=== PATIENT | female | born 1935 | race Caucasian/White ===

== ENCOUNTER 2020-03-28 08:21 | Outpatient (REF) | payer MEDICARE, OTHER, SELFPAY ==
[2020-03-28 10:18] LABS: MANUAL DIFF FLAG NO
[2020-03-28 10:35] LABS: Basophils Percent Auto 0.8 % (0-2); Eosinophils Absolute Auto 0.2 X10*3/uL (0.0-0.4); Eosinophils Percent Auto 4.2 % (0-4); Hematocrit 36.7 % (37-47); Hemoglobin 11.4 g/dl (12.0-16.0); Imm Gran Abs Auto 0.01 X10*3/uL (0.00-0.03); Imm Gran Pct Auto 0.3 % (0.0-0.4); Lymphocytes Percent Auto 27.1 % (20-40); Mean Corpuscular HGB Conc 31.1 g/dl (31.0-35.0); Mean Corpuscular Hemoglobin 30.7 pg (27.0-33.0); Mean Corpuscular Volume 98.9 fL (80-98); Mean Platelet Volume 11.8 fL (9.4-12.3); Monocytes Absolute Auto 0.5 X10*3/uL (0.1-1.2); Monocytes Percent Auto 12.1 % (2-11); Neutrophils Absolute Auto 2.1 X10*3/uL (2.0-8.3); Neutrophils Percent Auto 55.5 % (45-73); Platelet Count 229 X10*3/uL (160-400); Red Blood Count 3.71 X10*6/uL (4.20-5.50); Red Cell Distribution Width 12.2 % (11.0-16.0); White Blood Count 3.8 X10*3/uL (4.8-10.8)
[2020-03-28 11:04] LABS: Alanine Aminotransferase 18 U/L (0-31); Albumin Level 4.1 g/dL (3.5-5.0); Alkaline Phosphatase 33 U/L (39-117); Anion Gap 15 (12-20); Aspartate Amino Transferase 24 U/L (5-31); Bilirubin Total 0.5 mg/dL (0.0-1.0); Blood Urea Nitrogen 27 mg/dL (9-16); Calcium 9.1 mg/dL (8.4-10.2); Carbon Dioxide 20 mmol/L (22-29); Chloride 111 mmol/L (96-108); Cholesterol 170 mg/dL; Estimated Glomerular Filt Rate 44; Glucose Fasting 94 mg/dL (60-99); HDL Cholesterol 53 mg/dL; LDL Cholesterol Calculated 80 mg/dl; Potassium 4.8 mmol/l (3.3-5.1); Sodium 141 mmol/L (135-145); Total Protein 6.9 g/dL (6.5-8.0); Triglycerides 189 mg/dL
[2020-03-28 13:16] LABS: Renal w Reflex Lab Use Only Order verified
== END 2020-03-28 08:22 | disposition home or self-care (01) ==
LOC: HO.10HDL 08:21
PROVIDERS: Absent Provider Internal Medicine Nephrology; Visit Provider Internal Medicine
DX: I12.9 Hypertensive chronic kidney disease with stage 1 through stage 4 chronic kidney disease, or unspecified chronic kidney disease (principal); N18.30 Chronic kidney disease, stage 3 unspecified; D64.9 Anemia, unspecified; E78.5 Hyperlipidemia, unspecified
CPT/HCPCS: 36415; 80053; 80061; 85025

== ENCOUNTER 2020-09-06 08:17 | Outpatient (REF) | payer MEDICARE, OTHER, SELFPAY ==
[2020-09-06 10:03] LABS: MANUAL DIFF FLAG NO
[2020-09-06 10:07] LABS: Basophils Percent Auto 0.6 % (0-2); Eosinophils Absolute Auto 0.2 X10*3/uL (0.0-0.4); Eosinophils Percent Auto 3.7 % (0-4); Hematocrit 38.4 % (37-47); Imm Gran Abs Auto 0.02 X10*3/uL (0.00-0.03); Imm Gran Pct Auto 0.4 % (0.0-0.4); Lymphocytes Absolute Auto 1.2 X10*3/uL (1.2-4.9); Lymphocytes Percent Auto 24.7 % (20-40); Mean Corpuscular HGB Conc 31.3 g/dl (31.0-35.0); Mean Corpuscular Hemoglobin 30.7 pg (27.0-33.0); Mean Corpuscular Volume 98.2 fL (80-98); Mean Platelet Volume 11.6 fL (9.4-12.3); Monocytes Absolute Auto 0.6 X10*3/uL (0.1-1.2); Monocytes Percent Auto 11.4 % (2-11); NRBC Pct Auto 0.6 /100WBC (0.0-0.2); Neutrophils Absolute Auto 2.9 X10*3/uL (2.0-8.3); Neutrophils Percent Auto 59.2 % (45-73); Platelet Count 237 X10*3/uL (160-400); Red Blood Count 3.91 X10*6/uL (4.20-5.50); White Blood Count 4.9 X10*3/uL (4.8-10.8)
[2020-09-06 10:39] LABS: Alanine Aminotransferase 17 U/L (0-31); Albumin Level 4.4 g/dL (3.5-5.0); Alkaline Phosphatase 37 U/L (39-117); Anion Gap 14 (12-20); Aspartate Amino Transferase 22 U/L (5-31); Bilirubin Total 0.4 mg/dL (0.0-1.0); Blood Urea Nitrogen 30 mg/dL (9-16); Calcium 10.1 mg/dL (8.4-10.2); Carbon Dioxide 23 mmol/L (22-29); Chloride 109 mmol/L (96-108); Estimated Glomerular Filt Rate 46; Glucose Fasting 103 mg/dL (60-99); Phosphorus 3.4 mg/dL (2.7-4.5); Potassium 4.9 mmol/L (3.3-5.1); Sodium 141 mmol/L (135-145); Total Protein 7.4 g/dL (6.5-8.0)
[2020-09-07 13:06] LABS: Calcium (PTHI) 10.2 mg/dL (8.6-10.4); PTHI 9 pg/mL (14-64)
== END 2020-09-06 08:18 | disposition home or self-care (01) ==
LOC: HO.10HDL 08:17
PROVIDERS: Absent Provider Internal Medicine Nephrology; Visit Provider Internal Medicine
DX: I12.9 Hypertensive chronic kidney disease with stage 1 through stage 4 chronic kidney disease, or unspecified chronic kidney disease (principal); N18.31 Chronic kidney disease, stage 3a
CPT/HCPCS: 36415; 80053; 83970; 84100; 85025

== ENCOUNTER 2020-09-11 11:36 | Outpatient (REF) | payer MEDICARE, OTHER, SELFPAY ==
[2020-09-11 15:07] LABS: Creatinine Urine 74.12 mg/dL; Microalbum/Creatinine Ratio Ur 9.4 ug/mg cr; Total Protein Urine Random < 7 mg/dL (<12)
== END 2020-09-11 11:37 | disposition home or self-care (01) ==
LOC: HO.10HDLNP 11:36
PROVIDERS: Visit Provider Internal Medicine Nephrology
DX: I12.9 Hypertensive chronic kidney disease with stage 1 through stage 4 chronic kidney disease, or unspecified chronic kidney disease (principal); N18.31 Chronic kidney disease, stage 3a
CPT/HCPCS: 82043; 84156

== ENCOUNTER 2020-12-25 12:48 | Outpatient (REF) | payer MEDICARE, OTHER, SELFPAY ==
--- NOTE | ~2020-12-25 | US_ITS ---
EXAMINATION: US EXTRACRANIAL CAROTID DUPLEX, BILATERAL CLINICAL INFORMATION: This is an 85-year-old female with right carotid bruit. Carotid artery disease. History of carotid artery stenosis. COMPARISON: Comparison is made to a previous study dated 12/06/2019 which demonstrated 50-79% right internal carotid artery stenosis and 0-49% left internal carotid artery stenosis. TECHNIQUE: Real-time ultrasound and Doppler techniques (integrating B-mode 2-D vascular images, Doppler spectral analysis and color-flow Doppler imaging) were utilized to interrogate the extracranial carotid arteries, the vertebral arteries and proximal subclavian arteries bilaterally. The degree of stenosis is determined by criteria similar to NASCET. FINDINGS: Right Side: 1. There is moderate atherosclerotic plaque seen in the bifurcation/proximal ICA region. 2. The common carotid artery PSV proximally is 69 cm/s and distally 72 cm/s. 3. The proximal internal carotid artery velocities are 168 cm/s systolic and 33 cm/s diastolic. 4. The proximal external carotid artery PSV is 87 cm/s. 5. The vertebral artery shows antegrade flow. 6. The subclavian artery waveforms are normal. Left Side: 1. There is moderate atherosclerotic plaque seen in the bifurcation/proximal ICA region. 2. The common carotid artery PSV proximally is 79 cm/s and distally 101 cm/s. 3. The proximal internal carotid artery velocities are 81 cm/s systolic and 25 cm/s diastolic. 4. The proximal external carotid artery PSV is 86 cm/s. 5. The vertebral artery shows antegrade flow. 6. The subclavian artery waveforms are normal. US/US carotid duplex BI IMPRESSION: 1. RIGHT: Moderate, hemodynamically significant stenosis of the proximal right internal carotid artery corresponding to a 50-79% stenosis by velocity criteria. 2. LEFT: Minimal, non-hemodynamically significant stenosis of the proximal left internal carotid artery corresponding to a 0-49% stenosis by velocity criteria. 3. There is no change in the category severity of disease when compared to the previous study dated 12/06/2019.
== END 2020-12-25 12:49 | disposition home or self-care (01) ==
LOC: HO.US 12:48
PROVIDERS: PCP Internal Medicine; Visit Provider Surgery Vascular Surgery
DX: I65.21 Occlusion and stenosis of right carotid artery (principal)
CPT/HCPCS: 93880

== ENCOUNTER → 2021-01-02 09:16 | Outpatient (BNVA) | payer MEDICARE, OTHER, SELFPAY | PROVIDERS: PCP Internal Medicine; Visit Provider Surgery Vascular Surgery | DX: I65.23 Occlusion and stenosis of bilateral carotid arteries (principal) | CPT/HCPCS: 99212 ==

== ENCOUNTER 2021-01-10 08:58 | Outpatient (REF) | payer MEDICARE, OTHER, SELFPAY ==
[2021-01-10 11:19] LABS: Anion Gap 14 (12-20); Blood Urea Nitrogen 28 mg/dL (9-16); Carbon Dioxide 21 mmol/L (22-29); Chloride 110 mmol/L (96-108); Estimated Glomerular Filt Rate 45; Potassium 4.8 mmol/L (3.3-5.1); Sodium 140 mmol/L (135-145)
== END 2021-01-10 08:59 | disposition home or self-care (01) ==
LOC: HO.10HDL 08:58
PROVIDERS: Visit Provider Internal Medicine Nephrology
DX: I12.9 Hypertensive chronic kidney disease with stage 1 through stage 4 chronic kidney disease, or unspecified chronic kidney disease (principal); N18.31 Chronic kidney disease, stage 3a
CPT/HCPCS: 36415; 80051; 82310; 82565; 84520

== ENCOUNTER 2021-03-28 08:09 | Outpatient (REF) | payer MEDICARE, OTHER, SELFPAY ==
--- NOTE | ~2021-03-28 | MM_ITS ---
EXAMINATION: MM SCREENING DIGITAL BREAST TOMOSYNTHESIS, BILATERAL CLINICAL INFORMATION: Screening. Asymptomatic. The lifetime risk of breast cancer based on the Tyrer-Cuzick Model is 1%. COMPARISON: Mammography: 03/11/2019, 12/23/2017, 11/14/2016 TECHNIQUE: Digital breast tomosynthesis is performed in both the craniocaudal and mediolateral oblique views along with computer-aided detection (CAD). Synthesized 2D images are generated from the tomosynthesis. Additional exaggerated left CC view is provided. FINDINGS: There are scattered areas of fibroglandular density (ACR BI-RADS breast composition Category b). There are no significant masses, abnormal calcifications, or other abnormalities. Fine fibronodular parenchymal pattern is similar to prior studies. There are scattered isolated and grouped round and coarse and some vascular calcifications. The axilla and skin contours are unremarkable. No significant changes. MM/MM tomosynthesis screening BI IMPRESSION: No mammographic evidence of malignancy. ASSESSMENT: BI-RADS 2: Benign RECOMMENDATION: Routine annual mammography screening. This patient's information was entered into a reminder system with a target due date for their next mammogram.
--- NOTE | ~2021-03-28 | MM_ITS ---
EXAMINATION: BONE DENSITOMETRY CLINICAL INDICATION: Screening. COMPARISON: Previous BD dated 03/11/2019 and baseline BD dated 10/24/2009. TECHNIQUE: Using a [employer] DXA System (software version: 13.1) manufactured by [employer], dual-energy x-ray absorptiometry was performed of the lumbar spine and left hip. The images are of good technical quality. Summary results are attached. FINDINGS: AP SPINE L1-L4: Current: BMD 1.350 g/cm2, Z-score 2.8, T-score 1.4, normal, 0.8% increase from previous, 6.6% increase from baseline (<5% change is not significant). Prior: BMD 1.339 g/cm2. Baseline: BMD 1.267 g/cm2. LEFT FEMUR, NECK: Current: BMD 0.799 g/cm2, Z-score 0.3, T-score -1.7, osteopenia. Prior: BMD 0.778 g/cm2. Baseline: BMD 0.876 g/cm2. LEFT FEMUR, TOTAL: Current: BMD 0.788 g/cm2, Z-score 0.1, T-score -1.7, osteopenia, 2.6% increase from previous, 7.5% decrease from baseline (<5% change is not significant). Prior: BMD 0.768 g/cm2. Baseline: BMD 0.852 g/cm2. IDENTIFIED RISK FACTORS: Early menopause, height loss, secondary osteoporosis. HISTORY OF FRACTURE: None listed. MEDICATIONS: Calcium, vitamin D. MM/XR DEXA axial skeleton IMPRESSION: 1. DIAGNOSIS: Osteopenia based on the lowest T-score value of -1.7 in the femur neck and total femur applying World Health Organization criteria. 2. 10-YEAR FRACTURE RISK PREDICTION, FRAX: Major osteoporotic fracture (clinical spine, forearm, hip or shoulder) 14.0%. Hip fracture 3.9%. 3. Treatment Recommendations: NOF guidelines recommend consideration for treatment in postmenopausal women and men age 50 and older presenting with the following: -A hip or vertebral (clinical or morphometric) fracture. -T-score less than or equal to -2.5 at the femoral neck or spine after appropriate evaluation to exclude secondary causes. -Low bone mass at the hip or spine and a 10-year fracture probability by FRAX of greater than or equal to 3% for hip fracture or greater than or equal to 20% for major osteoporotic fracture based on the [place] adapted WHO algorithm. 4. Other Recommendations: All treatment decisions require clinical judgment and consideration of individual patient factors, including patient preferences, comorbidities, previous drug use, risk factors not captured in the FRAX model (e.g. frailty, falls, vitamin D deficiency, increased bone turnover, interval significant decline in bone density) and possible under or overestimation of fracture risk by FRAX. Additional medical evaluation for secondary cause of low bone mineral density may be appropriate. FUTURE SCAN RECOMMENDATION: People with diagnosed cases of osteoporosis or at high risk for fracture should have regular bone mineral density tests. For patients eligible for Medicare, routine testing is allowed once every 2 years. The testing frequency can be increased to one year for patients who have rapidly progressing disease, those who are receiving or discontinuing medical therapy to restore bone mass, or have additional risk factors.
== END 2021-03-28 08:10 | disposition home or self-care (01) ==
LOC: HO.MAMMO 08:09
PROVIDERS: Visit Provider Internal Medicine
DX: Z12.31 Encounter for screening mammogram for malignant neoplasm of breast (principal); Z13.820 Encounter for screening for osteoporosis; M85.80 Other specified disorders of bone density and structure, unspecified site; Z78.0 Asymptomatic menopausal state; Z79.899 Other long term (current) drug therapy
CPT/HCPCS: 77063; 77067; 77080

== ENCOUNTER 2021-04-27 08:43 | Outpatient (REF) | payer MEDICARE, OTHER, SELFPAY ==
[2021-04-27 10:38] LABS: MANUAL DIFF FLAG NO
[2021-04-27 10:41] LABS: Appearance Urine HAZY; Color Urine YELLOW; Glucose Urine UA NEG (NEG); Leukocyte Esterase Urine 3+ (NEG); Nitrite Urine NEG (NEG); Urine Blood NEG (NEG); Urine Ketones NEG (NEG); Urine Protein NEG (NEG-TRACE)
[2021-04-27 10:42] LABS: Basophils Percent Auto 0.6 % (0-2); Eosinophils Absolute Auto 0.2 X10*3/uL (0.0-0.4); Eosinophils Percent Auto 4.3 % (0-4); Hematocrit 37.3 % (37.0-47.0); Hemoglobin 11.9 g/dl (12.0-16.0); Imm Gran Abs Auto 0.01 X10*3/uL (0.00-0.03); Imm Gran Pct Auto 0.2 % (0.0-0.4); Lymphocytes Absolute Auto 1.2 X10*3/uL (1.2-4.9); Lymphocytes Percent Auto 26.4 % (20-40); Mean Corpuscular HGB Conc 31.9 g/dl (31.0-35.0); Mean Corpuscular Hemoglobin 30.7 pg (27.0-33.0); Mean Corpuscular Volume 96.4 fL (80.0-98.0); Mean Platelet Volume 11.6 fL (9.4-12.3); Monocytes Absolute Auto 0.6 X10*3/uL (0.1-1.2); Monocytes Percent Auto 12.4 % (2-11); Neutrophils Absolute Auto 2.6 x10*3/uL (2.0-8.3); Neutrophils Percent Auto 56.1 % (45-73); Platelet Count 251 X10*3/uL (160-400); Red Blood Count 3.87 X10*6/uL (4.20-5.50); Red Cell Distribution Width 12.1 % (11.0-16.0); White Blood Count 4.7 X10*3/uL (4.8-10.8)
[2021-04-27 10:49] LABS: Bacteria Urine TRACE /LPF; RBC Urine 0-2 /HPF (0)
[2021-04-27 10:50] LABS: Mucus Urine 1+ /LPF; Renal Epithelial Cells Urine 1+ /LPF; Squamous Epithelial Cell Urine 2+ /LPF
[2021-04-27 10:58] LABS: Alanine Aminotransferase 19 U/L (0-31); Albumin Level 4.3 g/dL (3.5-5.0); Alkaline Phosphatase 39 U/L (39-117); Anion Gap 14 (12-20); Aspartate Amino Transferase 26 U/L (5-31); Bilirubin Total 0.6 mg/dL (0.0-1.0); Blood Urea Nitrogen 27 mg/dL (9-16); Carbon Dioxide 22 mmol/L (22-29); Chloride 109 mmol/L (96-108); Cholesterol 181 mg/dL; Estimated Glomerular Filt Rate 42; Glucose Fasting 104 mg/dL (60-99); HDL Cholesterol 61 mg/dL; LDL Cholesterol Calculated 93 mg/dl; Potassium 4.5 mmol/L (3.3-5.1); Sodium 140 mmol/L (135-145); Total Protein 7.2 g/dL (6.5-8.0); Triglycerides 138 mg/dL
[2021-04-27 11:11] LABS: Creatinine Urine 67.27 mg/dL; Total Protein Urine Random < 7 mg/dL (<12)
== END 2021-04-27 08:44 | disposition home or self-care (01) ==
LOC: HO.10HDL 08:43
PROVIDERS: Absent Provider Internal Medicine Nephrology; Visit Provider Internal Medicine
DX: I12.9 Hypertensive chronic kidney disease with stage 1 through stage 4 chronic kidney disease, or unspecified chronic kidney disease (principal); N18.9 Chronic kidney disease, unspecified; E78.00 Pure hypercholesterolemia, unspecified; M19.90 Unspecified osteoarthritis, unspecified site; K57.90 Diverticulosis of intestine, part unspecified, without perforation or abscess without bleeding
CPT/HCPCS: 36415; 80053; 80061; 81001; 84156; 85025

== ENCOUNTER 2021-12-20 09:05 | Outpatient (REF) | payer MEDICARE, OTHER, SELFPAY ==
[2021-12-20 10:54] LABS: MANUAL DIFF FLAG NO
[2021-12-20 11:13] LABS: Basophils Percent Auto 0.6 % (0-2); Eosinophils Absolute Auto 0.2 X10*3/uL (0.0-0.4); Eosinophils Percent Auto 3.2 % (0-4); Hematocrit 37.1 % (37.0-47.0); Hemoglobin 11.8 g/dl (12.0-16.0); Imm Gran Abs Auto 0.02 X10*3/uL (0.00-0.03); Imm Gran Pct Auto 0.4 % (0.0-0.4); Lymphocytes Absolute Auto 1.5 X10*3/uL (1.2-4.9); Lymphocytes Percent Auto 30.9 % (20-40); Mean Corpuscular HGB Conc 31.8 g/dl (31.0-35.0); Mean Corpuscular Hemoglobin 30.3 pg (27.0-33.0); Mean Corpuscular Volume 95.1 fL (80.0-98.0); Mean Platelet Volume 11.6 fL (9.4-12.3); Monocytes Absolute Auto 0.7 X10*3/uL (0.1-1.2); Neutrophils Absolute Auto 2.4 x10*3/uL (2.0-8.3); Neutrophils Percent Auto 49.9 % (45-73); Platelet Count 249 X10*3/uL (160-400); Red Cell Distribution Width 12.7 % (11.0-16.0); White Blood Count 4.7 X10*3/uL (4.8-10.8)
[2021-12-20 12:10] LABS: Alanine Aminotransferase 14 U/L (0-31); Albumin Level 4.2 g/dL (3.5-5.0); Alkaline Phosphatase 40 U/L (39-117); Anion Gap 18 (12-20); Aspartate Amino Transferase 22 U/L (5-31); Bilirubin Total 0.4 mg/dL (0.0-1.0); Blood Urea Nitrogen 31 mg/dL (9-16); C Reactive Protein 0.12 mg/dL (< or = 0.50); Calcium 9.5 mg/dL (8.4-10.2); Carbon Dioxide 17 mmol/L (22-29); Chloride 111 mmol/L (96-108); Estimated Glomerular Filt Rate 40; Glucose Random 120 mg/dL (60-115); Lipase 71 U/L (8-78); Potassium 5.5 mmol/L (3.3-5.1); Sodium 140 mmol/L (135-145); Total Protein 7.2 g/dL (6.5-8.0)
== END 2021-12-20 09:06 | disposition home or self-care (01) ==
LOC: HO.10HDL 09:05
PROVIDERS: Absent Provider Internal Medicine Nephrology; Visit Provider Internal Medicine
DX: I12.9 Hypertensive chronic kidney disease with stage 1 through stage 4 chronic kidney disease, or unspecified chronic kidney disease (principal); N18.31 Chronic kidney disease, stage 3a; R10.9 Unspecified abdominal pain; K21.9 Gastro-esophageal reflux disease without esophagitis
CPT/HCPCS: 36415; 80053; 83690; 85025; 86140

== ENCOUNTER 2022-02-28 09:44 | Outpatient (REF) | payer MEDICARE, OTHER, SELFPAY ==
--- NOTE | ~2022-02-28 | US_ITS ---
EXAMINATION: US EXTRACRANIAL CAROTID DUPLEX, BILATERAL CLINICAL INFORMATION: Occlusion and stenosis bilateral carotids COMPARISON: 12/25/2020 TECHNIQUE: Real-time ultrasound and Doppler techniques (integrating B-mode 2-D vascular images, Doppler spectral analysis and color-flow Doppler imaging) were utilized to interrogate the extracranial carotid arteries, the vertebral arteries and proximal subclavian arteries bilaterally. The degree of stenosis is determined by criteria similar to NASCET. FINDINGS: Right Side: 1. There is moderate heterogeneously calcified atherosclerotic plaque seen in the bifurcation/proximal ICA region. 2. The common carotid artery PSV proximally is 70.8 cm/s and distally 57.8 cm/s. 3. The proximal internal carotid artery velocities are 105 cm/s systolic and 22.4 cm/s diastolic. 4. The proximal external carotid artery PSV is 70.9 cm/s. 5. The vertebral artery shows antegrade flow. 6. The subclavian artery waveforms are normal. Left Side: 1. There is moderate heterogeneously calcified atherosclerotic plaque seen in the bifurcation/proximal ICA region. 2. The common carotid artery PSV proximally is 82 cm/s and distally 84.5 cm/s. 3. The proximal internal carotid artery velocities are 83.9 cm/s systolic and 16.8 cm/s diastolic. 4. The proximal external carotid artery PSV is 62.7 cm/s. 5. The vertebral artery shows antegrade flow. 6. The subclavian artery waveforms are normal. US/US carotid duplex BI IMPRESSION: 1. RIGHT: Minimal, non-hemodynamically significant stenosis of the proximal right internal carotid artery corresponding to a 0-49% stenosis by velocity criteria. 2. LEFT: Minimal, non-hemodynamically significant stenosis of the proximal left internal carotid artery corresponding to a 0-49% stenosis by velocity criteria.
== END 2022-02-28 09:45 | disposition home or self-care (01) ==
LOC: HO.US 09:44
PROVIDERS: PCP Internal Medicine; Visit Provider Internal Medicine
DX: I65.23 Occlusion and stenosis of bilateral carotid arteries (principal)
CPT/HCPCS: 93880

== ENCOUNTER 2022-04-03 08:00 | Outpatient (REF) | payer MEDICARE, OTHER, SELFPAY ==
--- NOTE | ~2022-04-03 | MM_ITS ---
EXAMINATION: MM SCREENING DIGITAL BREAST TOMOSYNTHESIS, BILATERAL CLINICAL INFORMATION: Screening. Asymptomatic. Family history breast cancer, sister. COMPARISON: Mammography: 03/28/2021, 03/11/2019, 12/23/2017 TECHNIQUE: Digital breast tomosynthesis is performed in both the craniocaudal and mediolateral oblique views along with computer-aided detection (CAD). Synthesized 2D images are generated from the tomosynthesis. FINDINGS: There are scattered areas of fibroglandular density (ACR BI-RADS breast composition Category b). Background stromal and fibroglandular densities are stable. There is incidental intramammary node mid 9:00 right breast. No interval mass or architectural abnormality or developing density. The axilla and skin contours are unremarkable. There are scattered round and vascular calcifications. Stable loosely grouped calcifications posterior 12:00 right breast. Right breast also has loosely grouped round calcifications mid 12:00 position possibly increased from prior exam. Patient will be recalled for additional imaging with magnification views. MM/MM tomosynthesis screening BI IMPRESSION: Right: -Loosely grouped calcifications mid right breast, questionably increased from prior exam. Left: -No mammographic evidence of malignancy. ASSESSMENT: BI-RADS 0: Incomplete - Need Additional Imaging Evaluation RECOMMENDATION: 1. Additional views of the right breast (magnification CC, magnification ML). 2. Radiology department staff will contact the patient for additional imaging. This patient's information was entered into a reminder system with a target due date for their next mammogram.
== END 2022-04-03 08:01 | disposition home or self-care (01) ==
LOC: HO.MAMMO 08:00
PROVIDERS: Visit Provider Internal Medicine
DX: Z12.31 Encounter for screening mammogram for malignant neoplasm of breast (principal)
CPT/HCPCS: 77063; 77067

== ENCOUNTER 2022-04-15 08:45 | Outpatient (REF) | payer MEDICARE, OTHER, SELFPAY ==
--- NOTE | ~2022-04-15 | MM_ITS ---
EXAMINATION: MM DIAGNOSTIC DIGITAL MAMMOGRAPHY, RIGHT CLINICAL INFORMATION: Recall from screening for loosely grouped calcifications mid 12:00 right breast. Family history breast cancer, sister. COMPARISON: Mammography: 04/03/2022, 03/28/2021, 03/11/2019 TECHNIQUE: Digital mammography is performed in the following views: Magnification CC, magnification ML. FINDINGS: There are scattered areas of fibroglandular density (ACR BI-RADS breast composition Category b). The additional magnification views show benign appearing loosely grouped round calcifications mid 12:00 right breast. There are no pleomorphic types or ductal distribution. Calcifications are increased since 2019. Results are discussed with the patient at time of visit. Calcifications have a benign appearance and will be reassessed again in 6 months to include magnification views. MM/MM added views RT IMPRESSION: Additional views demonstrate benign-appearing loosely grouped round calcifications mid 12:00. ASSESSMENT: BI-RADS 3: Probably Benign RECOMMENDATION: Diagnostic right mammography in 6 months. This patient's information was entered into a reminder system with a target due date for their next mammogram.
== END 2022-04-15 08:46 | disposition home or self-care (01) ==
LOC: HO.MAMMO 08:45
PROVIDERS: PCP Internal Medicine; Visit Provider Internal Medicine
DX: R92.1 Mammographic calcification found on diagnostic imaging of breast (principal)
CPT/HCPCS: 77065

== ENCOUNTER → 2022-04-18 13:00 | Outpatient (BNVA) | payer MEDICARE, OTHER, SELFPAY | PROVIDERS: PCP Internal Medicine; Visit Provider Surgery Vascular Surgery | DX: I65.23 Occlusion and stenosis of bilateral carotid arteries (principal); I10 Essential (primary) hypertension; E78.5 Hyperlipidemia, unspecified | CPT/HCPCS: 99212 ==

== ENCOUNTER 2022-07-02 08:14 | Outpatient (REF) | payer MEDICARE, OTHER, SELFPAY ==
[2022-07-02 10:37] LABS: MANUAL DIFF FLAG NO
[2022-07-02 10:53] LABS: Basophils Absolute Auto 0.1 X10*3/uL (0.0-0.2); Eosinophils Absolute Auto 0.2 X10*3/uL (0.0-0.4); Eosinophils Percent Auto 4.7 % (0-4); Hemoglobin 11.8 g/dl (12.0-16.0); Imm Gran Abs Auto 0.02 X10*3/uL (0.00-0.03); Imm Gran Pct Auto 0.4 % (0.0-0.4); Lymphocytes Absolute Auto 1.5 X10*3/uL (1.2-4.9); Lymphocytes Percent Auto 28.9 % (20-40); Mean Corpuscular HGB Conc 31.1 g/dl (31.0-35.0); Mean Corpuscular Hemoglobin 30.6 pg (27.0-33.0); Mean Corpuscular Volume 98.7 fL (80.0-98.0); Mean Platelet Volume 12.2 fL (9.4-12.3); Monocytes Absolute Auto 0.6 X10*3/uL (0.1-1.2); Monocytes Percent Auto 12.3 % (2-11); Neutrophils Absolute Auto 2.7 x10*3/uL (2.0-8.3); Neutrophils Percent Auto 52.7 % (45-73); Platelet Count 225 X10*3/uL (160-400); Red Blood Count 3.85 X10*6/uL (4.20-5.50); Red Cell Distribution Width 12.7 % (11.0-16.0); White Blood Count 5.1 X10*3/uL (4.8-10.8)
[2022-07-02 11:08] LABS: Alanine Aminotransferase 18 U/L (0-31); Albumin Level 4.1 g/dL (3.5-5.0); Alkaline Phosphatase 36 U/L (39-117); Anion Gap 13 (12-20); Aspartate Amino Transferase 25 U/L (5-31); Bilirubin Total 0.5 mg/dL (0.0-1.0); Blood Urea Nitrogen 29 mg/dL (9-16); Calcium 9.9 mg/dL (8.4-10.2); Carbon Dioxide 22 mmol/L (22-29); Chloride 109 mmol/L (96-108); Cholesterol 184 mg/dL; Estimated Glomerular Filt Rate 45; Glucose Fasting 101 mg/dL (60-99); HDL Cholesterol 58 mg/dL; LDL Cholesterol Calculated 93 mg/dl; Potassium 4.4 mmol/L (3.3-5.1); Sodium 140 mmol/L (135-145); Total Protein 6.9 g/dL (6.5-8.0); Triglycerides 168 mg/dL
== END 2022-07-02 08:15 | disposition home or self-care (01) ==
LOC: HO.10HDL 08:14
PROVIDERS: Absent Provider Internal Medicine Nephrology; Visit Provider Internal Medicine
DX: I12.9 Hypertensive chronic kidney disease with stage 1 through stage 4 chronic kidney disease, or unspecified chronic kidney disease (principal); N18.31 Chronic kidney disease, stage 3a; E78.00 Pure hypercholesterolemia, unspecified
CPT/HCPCS: 36415; 80053; 80061; 85025

== ENCOUNTER 2022-10-18 12:59 | Outpatient (REF) | payer MEDICARE, OTHER, SELFPAY ==
--- NOTE | ~2022-10-18 | MM_ITS ---
EXAMINATION: MM DIAGNOSTIC DIGITAL BREAST TOMOSYNTHESIS, RIGHT CLINICAL INFORMATION: Short interval six-month follow-up probable benign loosely grouped round calcifications mid 12:00 right breast. COMPARISON: Mammography: 04/15/2022, 06/03/2021 (BI-RADS 0), 03/28/2021, 03/11/2019 TECHNIQUE: Digital breast tomosynthesis is performed in both the craniocaudal and mediolateral oblique views along with computer-aided detection (CAD). Synthesized 2D images are generated from the tomosynthesis. Additional magnification right CC x2 and magnification right ML views are obtained. FINDINGS: There are scattered areas of fibroglandular density (ACR BI-RADS breast composition Category b). Parenchymal pattern is similar to prior studies and there is no developing density or interval mass or architectural abnormality. Intramammary node again seen mid 9:00 right breast. The axilla and skin contours are unremarkable. There are scattered benign round and vascular calcifications. The loosely grouped calcifications for short interval follow-up mid 12:00 position are stable from prior diagnostic exam and have a probable benign appearance. They will be reassessed again at time of annual bilateral mammography, due in 6 months. Results are provided to the patient at time of visit by the technologist. MM/MM tomosynthesis diagnostic RT IMPRESSION: -No mammographic evidence of malignancy. -Calcifications for follow-up mid 12:00, stable. ASSESSMENT: BI-RADS 3: Probably Benign RECOMMENDATION: Diagnostic mammography at time of annual bilateral mammography, due in 6 months. This patient's information was entered into a reminder system with a target due date for their next mammogram.
== END 2022-10-18 13:00 | disposition home or self-care (01) ==
LOC: HO.MAMMO 12:59
PROVIDERS: PCP Internal Medicine; Visit Provider Internal Medicine
DX: R92.1 Mammographic calcification found on diagnostic imaging of breast (principal)
CPT/HCPCS: 77061; 77065

== ENCOUNTER 2022-12-31 08:45 | Outpatient (REF) | payer MEDICARE, OTHER, SELFPAY ==
[2022-12-31 10:44] LABS: MANUAL DIFF FLAG NO
[2022-12-31 10:52] LABS: Basophils Absolute Auto 0.1 X10*3/uL (0.0-0.2); Basophils Percent Auto 0.9 % (0-2); Eosinophils Absolute Auto 0.2 X10*3/uL (0.0-0.4); Eosinophils Percent Auto 3.4 % (0-4); Hematocrit 37.2 % (37.0-47.0); Hemoglobin 11.5 g/dl (12.0-16.0); Imm Gran Abs Auto 0.01 X10*3/uL (0.00-0.03); Imm Gran Pct Auto 0.2 % (0.0-0.4); Lymphocytes Absolute Auto 1.7 X10*3/uL (1.2-4.9); Mean Corpuscular HGB Conc 30.9 g/dl (31.0-35.0); Mean Corpuscular Hemoglobin 30.7 pg (27.0-33.0); Mean Corpuscular Volume 99.2 fL (80.0-98.0); Mean Platelet Volume 11.5 fL (9.4-12.3); Monocytes Absolute Auto 0.7 X10*3/uL (0.1-1.2); Neutrophils Absolute Auto 2.9 x10*3/uL (2.0-8.3); Neutrophils Percent Auto 51.5 % (45-73); Platelet Count 254 X10*3/uL (160-400); Red Blood Count 3.75 X10*6/uL (4.20-5.50); Red Cell Distribution Width 13.2 % (11.0-16.0); White Blood Count 5.5 X10*3/uL (4.8-10.8)
[2022-12-31 11:02] LABS: Alanine Aminotransferase 16 U/L (0-31); Albumin Level 4.1 g/dL (3.5-5.0); Alkaline Phosphatase 32 U/L (39-117); Anion Gap 12 (12-20); Aspartate Amino Transferase 23 U/L (5-31); Bilirubin Total 0.3 mg/dL (0.0-1.0); Blood Urea Nitrogen 34 mg/dL (9-16); Calcium 9.7 mg/dL (8.4-10.2); Carbon Dioxide 18 mmol/L (22-29); Chloride 117 mmol/L (96-108); Estimated Glomerular Filt Rate 51; Glucose Random 114 mg/dL (60-115); Potassium 4.2 mmol/L (3.3-5.1); Sodium 143 mmol/L (135-145); Total Protein 7.2 g/dL (6.5-8.0)
[2022-12-31 11:06] LABS: Anion Gap 13 (12-20); Blood Urea Nitrogen 33 mg/dL (9-16); Calcium 10.1 mg/dL (8.4-10.2); Carbon Dioxide 18 mmol/L (22-29); Chloride 117 mmol/L (96-108); Estimated Glomerular Filt Rate 52; Potassium 4.3 mmol/L (3.3-5.1); Sodium 144 mmol/L (135-145)
[2022-12-31 11:25] LABS: Vitamin D 25-OH Total 33.1 ng/mL (>30)
== END 2022-12-31 08:46 | disposition home or self-care (01) ==
LOC: HO.10HDL 08:45
PROVIDERS: Absent Provider Internal Medicine Nephrology; Visit Provider Internal Medicine
DX: I12.9 Hypertensive chronic kidney disease with stage 1 through stage 4 chronic kidney disease, or unspecified chronic kidney disease (principal); N18.9 Chronic kidney disease, unspecified; K57.90 Diverticulosis of intestine, part unspecified, without perforation or abscess without bleeding
CPT/HCPCS: 36415; 80051; 80053; 82306; 82310; 82565; 84520; 85025

== ENCOUNTER 2023-04-08 15:16 | Outpatient (REF) | payer MEDICARE, OTHER, SELFPAY ==
--- NOTE | ~2023-04-08 | US_ITS ---
EXAMINATION: US VENOUS ULTRASOUND WITH DOPPLER LOWER EXTREMITY, LEFT CLINICAL INFORMATION: Left leg pain. COMPARISON: None available. TECHNIQUE: Ultrasound of the deep veins is performed from the hip to the calf with compression sonography and color and pulse Doppler assessment. Spectral analysis with color-flow imaging is performed. FINDINGS: There is normal venous compression and respiratory variation and augmented flow. The visualized common femoral vein, superficial femoral vein, profunda femoral vein, popliteal vein, and the trifurcation region shows no evidence of deep venous thrombosis. There is a 7.5 x 1 x 4.1 cm popliteal fossa cyst. If the patient's symptoms persist, followup ultrasound in 5 days 7 days might be of value to exclude proximal propagation from a non-visualized calf vein. US/US venous duplex LE IMPRESSION: No DVT demonstrated in the left lower extremity.
== END 2023-04-08 15:17 | disposition home or self-care (01) ==
LOC: HO.US 15:16
PROVIDERS: Visit Provider Internal Medicine
DX: M79.605 Pain in left leg (principal)
CPT/HCPCS: 93971

== ENCOUNTER 2023-05-13 12:42 | Outpatient (REF) | payer MEDICARE, OTHER, SELFPAY ==
--- NOTE | ~2023-05-13 | MM_ITS ---
EXAMINATION: MM DIAGNOSTIC DIGITAL BREAST TOMOSYNTHESIS, BILATERAL CLINICAL INFORMATION: 6 month follow-up right breast calcifications approximate 12:00 location posterior one third. This will be the third follow-up, to establish a 1.5 years stability. Patient also due for bilateral screening. COMPARISON: Mammography: 10/18/2022, 04/15/2022, 06/03/2021 (BI-RADS 0), 03/28/2021, 03/11/2019 TECHNIQUE: Digital breast tomosynthesis is performed in both the craniocaudal and mediolateral oblique views along with computer-aided detection (CAD). Synthesized 2D images are generated from the tomosynthesis. In addition, 2-D spot magnification CC and ML views were obtained of the right breast. Additional full-field 3-D CC views bilaterally were obtained FINDINGS: There are scattered areas of fibroglandular density (ACR BI-RADS breast composition Category b). Parenchymal pattern is similar to prior studies and there is no developing density or interval mass or architectural abnormality. Intramammary node again seen mid 9:00 right breast, and axillary tail left breast. There are benign vascular calcifications. The calcifications for short interval follow-up may be skin calcifications, are punctate, rounded, and completely unchanged in both number and morphology. These remain probably benign and 1 additional follow-up right breast diagnostic mammogram recommended to establish two-year stability. MM/MM tomosynthesis diagnostic BI IMPRESSION: There are no significant changes from prior study. Stable right breast probably benign calcifications 12:00 axis mid depth. Recommend final 6 month follow-up diagnostic right mammography to establish a two-year stability/benignity. No suspicious findings in the left breast. ASSESSMENT: BI-RADS BI-RADS 3 - Probably benign finding(s) - 6 month follow-up suggested RECOMMENDATION: 6 Month F/U Results were provided to the patient at time of visit by the technologist. This patient's information was entered into a reminder system with a target due date for their next mammogram.
== END 2023-05-13 12:43 | disposition home or self-care (01) ==
LOC: HO.MAMMO 12:42
PROVIDERS: PCP Internal Medicine; Visit Provider Internal Medicine
DX: R92.1 Mammographic calcification found on diagnostic imaging of breast (principal)
CPT/HCPCS: 77062; 77066

== ENCOUNTER → 2023-05-13 13:00 | Outpatient (BNV) | payer MEDICARE, OTHER, SELFPAY | PROVIDERS: PCP Internal Medicine; Visit Provider Radiology Diagnostic Radiology | DX: R92.1 Mammographic calcification found on diagnostic imaging of breast (principal) | CPT/HCPCS: 77066; G0279 ==

== ENCOUNTER 2023-05-15 08:35 | Outpatient (REF) | payer MEDICARE, OTHER, SELFPAY ==
[2023-05-15 11:32] LABS: Alanine Aminotransferase 15 U/L (0-31); Albumin Level 4.1 g/dL (3.5-5.0); Alkaline Phosphatase 38 U/L (39-117); Anion Gap 13 (12-20); Aspartate Amino Transferase 24 U/L (5-31); Bilirubin Total 0.5 mg/dL (0.0-1.0); Blood Urea Nitrogen 24 mg/dL (9-16); Calcium 9.9 mg/dL (8.4-10.2); Carbon Dioxide 20 mmol/L (22-29); Chloride 112 mmol/L (96-108); Cholesterol 163 mg/dL (<200); Estimated Glomerular Filt Rate 52; Glucose Fasting 98 mg/dL (60-99); HDL Cholesterol 55 mg/dL (>40); LDL Cholesterol Calculated 76 mg/dL (<100); Potassium 4.4 mmol/L (3.3-5.1); Sodium 141 mmol/L (135-145); Total Protein 7.2 g/dL (6.5-8.0); Triglycerides 162 mg/dL (<150)
== END 2023-05-15 08:36 | disposition home or self-care (01) ==
LOC: HO.10HDL 08:35
PROVIDERS: Visit Provider Internal Medicine
DX: I12.9 Hypertensive chronic kidney disease with stage 1 through stage 4 chronic kidney disease, or unspecified chronic kidney disease (principal); N18.9 Chronic kidney disease, unspecified; M19.90 Unspecified osteoarthritis, unspecified site; E78.5 Hyperlipidemia, unspecified
CPT/HCPCS: 36415; 80053; 80061; 81001; 85025

== ENCOUNTER 2023-06-02 07:39 | Day surgery (SDC) | payer MEDICARE, OTHER, SELFPAY ==
--- NOTE | 2023-05-23 12:13 | HP_ITS ---
DATE OF SERVICE: 06/02/2023 HISTORY OF PRESENT ILLNESS: Patient is an 88-year-old female, who is seen in the office for preop evaluation on 05/14/2023, scheduled for cataract surgery on 06/02/[address] Madsen. PAST MEDICAL HISTORY: Significant for hypertension, chronic renal insufficiency, elevated lipids, left sciatica, diverticulosis, osteopenia, arthritis of the knees, history of right corneal transplant, anemia, right carotid disease. REVIEW OF SYSTEMS: No fever, chills, or sweats. No weight change. No headaches or dizziness. No chest pains or palpitations. No peripheral edema. No shortness of breath or coughing. Occasional heartburn. No nausea, vomiting, or diarrhea. Occasional constipation. No abdominal pain. No dysuria. Some nocturia x1-2 at night, arthritis in the knees and hips, some back pain. Sleep and appetite are normal. She does have seasonal allergies. No skin complaints. PHYSICAL EXAMINATION: GENERAL: She is awake and alert, in no distress. VITAL SIGNS: 97.3 is temperature, pulse 78, respirations 12, blood pressure 138/72, oxygen saturation 97% on room air. Weight is 164, height is 5 feet 3 inches. HEENT: TMs clear. Pharynx clear. Extraocular motions are intact. NECK: No lymph nodes or bruits. HEART: Sounds S1 and S2. Regular rate and rhythm. LUNGS: Clear. ABDOMEN: Soft and nontender with positive bowel sounds. No HSM. EXTREMITIES: No clubbing, cyanosis, or edema. 1+ pulses. NEUROLOGICAL: Nonfocal. Cranial nerves II through XII are intact. PRESENT MEDICATIONS: 1. Lisinopril 40 mg p.o. b.i.d. 2. Lipitor 40 mg a day, fenofibrate 160 a day. 3. Metoprolol-XL 75 mg twice a day. 4. Nifedipine 60 mg twice a day. 5. Clonidine 0.1 mg p.o. b.i.d. 6. Restasis. 7. Prednisolone eye drops to the right eye. 8. Doxycycline 50 mg p.o. daily. 9. Erythromycin ointment to the right eye b.i.d. ALLERGIES: SHE HAS NO REPORTED ALLERGIES TO MEDICINES. PLAN: She is medically stable for the proposed procedure. I will be available if there are any medical issues. MD ELIAS Denson/MODL / [id number]
[2023-05-26 15:35] VITALS: BMI 29.8
--- NOTE | 2023-05-29 11:56 | HO.ANESPROP2 ---
Documented by User: Cece Mercedes NP 05/29/23 11:56 HPI - Anesthesia Eval Consult details Narrative: 88yo F for Left Cataract Extraction IOL Insertion Medically cleared No previous cataract on record PMFSH Active Problems Active Problems: All Active Problems (Updated 05/26/23 @ 15:42 by Tierra Ybarra RN) Carotid stenosis, bilateral (Acute) Past Medical History Medical History Arthritis Back pain Osteopenia Sciatica of left side Anemia Mild heartburn Diverticulosis Chronic renal disease Full dentures Hyperlipemia HTN (hypertension) Family History Family History Father No problems noted. Mother No problems noted. Brother No problems noted. Brother No problems noted. Brother No problems noted. Sister No problems noted. Sister No problems noted. Sister No problems noted. Sister No problems noted. Son No problems noted. Daughter No problems noted. Surgical History Surgical History Hx of tonsillectomy Hx of cornea transplant Hx of right cataract extraction Hx of colonoscopy Hx of cornea transplant Social History Social History Household Members: Other Household Members Other:: son Housing: House Are you a primary hearing healthcare practitioner to a significant other at home: No Do you presently have visiting nurse or other home services: No Comment: aware of trip hazard Patient Tobacco Use Status: Former Tobacco user Quit Date: 1961 Tobacco use type: Cigarette Use of substances other than those prescribed or required for medical reasons: No Have you been hit, kicked, punched, or otherwise hurt by someone within the past year? If so, by whom?: No Are you DNR?: No Advance Directives: No Advance Directives Information Provided: Yes Advance Directives on File: No Recently lost weight without trying: No Nutrition Risks: Surgical patient >75years Meds Allergies Allergy/AdvReac Type Severity Reaction Status Date / Time No Known Allergies Allergy Verified 06/02/23 09:19 [No Known Allergies*] Home Medications Medication Instructions Recorded Confirmed Last Taken Type atorvastatin 40 mg tablet 40 mg PO DAILY 01/02/21 05/26/23 Unknown History clonidine HCl 0.1 mg tablet 0.1 mg PO BID 01/02/21 05/26/23 06/02/23 History cyclosporine 0.05 % eye drops in a 1 drp ophthalmic-Right TID 01/02/21 05/26/23 Unknown History dropperette (Restasis) doxycycline monohydrate 50 mg 50 mg PO DAILY 01/02/21 05/26/23 Unknown History capsule erythromycin 5 mg/gram (0.5 %) eye 0 mg ophthalmic-Right BEDTIME 01/02/21 05/26/23 Unknown History ointment fenofibrate 160 mg tablet 160 mg PO DAILY 01/02/21 05/26/23 Unknown History lisinopril 40 mg tablet 40 mg PO BID 01/02/21 05/26/23 Unknown History metoprolol succinate 50 mg 75 mg PO BID 01/02/21 05/26/23 06/02/23 History tablet,extended release 24 hr nifedipine 60 mg tablet,extended 60 mg PO BID 01/02/21 05/26/23 06/02/23 History release 24 hr prednisolone acetate 1 % eye 1 drp ophthalmic-Right DAILY 01/02/21 05/26/23 Unknown History drops,suspension acetaminophen 500 mg tablet 500 mg PO Q6H PRN Pain 04/18/22 05/26/23 Unknown History (Tylenol Extra Strength) aspirin 81 mg tablet,delayed 81 mg PO DAILY 04/18/22 05/26/23 Unknown History release (Adult Aspirin Regimen) cholecalciferol (vitamin D3) 10 10 mcg PO DAILY 04/18/22 05/26/23 Unknown History mcg (400 unit) capsule kdeeyhrn-foo-kntyq ac 400 1 tab PO DAILY 04/18/22 05/26/23 Unknown History mcg-calcium carb 500 mg-vit K1 20 mcg tablet (Women's 50 Plus Multivitamin) calcium carbonate 600 mg calcium 600 mg PO DAILY 05/26/23 05/26/23 Unknown History (1,500 mg) tablet (Calcium) carboxymethylcellulose sodium 1 % 2 drp ophthalmic (eye) BID PRN Dry 05/26/23 05/26/23 Unknown History eye liquid gel drops Eye(S) famotidine 20 mg tablet (Pepcid AC) 20 mg PO DAILY PRN Heartburn 05/26/23 05/26/23 Unknown History Exam Height,Weight and Vital Signs: Height 5 ft 3 in Weight 76.204 kg Assessment and Plan Assessment Anesthesia Assessment: Chart Reviewed Documented by User: Barbara Arenas MD 06/02/23 10:03 [facility] Active Problems Active Problems: All Active Problems (Updated 06/02/23 @ 09:45 by Barbara Arenas MD) Carotid stenosis, bilateral (Acute)- Asymptomatic. Follows up with Dr Phillips. Last visit 04/2022. Stable Recent cold. No cough. No fever. No malaise. Raspy voice Past Medical History Medical History Arthritis Back pain Osteopenia Sciatica of left side Anemia Mild heartburn Diverticulosis Chronic renal disease Full dentures Hyperlipemia HTN (hypertension) Family History Family History Father No problems noted. Mother No problems noted. Brother No problems noted. Brother No problems noted. Brother No problems noted. Sister No problems noted. Sister No problems noted. Sister No problems noted. Sister No problems noted. Son No problems noted. Daughter No problems noted. Family history of problems with anesthesia: No Surgical History Surgical History Hx of tonsillectomy Hx of cornea transplant Hx of right cataract extraction Hx of colonoscopy Hx of cornea transplant History of Problems with Anesthesia: No Social History Social History Household Members: Other Household Members Other:: son Housing: House Are you a primary hearing healthcare practitioner to a significant other at home: No Do you presently have visiting nurse or other home services: No Comment: aware of trip hazard Patient Tobacco Use Status: Former Tobacco user Quit Date: 1961 Tobacco use type: Cigarette Use of substances other than those prescribed or required for medical reasons: No Have you been hit, kicked, punched, or otherwise hurt by someone within the past year? If so, by whom?: No Are you DNR?: No Advance Directives: No Advance Directives Information Provided: Yes Advance Directives on File: No Recently lost weight without trying: No Nutrition Risks: Surgical patient >75years Meds Allergies Allergy/AdvReac Type Severity Reaction Status Date / Time No Known Allergies Allergy Verified 06/02/23 09:19 [No Known Allergies*] Home Medications Medication Instructions Recorded Confirmed Last Taken Type atorvastatin 40 mg tablet 40 mg PO DAILY 01/02/21 05/26/23 Unknown History clonidine HCl 0.1 mg tablet 0.1 mg PO BID 01/02/21 05/26/23 06/02/23 History cyclosporine 0.05 % eye drops in a 1 drp ophthalmic-Right TID 01/02/21 05/26/23 Unknown History dropperette (Restasis) doxycycline monohydrate 50 mg 50 mg PO DAILY 01/02/21 05/26/23 Unknown History capsule erythromycin 5 mg/gram (0.5 %) eye 0 mg ophthalmic-Right BEDTIME 01/02/21 05/26/23 Unknown History ointment fenofibrate 160 mg tablet 160 mg PO DAILY 01/02/21 05/26/23 Unknown History lisinopril 40 mg tablet 40 mg PO BID 01/02/21 05/26/23 Unknown History metoprolol succinate 50 mg 75 mg PO BID 01/02/21 05/26/23 06/02/23 History tablet,extended release 24 hr nifedipine 60 mg tablet,extended 60 mg PO BID 01/02/21 05/26/23 06/02/23 History release 24 hr prednisolone acetate 1 % eye 1 drp ophthalmic-Right DAILY 01/02/21 05/26/23 Unknown History drops,suspension acetaminophen 500 mg tablet 500 mg PO Q6H PRN Pain 04/18/22 05/26/23 Unknown History (Tylenol Extra Strength) aspirin 81 mg tablet,delayed 81 mg PO DAILY 04/18/22 05/26/23 Unknown History release (Adult Aspirin Regimen) cholecalciferol (vitamin D3) 10 10 mcg PO DAILY 04/18/22 05/26/23 Unknown History mcg (400 unit) capsule qqihogxy-foh-naqkt ac 400 1 tab PO DAILY 04/18/22 05/26/23 Unknown History mcg-calcium carb 500 mg-vit K1 20 mcg tablet (Women's 50 Plus Multivitamin) calcium carbonate 600 mg calcium 600 mg PO DAILY 05/26/23 05/26/23 Unknown History (1,500 mg) tablet (Calcium) carboxymethylcellulose sodium 1 % 2 drp ophthalmic (eye) BID PRN Dry 05/26/23 05/26/23 Unknown History eye liquid gel drops Eye(S) famotidine 20 mg tablet (Pepcid AC) 20 mg PO DAILY PRN Heartburn 05/26/23 05/26/23 Unknown History Exam Height,Weight and Vital Signs: Height 5 ft 3 in Weight 76.204 kg Vital Signs Temp Pulse Resp BP Pulse Ox O2 Del Method 06/02/23 09:18 97.7 F 80 18 143/62 H 97 Room Air Airway Mallampati Class: II TM Dist: >3cm Neck ROM: Full Denture: Upper and Lower Loose/Missing/Broken Teeth: Yes (Dentures) Heart: RRR Lungs: CTAB Assessment and Plan Assessment Anesthesia Assessment: Anesthesia Plan Discussed Final Anesthetic Review Family History of Problems with Anesthesia: No History of Problems with Anesthesia: No NPO: Yes ASA Class: III Final Preanesthetic Review: No Changes in Pt Med Stat, Meds/Allgs Chart Reviewed, Consent Obtained/Reviewed and Anes Risks/Benef Reviewed Patient Risk: Intermediate Procedure Risk: Low Assessment/Block/Sedation in SS: Assess/Block/Sedation-SS Anesthetic Plan Anesthetic Plan: MAC: Disposition: Standard PACU
--- NOTE | 2023-05-30 08:08 | MHC.SHP ---
Pre-Procedural Eval Section A Date of Service: 05/30/23 The patient is an INPATIENT: No Changes since office visit: No Cold of Flu in the past 2 weeks, No New Medical Problems, No Changes in Medication and No Patient answered all questions The History & Physical has been completed within 30 days and I have reviewed it.: Yes Section B Chief Complaint: Age-related nuclear cataract, left eye Allergies: Allergies Allergy/AdvReac Type Severity Reaction Status Date / Time No Known Allergies Allergy Verified 05/26/23 15:32 [No Known Allergies*] Plan Diagnosis/Plan: Unchanged I have reviewed the history and physical and performed a pertinent physical examination on my patient. No changes have occurred unless specified. Time Spent With Patient Time: Total time managing care of this patient today ____ minutes.
[2023-06-02] MEDS: Phenylephrine HCL 2.5% Oph SoL 2 ML BOTTLE 1 DROP EYE-LEFT ×3 (09:06→09:17)
[2023-06-02] MEDS: Ketorolac Tromethamine 0.5% Op 5 ML DROPS 1 DROP EYE-LEFT ×3 (09:06→09:17)
[2023-06-02] MEDS: Lactated Ringers 500 ML 50 ML IV (09:06)
[2023-06-02] MEDS: Tropicamide 1 % Ophth Sol 3 ML BTL 1 DROP EYE-LEFT ×3 (09:06→09:17)
[2023-06-02] MEDS: Cyclopentolate 1 % Ophth Sol 2 ML DRPBTL 1 DROP EYE-LEFT ×3 (09:07→09:18)
[2023-06-02 09:18] VITALS: BP 143/62; PULSE 80; RESP 18; TEMP 36.5; O2SAT 97
[2023-06-02 09:26] VITALS: BMI 30.6
--- NOTE | 2023-06-02 10:15 | MHC.SHP ---
Pre-Procedural Eval Section A Date of Service: 06/02/23 The patient is an INPATIENT: No Changes since office visit: No Cold of Flu in the past 2 weeks, No New Medical Problems, No Changes in Medication and No Patient answered all questions The History & Physical has been completed within 30 days and I have reviewed it.: Yes Section B Chief Complaint: Age-related nuclear cataract, left eye Allergies: Allergies Allergy/AdvReac Type Severity Reaction Status Date / Time No Known Allergies Allergy Verified 06/02/23 09:19 [No Known Allergies*] Plan Diagnosis/Plan: Unchanged I have reviewed the history and physical and performed a pertinent physical examination on my patient. No changes have occurred unless specified. Time Spent With Patient Time: Total time managing care of this patient today ____ minutes.
--- NOTE | 2023-06-02 10:16 | HO.PNOPHT ---
Ophthalmology Procedure Procedure Date of Service: 06/02/23 Ophthalmology Viscoelastic: Healvanessa Duet Dual Pack Pro Ophthalmology Lenses: TECIVAN [id number] (25) Procedure Notes: PREOPERATIVE DIAGNOSIS: Decreased visual acuity left eye secondary to cataract POSTOPERATIVE DIAGNOSIS: Same PROCEDURE: Left cataract extraction with intraocular lens insertion SURGEON: Raúl Madsen M.D. ANESTHESIA: Topical/MAC ESTIMATED BLOOD LOSS: None COMPLICATIONS: None After obtaining informed consent, the patient was brought to the operation room suite and placed in the supine position. After adequate sedation per anesthesia, topical drops of Tetracaine were given to the left eye. The eye was then prepped and draped in the usual sterile fashion. The operating room microscope was then positioned over the operative eye and a lid speculum placed. A paracentesis was created. Viscoelastic was then instilled into the anterior chamber. A three plane incision was then created temporally, utilizing a 2.85 mm keratome. Capsulotomy forceps were then utilized to create a circular tear capsulotomy. Hydrodissection and hydrodelineation were carried out until adequate mobilization of the nucleus occurred. Phacoemulsification was then utilized to remove the dense central nucleus followed by removal of the cortical material utilizing the automated aspiration irrigation unit. Viscoat elastic was instilled into the posterior capsular bag followed by placement of a posterior chamber intraocular lens without difficulty. The residual Viscoat elastic was then removed utilizing the automated IA machine. The wound was check and found to be watertight. The patient tolerated the procedure well and the lid speculum was removed. Intracameral injection of Vigamox 0.1 mL followed by a subtenon injection of Kenalog-40 0.2 mL were administered. The patient will be seen in the a.m.
[2023-06-02 10:41] VITALS: BP 119/58; PULSE 70; RESP 18; TEMP 36.5; O2SAT 97
[2023-06-02 10:46] VITALS: BP 151/59; PULSE 65; RESP 18; TEMP 36.6; O2SAT 97
== END 2023-06-02 10:58 | disposition home or self-care (01) ==
PROVIDERS: PCP Internal Medicine; Visit Provider Ophthalmology
PROC: (CPT 66985; principal; 2023-06-02 09:40)
DX: H25.12 Age-related nuclear cataract, left eye (principal); H52.4 Presbyopia; Z94.7 Corneal transplant status; Z96.1 Presence of intraocular lens; H18.413 Arcus senilis, bilateral; I10 Essential (primary) hypertension; E78.00 Pure hypercholesterolemia, unspecified; J30.9 Allergic rhinitis, unspecified; Z79.82 Long term (current) use of aspirin; Z79.899 Other long term (current) drug therapy; Z87.891 Personal history of nicotine dependence
CPT/HCPCS: 66984; J3301; V2632

== ENCOUNTER 2023-06-25 09:49 | Outpatient (AMB) | payer MEDICARE, OTHER, SELFPAY ==
[2023-06-25 09:52] VITALS: BP 140/60; PULSE 76; O2SAT 96; BMI 29.8
--- NOTE | 2023-06-25 09:52 | HO.NEPHOV_ITS ---
HPI HPI Comments History of Present Illness Details I would the delight of seeing [place] in follow-up for hypertension and mild chronic kidney disease. She had cataract done in the left eye few weeks. 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 She does not have any orthostatic symptoms, chest pain, shortness of breath, paroxysmal nocturnal dyspnea, orthopnea, pedal edema, hematuria or any ongoing active systemic complaints. She is compliant with a low-sodium diet and her medications. She monitors her blood pressure at home and has been at goal. She is known to have vascular disease. She has bilateral carotid artery stenosis which has been of closely followed up as well. [facility] Medical History (Updated 06/25/23 @ 09:[address] MD) Arthritis Back pain Osteopenia Sciatica of left side Anemia Mild heartburn Diverticulosis Chronic renal disease Full dentures Hyperlipemia HTN (hypertension) Surgical History Hx of tonsillectomy Hx of cornea transplant Hx of right cataract extraction Hx of colonoscopy Hx of cornea transplant Family History Father No problems noted. Mother No problems noted. Brother No problems noted. Brother No problems noted. Brother No problems noted. Sister No problems noted. Sister No problems noted. Sister No problems noted. Sister No problems noted. Son No problems noted. Daughter No problems noted. Social History Household Members: Other Household Members Other:: son Housing: House Are you a primary tire care manager to a significant other at home: No Do you presently have visiting nurse or other home services: No Comment: aware of trip hazard Patient Tobacco Use Status: Former Tobacco user Quit Date: 1961 Tobacco use type: Cigarette Vital Signs 06/25/23 09:52 Height 5 ft 3 in Weight 168 lb 6 oz BMI 29.8 BP 140/60 H Blood Pressure Location Lt brachial Position Sitting Pulse 76 Pulse Source Pulse Oximeter Pulse Oximetry (%) 96 Oxygen Delivery Method Room Air Physical Exam Const General: comfortable and no acute distress Orientation/consciousness: patient oriented x3 HEENT Head: Yes normocephalic Mouth: Normal oral and palatal mucosa present Eyes EOM: EOMs intact bilaterally Neck Neck: Yes supple Resp Auscultation: clear to auscultation bilaterally Cardio Jugular venous distension: no JVD Rate: regular rate GI Palpation (GI): Soft to palpation Auscultation: normal bowel sounds General: Yes no CVA tenderness Back/Spine/Pelvis Back: no CVA tenderness Skin General skin exam: no rashes or lesions noted Neuro General: patient oriented x3 and moves all extremities Extrem General: Yes no pedal edema Assessment & Plan Assessment & Plan (1) CKD (chronic kidney disease) stage 2, GFR 60-89 ml/min: Code(s): N18.2 - Chronic kidney disease, stage 2 (mild) (2) HTN (hypertension): Code(s): I10 - Essential (primary) hypertension Qualifiers: Hypertension type: primary hypertension Qualified Code(s): I10 - Essential (primary) hypertension Plan [place] has longstanding hypertension which is fairly well controlled on current medication regimen. She is history of vascular disease. She has bilateral carotid artery stenosis. She checks her blood pressure at home. He has not known to have any proteinuria. Her renal functions are stable. She has no retinopathy, clinical signs of heart failure. She is on statins. Her serum potassium is normal. She does not consume excess sodium diet. She should maintain good hydration and minimize or avoid nonsteroidal anti-inflammatories. Her blood pressure control only became optimal when nifedipine was introduced which she has been tolerating without any side effects. I did not make any medication changes today. Answered all questions. Follow-up appointment given. Orders: Orders Electrolytes Today I10 - Essential (primary) hypertension, N18.2 - Chronic kidney disease, stage 2 (mild) Blood Urea Nitrogen Today I10 - Essential (primary) hypertension, N18.2 - Chronic kidney disease, stage 2 (mild) Creatinine Today I10 - Essential (primary) hypertension, N18.2 - Chronic kidney disease, stage 2 (mild) Calcium Today I10 - Essential (primary) hypertension, N18.2 - Chronic kidney disease, stage 2 (mild) Coding Level of Care Code Est Pt Level 4 (71471) Diagnoses CKD (chronic kidney disease) stage 2, GFR 60-89 ml/min N18.2 Primary hypertension I10 Hypertension type: primary hypertension Results Reviewed Nephrology Results: Hgb 11.6 g/dl (12.0-16.0) L 05/15/23 WBC 5.4 X10*3/uL (4.8-10.8) 05/15/23 Plt Count 257 X10*3/uL (160-400) 05/15/23 Sodium 141 mmol/L (135-145) 05/15/23 Potassium 4.4 mmol/L (3.3-5.1) 05/15/23 Chloride 112 mmol/L (96-108) H 05/15/23 Carbon Dioxide 20 mmol/L (22-29) L 05/15/23 BUN 24 mg/dL (9-16) H 05/15/23 Creatinine 1.01 mg/dL (0.5-1.4) 05/15/23 Calcium 9.9 mg/dL (8.4-10.2) 05/15/23 Urine Protein Negative mg/dL (Neg-Trace) 05/15/23
== END 2023-06-25 10:19 | disposition home or self-care (01) ==
PROVIDERS: PCP Internal Medicine; Visit Provider Internal Medicine Nephrology
DX: I12.9 Hypertensive chronic kidney disease with stage 1 through stage 4 chronic kidney disease, or unspecified chronic kidney disease (principal); N18.2 Chronic kidney disease, stage 2 (mild)
CPT/HCPCS: 99214

== ENCOUNTER → 2023-06-25 09:49 | Outpatient (BNVA) | payer MEDICARE, OTHER, SELFPAY | PROVIDERS: PCP Internal Medicine; Visit Provider Internal Medicine Nephrology | DX: I12.9 Hypertensive chronic kidney disease with stage 1 through stage 4 chronic kidney disease, or unspecified chronic kidney disease (principal); N18.2 Chronic kidney disease, stage 2 (mild) | CPT/HCPCS: 99212 ==

== ENCOUNTER 2023-10-29 09:25 | Outpatient (AMB) | payer MEDICARE, OTHER, SELFPAY ==
[2023-10-29 09:52] VITALS: BP 140/60; PULSE 80; O2SAT 98; BMI 30.3
--- NOTE | 2023-10-29 09:52 | HO.NEPHOV ---
Vital Signs 10/29/23 09:52 Height 5 ft 3 in Weight 171 lb 2 oz BMI 30.3 BP 140/60 H Blood Pressure Location Rt brachial Position Sitting Pulse 80 Pulse Source Pulse Oximeter Pulse Oximetry (%) 98 Oxygen Delivery Method Room Air Intake Visit Reasons: 4 Months FU/ LVM Process Cheese Cooker Required: No Accompanied by: Self / Same As Patient Allergies No Known Allergies [No Known Allergies*] Allergy (Verified 10/29/23 09:54) HPI Comments Details: I would the delight of seeing [place] in follow-up for hypertension and mild chronic kidney disease. She had cataract done in the left eye . 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 She does not have any orthostatic symptoms, chest pain, shortness of breath, paroxysmal nocturnal dyspnea, orthopnea, pedal edema, hematuria or any ongoing active systemic complaints. She is compliant with a low-sodium diet and her medications. She monitors her blood pressure at home and has been at goal. She is known to have vascular disease. She has bilateral carotid artery stenosis which has been of closely followed up as well. [facility] Medical History (Updated 06/25/23 @ 09:[address] Wil[address] MD) Arthritis Back pain Osteopenia Sciatica of left side Anemia Mild heartburn Diverticulosis Chronic renal disease Full dentures Hyperlipemia HTN (hypertension) Surgical History Hx of tonsillectomy Hx of cornea transplant Hx of right cataract extraction Hx of colonoscopy Hx of cornea transplant Family History Father No problems noted. Mother No problems noted. Brother No problems noted. Brother No problems noted. Brother No problems noted. Sister No problems noted. Sister No problems noted. Sister No problems noted. Sister No problems noted. Son No problems noted. Daughter No problems noted. Social History Household Members: Other Household Members Other:: son Housing: House Are you a primary health care recruiter to a significant other at home: No Do you presently have visiting nurse or other home services: No Comment: aware of trip hazard Patient Tobacco Use Status: Former Tobacco user Tobacco use type: Cigarette Physical Exam Const General: comfortable and no acute distress Orientation/consciousness: patient oriented x3 HEENT Head: Yes normocephalic Mouth: Normal oral and palatal mucosa present Eyes EOM: EOMs intact bilaterally Neck Neck: Yes supple Resp Auscultation: clear to auscultation bilaterally Cardio Jugular venous distension: no JVD Rate: regular rate GI Palpation (GI): Soft to palpation Auscultation: normal bowel sounds General: Yes no CVA tenderness Back/Spine/Pelvis Back: no CVA tenderness Skin General skin exam: no rashes or lesions noted Neuro General: patient oriented x3 and moves all extremities Extrem General: Yes no pedal edema Results Reviewed Nephrology Results: Hgb 11.6 g/dl (12.0-16.0) L 05/15/23 WBC 5.4 X10*3/uL (4.8-10.8) 05/15/23 Plt Count 257 X10*3/uL (160-400) 05/15/23 Sodium 141 mmol/L (135-145) 05/15/23 Potassium 4.4 mmol/L (3.3-5.1) 05/15/23 Chloride 112 mmol/L (96-108) H 05/15/23 Carbon Dioxide 20 mmol/L (22-29) L 05/15/23 BUN 24 mg/dL (9-16) H 05/15/23 Creatinine 1.01 mg/dL (0.5-1.4) 05/15/23 Calcium 9.9 mg/dL (8.4-10.2) 05/15/23 Urine Protein Negative mg/dL (Neg-Trace) 05/15/23 Assessment & Plan Assessment & Plan (1) CKD (chronic kidney disease) stage 2, GFR 60-89 ml/min: Code(s): N18.2 - Chronic kidney disease, stage 2 (mild) Category: Medical (2) HTN (hypertension): Code(s): I10 - Essential (primary) hypertension Category: Medical Qualifiers: Hypertension type: primary hypertension Qualified Code(s): I10 - Essential (primary) hypertension Plan [place] has longstanding hypertension which is fairly well controlled on current medication regimen. She is history of vascular disease. She has bilateral carotid artery stenosis. She checks her blood pressure at home. He has not known to have any proteinuria. Her renal functions are stable. She has no retinopathy, clinical signs of heart failure. She is on statins. Her serum potassium is normal. She does not consume excess sodium diet. She should maintain good hydration and minimize or avoid nonsteroidal anti-inflammatories. Her blood pressure control only became optimal when nifedipine was introduced which she has been tolerating without any side effects. I did not make any medication changes today. Answered all questions. Follow-up appointment given. Orders: Orders Complete Blood Count Auto Diff Today I10 - Essential (primary) hypertension, N18.2 - Chronic kidney disease, stage 2 (mild) Creatinine Today I10 - Essential (primary) hypertension, N18.2 - Chronic kidney disease, stage 2 (mild) Blood Urea Nitrogen Today I10 - Essential (primary) hypertension, N18.2 - Chronic kidney disease, stage 2 (mild) Electrolytes Today I10 - Essential (primary) hypertension, N18.2 - Chronic kidney disease, stage 2 (mild) Calcium Today I10 - Essential (primary) hypertension, N18.2 - Chronic kidney disease, stage 2 (mild) TSH reflex Free T4 Today I10 - Essential (primary) hypertension, N18.2 - Chronic kidney disease, stage 2 (mild) Coding Level of Care Code Est Pt Level 4 (30741) Diagnoses CKD (chronic kidney disease) stage 2, GFR 60-89 ml/min N18.2 Primary hypertension I10 Hypertension type: primary hypertension
== END 2023-10-29 10:16 | disposition home or self-care (01) ==
PROVIDERS: PCP Internal Medicine; Visit Provider Internal Medicine Nephrology
DX: I12.9 Hypertensive chronic kidney disease with stage 1 through stage 4 chronic kidney disease, or unspecified chronic kidney disease (principal); N18.2 Chronic kidney disease, stage 2 (mild)
CPT/HCPCS: 99214

== ENCOUNTER 2023-10-29 10:21 | Outpatient (REF) | payer MEDICARE, OTHER, SELFPAY ==
[2023-10-29 11:37] LABS: MANUAL DIFF FLAG NO
[2023-10-29 11:42] LABS: Basophils Percent Auto 0.6 % (0-2); Eosinophils Absolute Auto 0.1 X10*3/uL (0.0-0.4); Eosinophils Percent Auto 1.7 % (0-4); Hematocrit 37.7 % (37.0-47.0); Hemoglobin 11.8 g/dl (12.0-16.0); Imm Gran Abs Auto 0.03 X10*3/uL (0.00-0.03); Imm Gran Pct Auto 0.4 % (0.0-0.4); Lymphocytes Absolute Auto 1.5 X10*3/uL (1.2-4.9); Lymphocytes Percent Auto 20.7 % (20-40); Mean Corpuscular HGB Conc 31.3 g/dl (31.0-35.0); Mean Platelet Volume 11.4 fL (9.4-12.3); Monocytes Absolute Auto 0.7 X10*3/uL (0.1-1.2); Monocytes Percent Auto 9.5 % (2-11); Neutrophils Absolute Auto 4.7 x10*3/uL (2.0-8.3); Neutrophils Percent Auto 67.1 % (45-73); Platelet Count 294 X10*3/uL (160-400); Red Blood Count 3.81 X10*6/uL (4.20-5.50); Red Cell Distribution Width 12.6 % (11.0-16.0)
[2023-10-29 12:04] LABS: Anion Gap 13 (12-20); Blood Urea Nitrogen 42 mg/dL (9-16); Calcium 9.8 mg/dL (8.4-10.2); Carbon Dioxide 21 mmol/L (22-29); Chloride 114 mmol/L (96-108); Estimated Glomerular Filt Rate 33; Sodium 143 mmol/L (135-145)
== END 2023-10-29 10:22 | disposition home or self-care (01) ==
LOC: HO.10HDL 10:21
PROVIDERS: Visit Provider Internal Medicine Nephrology
DX: I12.9 Hypertensive chronic kidney disease with stage 1 through stage 4 chronic kidney disease, or unspecified chronic kidney disease (principal); N18.2 Chronic kidney disease, stage 2 (mild)
CPT/HCPCS: 36415; 80051; 82310; 82565; 84443; 84520; 85025; 99212

== ENCOUNTER 2023-11-19 11:12 | Outpatient (REF) | payer MEDICARE, OTHER, SELFPAY ==
--- NOTE | ~2023-11-19 | MM_ITS ---
EXAMINATION: MM DIAGNOSTIC DIGITAL MAMMOGRAPHY, RIGHT CLINICAL INFORMATION: Follow-up right breast calcifications 12:00 axis. COMPARISON: Mammography: 05/13/2023, 10/18/2022, 04/15/2022, 06/03/2021 (BI-RADS 0), 03/28/2021, 03/11/2019. TECHNIQUE: Digital mammography is performed in the following views: 2-D spot magnification views right ML and right CC x2. FINDINGS: There are scattered areas of fibroglandular density (ACR BI-RADS breast composition Category b). Loosely grouped, round calcifications for short interval follow-up right breast 12:00 axis may be skin calcifications, are completely unchanged in both number and morphology. These are clearly benign and no further follow-up recommended. MM/MM diagnostic mammo unilat RT IMPRESSION: Stable benign calcifications 12:00 axis right breast. No further follow-up recommended. Recommend the patient return to routine annual screening. ASSESSMENT: BI-RADS BI-RADS 2 - Benign Findings RECOMMENDATION: 1 year F/U This patient's information was entered into a reminder system with a target due date for their next mammogram.
== END 2023-11-19 11:13 | disposition home or self-care (01) ==
LOC: HO.MAMMO 11:12
PROVIDERS: PCP Internal Medicine; Visit Provider Internal Medicine
DX: R92.1 Mammographic calcification found on diagnostic imaging of breast (principal)
CPT/HCPCS: 77062; 77065

== ENCOUNTER → 2023-11-19 11:30 | Outpatient (BNV) | payer MEDICARE, OTHER, SELFPAY | PROVIDERS: PCP Internal Medicine; Visit Provider Radiology Diagnostic Radiology | DX: R92.1 Mammographic calcification found on diagnostic imaging of breast (principal) | CPT/HCPCS: 77065 ==

== ENCOUNTER 2023-12-16 08:39 | Outpatient (REF) | payer MEDICARE, OTHER, SELFPAY ==
[2023-12-16 11:25] LABS: Anion Gap 17 (12-20); Blood Urea Nitrogen 39 mg/dL (9-16); Carbon Dioxide 20 mmol/L (22-29); Chloride 109 mmol/L (96-108); Estimated Glomerular Filt Rate 36; Potassium 4.6 mmol/L (3.3-5.1); Sodium 141 mmol/L (135-145)
== END 2023-12-16 08:40 | disposition home or self-care (01) ==
LOC: HO.10HDL 08:39
PROVIDERS: Visit Provider Internal Medicine Nephrology
DX: I12.9 Hypertensive chronic kidney disease with stage 1 through stage 4 chronic kidney disease, or unspecified chronic kidney disease (principal); N18.2 Chronic kidney disease, stage 2 (mild)
CPT/HCPCS: 36415; 80051; 82565; 84520

== ENCOUNTER 2024-02-25 10:50 | Outpatient (AMB) | payer MEDICARE, OTHER, SELFPAY ==
--- NOTE | 2024-02-25 10:58 | HO.NEPHOV ---
Vital Signs 02/25/24 11:00 Height 5 ft 3 in Weight 168 lb BMI 29.8 BP 140/66 H Blood Pressure Location Rt brachial Position Sitting Pulse 81 Pulse Source Pulse Oximeter Pulse Oximetry (%) 96 Oxygen Delivery Method Room Air Intake Visit Reasons: CKD/ Conf Recreation Facility Manager Required: No Accompanied by: Self / Same As Patient Allergies No Known Allergies [No Known Allergies*] Allergy (Verified 02/25/24 11:00) HPI Comments Details: I would the delight of seeing [place] in follow-up for hypertension and mild chronic kidney disease. She had cataract done in the left eye . 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 She does not have any orthostatic symptoms, chest pain, shortness of breath, paroxysmal nocturnal dyspnea, orthopnea, pedal edema, hematuria or any ongoing active systemic complaints. She is compliant with a low-sodium diet and her medications. She monitors her blood pressure at home and has been at goal. She is known to have vascular disease. She has bilateral carotid artery stenosis which has been of closely followed up as well. [facility] Medical History (Updated 06/25/23 @ 09:[address] Wilburn MD) Arthritis Back pain Osteopenia Sciatica of left side Anemia Mild heartburn Diverticulosis Chronic renal disease Full dentures Hyperlipemia HTN (hypertension) Surgical History Hx of tonsillectomy Hx of cornea transplant Hx of right cataract extraction Hx of colonoscopy Hx of cornea transplant Family History Father No problems noted. Mother No problems noted. Brother No problems noted. Brother No problems noted. Brother No problems noted. Sister No problems noted. Sister No problems noted. Sister No problems noted. Sister No problems noted. Son No problems noted. Daughter No problems noted. Social History Household Members: Other Household Members Other:: son Housing: House Are you a primary career and transition teacher to a significant other at home: No Do you presently have visiting nurse or other home services: No Comment: aware of trip hazard Patient Tobacco Use Status: Former Tobacco user Tobacco use type: Cigarette Review of Systems Const All systems reviewed & are unremarkable except as noted in HPI and below Physical Exam Vital Signs: Last Vital Signs Pulse 81 02/25/24 11:00 BP 160/66 H 02/25/24 11:00 Pulse Ox 96 02/25/24 11:00 Oxygen Delivery Method Room Air 02/25/24 11:00 BMI result Body Mass Index 29.8 Const General: comfortable and no acute distress Orientation/consciousness: patient oriented x3 HEENT Head: Yes normocephalic Mouth: Normal oral and palatal mucosa present Eyes EOM: EOMs intact bilaterally Neck Neck: Yes supple Resp Auscultation: clear to auscultation bilaterally Cardio Jugular venous distension: no JVD Rate: regular rate GI Palpation (GI): Soft to palpation Auscultation: normal bowel sounds General: Yes no CVA tenderness Back/Spine/Pelvis Back: no CVA tenderness Skin General skin exam: no rashes or lesions noted Neuro General: patient oriented x3 and moves all extremities Extrem General: Yes no pedal edema Results Reviewed Nephrology Results: Hgb 11.8 g/dl (12.0-16.0) L 10/29/23 WBC 7.0 X10*3/uL (4.8-10.8) 10/29/23 Plt Count 294 X10*3/uL (160-400) 10/29/23 Sodium 141 mmol/L (135-145) 12/16/23 Potassium 4.6 mmol/L (3.3-5.1) 12/16/23 Chloride 109 mmol/L (96-108) H 12/16/23 Carbon Dioxide 20 mmol/L (22-29) L 12/16/23 BUN 39 mg/dL (9-16) H 12/16/23 Creatinine 1.40 mg/dL (0.5-1.4) 12/16/23 Calcium 9.8 mg/dL (8.4-10.2) 10/29/23 Urine Protein Negative mg/dL (Neg-Trace) 05/15/23 Assessment & Plan Assessment & Plan (1) CKD (chronic kidney disease) stage 2, GFR 60-89 ml/min: Code(s): N18.2 - Chronic kidney disease, stage 2 (mild) Category: Medical (2) HTN (hypertension): Code(s): I10 - Essential (primary) hypertension Category: Medical Qualifiers: Hypertension type: primary hypertension Qualified Code(s): I10 - Essential (primary) hypertension Plan [place] has longstanding hypertension which is fairly well controlled on current medication regimen. She is history of vascular disease. She has bilateral carotid artery stenosis. She checks her blood pressure at home. He has not known to have any proteinuria. Her renal functions are stable. She has no retinopathy, clinical signs of heart failure. She is on statins. Her serum potassium is normal. She does not consume excess sodium diet. She should maintain good hydration and minimize or avoid nonsteroidal anti-inflammatories. Her blood pressure control only became optimal when nifedipine was introduced which she has been tolerating without any side effects. I did not make any medication changes today. Answered all questions. Follow-up appointment given Orders: Orders Blood Urea Nitrogen 6 Months I10 - Essential (primary) hypertension, N18.2 - Chronic kidney disease, stage 2 (mild) Electrolytes 6 Months I10 - Essential (primary) hypertension, N18.2 - Chronic kidney disease, stage 2 (mild) Creatinine 6 Months I10 - Essential (primary) hypertension, N18.2 - Chronic kidney disease, stage 2 (mild) Coding Level of Care Code Est Pt Level 4 (78035) Diagnoses CKD (chronic kidney disease) stage 2, GFR 60-89 ml/min N18.2 Primary hypertension I10 Hypertension type: primary hypertension
[2024-02-25 11:00] VITALS: BP 140/66; PULSE 81; O2SAT 96; BMI 29.8
== END 2024-02-25 11:20 | disposition home or self-care (01) ==
PROVIDERS: PCP Internal Medicine; Visit Provider Internal Medicine Nephrology
DX: I12.9 Hypertensive chronic kidney disease with stage 1 through stage 4 chronic kidney disease, or unspecified chronic kidney disease (principal); N18.2 Chronic kidney disease, stage 2 (mild)
CPT/HCPCS: 99214

== ENCOUNTER → 2024-02-25 10:50 | Outpatient (BNVA) | payer MEDICARE, OTHER, SELFPAY | PROVIDERS: PCP Internal Medicine; Visit Provider Internal Medicine Nephrology | DX: I12.9 Hypertensive chronic kidney disease with stage 1 through stage 4 chronic kidney disease, or unspecified chronic kidney disease (principal); N18.2 Chronic kidney disease, stage 2 (mild) | CPT/HCPCS: 99212 ==

== ENCOUNTER 2024-03-17 08:14 | Outpatient (REF) | payer MEDICARE, OTHER, SELFPAY ==
[2024-03-17 11:10] LABS: MANUAL DIFF FLAG NO
[2024-03-17 11:21] LABS: Basophils Percent Auto 0.8 % (0-2); Eosinophils Absolute Auto 0.2 X10*3/uL (0.0-0.4); Eosinophils Percent Auto 3.6 % (0-4); Imm Gran Abs Auto 0.02 X10*3/uL (0.00-0.03); Imm Gran Pct Auto 0.4 % (0.0-0.4); Lymphocytes Absolute Auto 1.5 X10*3/uL (1.2-4.9); Lymphocytes Percent Auto 27.6 % (20-40); Mean Corpuscular HGB Conc 32.4 g/dl (31.0-35.0); Mean Corpuscular Hemoglobin 31.5 pg (27.0-33.0); Mean Corpuscular Volume 97.4 fL (80.0-98.0); Mean Platelet Volume 11.7 fL (9.4-12.3); Monocytes Absolute Auto 0.7 X10*3/uL (0.1-1.2); Monocytes Percent Auto 12.8 % (2-11); Neutrophils Absolute Auto 2.9 x10*3/uL (2.0-8.3); Neutrophils Percent Auto 54.8 % (45-73); Platelet Count 246 X10*3/uL (160-400); Red Blood Count 3.49 X10*6/uL (4.20-5.50); Red Cell Distribution Width 12.5 % (11.0-16.0); White Blood Count 5.3 X10*3/uL (4.8-10.8)
[2024-03-17 12:39] LABS: Alanine Aminotransferase 17 U/L (0-31); Alkaline Phosphatase 47 U/L (39-117); Anion Gap 15 (12-20); Aspartate Amino Transferase 27 U/L (5-31); Bilirubin Total 0.4 mg/dL (0.0-1.0); Blood Urea Nitrogen 27 mg/dL (9-16); Carbon Dioxide 20 mmol/L (22-29); Chloride 114 mmol/L (96-108); Cholesterol 156 mg/dL (<200); Estimated Glomerular Filt Rate 46; Glucose Fasting 99 mg/dL (60-99); HDL Cholesterol 51 mg/dL (>40); LDL Cholesterol Calculated 63 mg/dL (<100); Potassium 4.7 mmol/L (3.3-5.1); Sodium 144 mmol/L (135-145); Total Protein 7.2 g/dL (6.5-8.0); Triglycerides 212 mg/dL (<150); Vitamin D 25-OH Total 46.1 ng/mL (>30)
== END 2024-03-17 08:15 | disposition home or self-care (01) ==
LOC: HO.10HDL 08:14
PROVIDERS: Visit Provider Internal Medicine
DX: I12.9 Hypertensive chronic kidney disease with stage 1 through stage 4 chronic kidney disease, or unspecified chronic kidney disease (principal); N18.9 Chronic kidney disease, unspecified; E78.00 Pure hypercholesterolemia, unspecified; D64.9 Anemia, unspecified; M81.0 Age-related osteoporosis without current pathological fracture
CPT/HCPCS: 36415; 80053; 80061; 82306; 85025

== ENCOUNTER 2024-06-21 08:08 | Outpatient (REF) | payer MEDICARE, OTHER, SELFPAY ==
--- NOTE | ~2024-06-21 | MM_ITS ---
EXAMINATION: MM DIAGNOSTIC DIGITAL BREAST TOMOSYNTHESIS, BILATERAL CLINICAL INFORMATION: Two-year follow-up for right breast calcifications. COMPARISON: Mammography: Comparison is made with relevant prior exams. TECHNIQUE: Digital breast mammography with tomosynthesis is performed in both the craniocaudal and mediolateral oblique views along with computer-aided detection (CAD). FINDINGS: There are scattered areas of fibroglandular density (ACR BI-RADS breast composition Category b). Grouped round calcifications in the upper outer right breast are not significantly changed on magnification views for 2 years and therefore benign. There are no significant masses, abnormal calcifications, or other abnormalities. Results are provided to the patient at time of visit by the technologist. MM/MM tomosynthesis diagnostic BI IMPRESSION: No mammographic evidence of malignancy. Grouped right breast calcifications stable for 2 years on magnification views. Benign. ASSESSMENT: BI-RADS BI-RADS 2 - Benign Findings RECOMMENDATION: 1 year F/U This patient's information was entered into a reminder system with a target due date for their next mammogram. Electronically signed by: Dana Oconnor DO 06/21/2024 08:59 AM JOSSUE
== END 2024-06-21 08:09 | disposition home or self-care (01) ==
LOC: HO.MAMMO 08:08
PROVIDERS: PCP Internal Medicine; Visit Provider Internal Medicine
DX: R92.1 Mammographic calcification found on diagnostic imaging of breast (principal)
CPT/HCPCS: 77062; 77066

== ENCOUNTER → 2024-06-21 08:30 | Outpatient (BNV) | payer MEDICARE, OTHER, SELFPAY | PROVIDERS: PCP Internal Medicine; Visit Provider Internal Medicine | DX: R92.1 Mammographic calcification found on diagnostic imaging of breast (principal) | CPT/HCPCS: 77066; G0279 ==

== ENCOUNTER 2024-08-16 07:51 | Outpatient (REF) | payer MEDICARE, OTHER, SELFPAY ==
--- OUTSIDE RECORDS SUMMARY | 2024-08-16 07:54 | XMS_ITS | Clinical Summary ---
Author Organization [facility] Address [address] [place] [address] Phone Care Team Providers Care Tile Installer Name Role Phone Torrey Rodriguez MD Primary Care Provider [phone] Allergies No known active allergies Medications acetaminophen (TYLENOL) 500 MG tablet Take 2 tablets by mouth every morning Active atorvastatin (LIPITOR) 40 MG tablet Take 1 tablet by mouth 1 (one) time each day Active cycloSPORINE (Restasis) 0.05 % ophthalmic emulsion Active doxycycline (ADOXA) 50 MG tablet Take 1 tablet by mouth 1 (one) time each day Active fenofibrate (TRIGLIDE) 160 MG tablet Take 1 tablet by mouth 1 (one) time each day Active lisinopril (PRINIVIL,ZESTR IL) 40 MG tablet Take 1 tablet by mouth 2 (two) times a day Active Multiple Vitamin (MULTIVITAMIN ADULT PO) Take 1 capsule by mouth 1 (one) time each day Active Soft Lens Products (Refresh Contacts Drops) solution Active cholecalciferol (VITAMIN D-3) 25 MCG (1000 UT) tablet Take 1 tablet by mouth 1 (one) time each day Active Calcium Carb-Cholecalci ferol (Calcium 600+D) 600-800 MG-UNIT tablet Take 1.5 tablets by mouth 1 (one) time each day Active erythromycin (ROMYCIN) ophthalmic ointment PLACE 1/2 INCH RIBBON INTO THE RIGHT EYE NIGHTLY AT BEDTIME. 05/14/2020 Active aspirin (ST [place]) 81 MG EC tablet Take 81 mg by mouth 1 (one) time each day Active prednisoLONE acetate (PRED FORTE) 1 % ophthalmic suspension PLACE 1 DROP INTO THE RIGHT EYE DAILY. 10/03/2020 Active metoprolol succinate XL (TOPROL XL) 50 MG 24 hr tablet Take 1.5 tablets (75 mg total) by mouth in the morning and 1.5 tablets (75 mg total) in the evening. Do not crush or chew.. 270 tablet 3 06/24/2022 Active cloNIDine (CATAPRES) 0.1 MG tablet TAKE 1 TABLET BY MOUTH TWICE A DAY 180 tablet 4 10/01/2023 Active NIFEdipine XL (PROCARDIA XL) 60 MG 24 hr tablet TAKE 2 TABLETS BY MOUTH EVERY DAY 180 tablet 3 10/01/2023 Active Active Problems Problem Noted Date Diagnosed Date Hypertension 01/26/2021 Anemia 06/30/2020 Stage 3a chronic kidney disease 06/30/2020 Hypertensive renal disease 06/30/2020 Hypercholesterolemia 08/30/2014 Overview (06/30/2020): Hypercholesterolemia Hypertensive disorder 03/24/2012 Overview (09/28/2020): Hypertensive disorder Immunizations Name Administration Dates Next Due Pneumococcal Polysaccharide 07/10/2012 Family History Medical History Relation Comments Diabetes Child Diabetes Father Hypertension Father Stroke Father Diabetes Sibling 1 Cancer Sibling 2 Relation Status Comments Child Father Mother Sibling 1 Sibling 2 Social History Tobacco Use Types Packs/Day Years Used Date Smoking Tobacco: Never Smokeless Tobacco: Never Tobacco Cessation:Counseling Given: Not Answered Alcohol Use Standard Drinks/Week Comments No 0 (1 standard drink = 0.6 oz pur e alcohol) Comments Unknown Sex and Gender Information Value Date Recorded Sex Assigned at Not on file Legal Sex Female 5:09 PM EST Gender Identity Not on file Sexual Orientation Not on file Last Filed Vital Signs Vital Sign Reading Time Taken Comments Blood Pressure 140/70 01/29/2023 1:40 PM EDT Pulse 68 01/29/2023 1:40 PM EDT Temperature - - Respiratory Rate - - Oxygen Saturation 96% 01/26/2021 1:30 PM EDT Inhaled Oxygen Concentration - - Weight 77.3 kg (170 lb 6.4 oz) 01/29/2023 1:40 P M EDT Height 160 cm (5' 3 ) 08/25/2019 12:00 PM EDT Body Mass Index 30.19 08/25/2019 12:00 PM EDT Plan of Treatment Health Maintenance Due Date Last Done Comments Pneumococcal Vaccine: 65+ Ye ars (2 of 2 - PCV) 07/10/2013 07/10/2012 Influenza Vaccine (Season Ended) 2025 Hepatitis B Vaccine Aged Out No longe r eligible based on patient's age to complete this topic [place] [address] [employer] [address] MEDICARE [facility] MEDICARE [place] [id number] Care Teams Tile Installer Relationship Specialty Start Date End Date Torrey Rodriguez MD [address] [place] [address] [id number] [place] PCP - General 05/22/20
[2024-08-16 11:16] LABS: Anion Gap 14 (12-20); Blood Urea Nitrogen 31 mg/dL (9-16); Carbon Dioxide 20 mmol/L (22-29); Chloride 114 mmol/L (96-108); Estimated Glomerular Filt Rate 40; Potassium 4.5 mmol/L (3.3-5.1); Sodium 143 mmol/L (135-145)
== END 2024-08-16 07:52 | disposition home or self-care (01) ==
LOC: HO.10HDL 07:51
PROVIDERS: Visit Provider Internal Medicine Nephrology
DX: I12.9 Hypertensive chronic kidney disease with stage 1 through stage 4 chronic kidney disease, or unspecified chronic kidney disease (principal); N18.2 Chronic kidney disease, stage 2 (mild)
CPT/HCPCS: 36415; 80051; 82565; 84520

== ENCOUNTER 2024-08-17 11:28 | Outpatient (REF) | payer MEDICARE, OTHER, SELFPAY ==
[2024-08-17 13:35] LABS: Hematocrit 31.2 % (37.0-47.0)
--- OUTSIDE RECORDS SUMMARY | 2024-08-17 14:36 | XMS_ITS | Clinical Summary ---
Author Organization [facility] Address [address] [place] [address] Phone Care Team Providers Care Metal Tank Erector Name Role Phone Torrey Rodriguez MD Primary Care Provider [phone] Allergies No known active allergies Medications acetaminophen [...] patient's age to complete this topic [place] [address] [address] [facility] MEDICARE [place] [id number] Care Teams Metal Tank Erector Relationship Specialty Start Date End Date Torrey Rodriguez MD [address] [place] [address] [id number] [place] PCP - General 05/22/20
== END 2024-08-17 11:29 | disposition home or self-care (01) ==
LOC: HO.HMGCLDS 11:28
PROVIDERS: PCP Internal Medicine; Visit Provider Physician Assistant
DX: K92.1 Melena (principal)
CPT/HCPCS: 36415; 85014; 85018; 99212

== ENCOUNTER 2024-08-17 11:28 | Outpatient (AMB) | payer MEDICARE, OTHER, SELFPAY ==
--- NOTE | 2024-08-17 11:30 | AM.OFFWIN_ITS ---
Intake Vital Signs 08/17/24 11:33 Weight 165 lb BP 130/74 Blood Pressure Location Rt brachial Position Sitting Pulse 78 Pulse Source Pulse Oximeter Pulse Oximetry (%) 98 Oxygen Delivery Method Room Air Intake Visit Reasons: EP-?bloody stool Intake Note: Patient here for bloody stool that started friday. Patient Tobacco Use Status: Former Tobacco user Allergies No Known Allergies [No Known Allergies*] Allergy (Verified 08/17/24 11:34) Do you need a note to return to daycare/school/sports/work: No HPI HPI Comments History of Present Illness Details This is an 89-year-old female with a past medical history of hypertension, hyperlipidemia and chronic kidney disease presenting for evaluation of bright red blood in her stool that she noticed on Friday afternoon. Patient states her bowel movement was painless but there was bright red blood in the bowl thereafter. Patient states that she has had 2 bowel movements since that time which she describes as dark in color. Patient denies taking any new medications but has been drinking prune juice for management of constipation. Patient denies having any fevers, chills, abdominal pain, dysuria, urinary frequency or hematuria. Her most recent colonoscopy was at approximately 72 years of age by her estimation. Overall, patient states that she feels well and denies having any fatigue, chest pain, shortness for breath or general malaise. [facility] Medical History (Updated 08/17/24 @ 12:07 by Skylar Case PA-C) Bloody stool Arthritis Back pain Osteopenia Sciatica of left side Anemia Mild heartburn Diverticulosis Chronic renal disease Full dentures Hyperlipemia HTN (hypertension) Surgical History Hx of tonsillectomy Hx of cornea transplant Hx of right cataract extraction Hx of colonoscopy Hx of cornea transplant Family History Father No problems noted. Mother No problems noted. Brother No problems noted. Brother No problems noted. Brother No problems noted. Sister No problems noted. Sister No problems noted. Sister No problems noted. Sister No problems noted. Son No problems noted. Daughter No problems noted. Social History Household Members: Other Household Members Other:: son Housing: House Are you a primary careers adviser to a significant other at home: No Do you presently have visiting nurse or other home services: No Comment: aware of trip hazard Patient Tobacco Use Status: Former Tobacco user Tobacco use type: Cigarette Review of Systems Const All systems reviewed & are unremarkable except as noted in HPI and below Reports weakness Eyes Reports no additional complaints ENT Reports no additional complaints Card Reports no additional complaints Resp Reports no additional complaints GI Reports no additional complaints, Denies abdominal pain, Denies belching, Reports melena (x 2), Reports hematochezia (x1), Denies coffee ground emesis, Denies GI cramping, Denies excessive flatus and Denies hematemesis Reports no additional complaints Musc Reports no additional complaints Skin/Breast Reports system reviewed and no additional complaints, except as documented Neuro Reports no additional complaints and Reports weakness Psych Reports no additional complaints Endo Reports no additional complaints Agus/Lymph Reports no additional complaints Aller/Immun Reports no additional complaints Physical Exam Const General: cooperative, healthy appearing, comfortable, no acute distress, well developed, alert, awake and Physically active; No ill appearing or tired appearing Nutritional Appearance: well nourished Orientation/consciousness: patient oriented x3 Limitations: no limitations Resp Effort & Inspection: normal respiratory effort and able to speak in complete sentences Auscultation: clear to auscultation bilaterally Cardio Rate: regular rate Rhythm: regular rhythm GI Inspection: Yes normal to inspection, No abdominal wall ecchymosis and No distended Palpation (GI): Soft to palpation, nontender and no guarding Auscultation: normal bowel sounds Rectal Exam - Female: deferred Neuro General: patient oriented x3 Psych Appearance: grossly normal Mental Status: mental status grossly normal Insight: Good insight present (Psych) Judgement: Good judgement present (Psych) Assessment & Plan Assessment & Plan (1) Bloody stool: Comment: Patient is well appearing and has no abdominal pain on examination. Given that his patient's PCP has recently retired and she does not meet her new primary care physician until September 2024, a hemoglobin and hematocrit will be obtained to rule out an occult anemia. Code(s): K92.1 - Melena Plan: Laboratories are ordered and results are pending. Patient is aware that if her H and H is critically low, she will receive a call telling her to go to the emergency department. Patient consents to this plan of care. Orders: Orders Hemoglobin Today K92.1 - Melena Hematocrit Today K92.1 - Melena Coding Level of Care Code Est Pt Level 3 (03489) Diagnoses Bloody stool K92.1 Time Spent (min) 20
[2024-08-17 11:33] VITALS: BP 130/74; PULSE 78; O2SAT 98
--- OUTSIDE RECORDS SUMMARY | 2024-08-17 14:03 | XMS_ITS | Clinical Summary ---
Author Organization [facility] Address [address] [place] [address] Phone Care Team Providers Care Resident Physician In Radiology Name Role Phone Torrey Rodriguez MD Primary Care Provider [phone] Allergies No known active allergies Medications acetaminophen [...] patient's age to complete this topic Insurance [place] [address] MEDICARE [facility] MEDICARE [place] [id number] Care Teams Resident Physician In Radiology Relationship Specialty Start Date End Date Torrey Rodriguez MD [address] [place] [address] [id number] [place] PCP - General 05/22/20
== END 2024-08-17 12:47 | disposition home or self-care (01) ==
PROVIDERS: PCP Internal Medicine; Visit Provider Physician Assistant
DX: K92.1 Melena (principal)

== ENCOUNTER 2024-08-25 09:37 | Outpatient (AMB) | payer MEDICARE, OTHER, SELFPAY ==
--- NOTE | 2024-08-25 09:51 | HO.NEPHOV ---
Vital Signs 08/25/24 09:53 Height 5 ft 3 in Weight 164 lb 6 oz BMI 29.1 BP 150/60 H Blood Pressure Location Rt brachial Position Sitting Pulse 72 Pulse Source Pulse Oximeter Pulse Oximetry (%) 97 Oxygen Delivery Method Room Air Intake Visit Reasons: 6mon follow up-Conf Production Service Manager Required: No Accompanied by: Self / Same As Patient Allergies No Known Allergies [No Known Allergies*] Allergy (Verified 08/25/24 09:53) HPI Comments Details: [place] was seen in follow-up for hypertension and mild chronic kidney disease. She recently had bright red blood in stool and was seen in urgent care. Her Hb had dropped to 10.0. Her Hb has been steadily dropping over last year. She has some unintentional weight loss. Her last colonoscopy was well over 10 years. 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 She does not have any orthostatic symptoms, chest pain, shortness of breath, paroxysmal nocturnal dyspnea, orthopnea, pedal edema, hematuria or any ongoing active systemic complaints. She is compliant with a low-sodium diet and her medications. She monitors her blood pressure at home and has been at goal. She is known to have vascular disease. She has bilateral carotid artery stenosis which has been of closely followed up as well. [facility] Medical History (Updated 08/25/24 @ 10:[address] Wilburn MD) Bloody stool Arthritis Back pain Osteopenia Sciatica of left side Anemia Mild heartburn Diverticulosis Chronic renal disease Full dentures Hyperlipemia HTN (hypertension) Surgical History Hx of tonsillectomy Hx of cornea transplant Hx of right cataract extraction Hx of colonoscopy Hx of cornea transplant Family History Father No problems noted. Mother No problems noted. Brother No problems noted. Brother No problems noted. Brother No problems noted. Sister No problems noted. Sister No problems noted. Sister No problems noted. Sister No problems noted. Son No problems noted. Daughter No problems noted. Social History Household Members: Other Household Members Other:: son Housing: House Are you a primary child care centre director to a significant other at home: No Do you presently have visiting nurse or other home services: No Comment: aware of trip hazard Patient Tobacco Use Status: Former Tobacco user Tobacco use type: Cigarette Review of Systems Const All systems reviewed & are unremarkable except as noted in HPI and below Physical Exam Vital Signs: Last Vital Signs Pulse 72 08/25/24 09:53 BP 164/50 H 08/25/24 09:53 Pulse Ox 97 08/25/24 09:53 Oxygen Delivery Method Room Air 08/25/24 09:53 BMI result Body Mass Index 29.1 Const Other: Pale General: comfortable and no acute distress Orientation/consciousness: patient oriented x3 HEENT Head: Yes normocephalic Mouth: Normal oral and palatal mucosa present Eyes EOM: EOMs intact bilaterally Neck Neck: Yes supple Resp Auscultation: clear to auscultation bilaterally Cardio Jugular venous distension: no JVD Rate: regular rate GI Palpation (GI): Soft to palpation Auscultation: normal bowel sounds General: Yes no CVA tenderness Back/Spine/Pelvis Back: no CVA tenderness Skin General skin exam: no rashes or lesions noted Neuro General: patient oriented x3 and moves all extremities Extrem General: Yes no pedal edema Results Reviewed Nephrology Results: Hgb 10.0 g/dl (12.0-16.0) L 08/17/24 WBC 5.3 X10*3/uL (4.8-10.8) 03/17/24 Plt Count 246 X10*3/uL (160-400) 03/17/24 Sodium 143 mmol/L (135-145) 08/16/24 Potassium 4.5 mmol/L (3.3-5.1) 08/16/24 Chloride 114 mmol/L (96-108) H 08/16/24 Carbon Dioxide 20 mmol/L (22-29) L 08/16/24 BUN 31 mg/dL (9-16) H 08/16/24 Creatinine 1.26 mg/dL (0.5-1.4) 08/16/24 Calcium 10.0 mg/dL (8.4-10.2) 03/17/24 Assessment & Plan Assessment & Plan (1) HTN (hypertension): Code(s): I10 - Essential (primary) hypertension Category: Medical Qualifiers: Hypertension type: primary hypertension Qualified Code(s): I10 - Essential (primary) hypertension (2) CKD stage 3a, GFR 45-59 ml/min: Code(s): N18.31 - Chronic kidney disease, stage 3a Category: Medical Plan [place] has longstanding hypertension which is fairly well controlled on current medication regimen. She is history of vascular disease. She has bilateral carotid artery stenosis. She checks her blood pressure at home. He has not known to have any proteinuria. Her renal functions are stable. She has no retinopathy, clinical signs of heart failure. She is on statins. Her serum potassium is normal. She does not consume excess sodium diet. She should maintain good hydration and minimize or avoid nonsteroidal anti-inflammatories. Her blood pressure control only became optimal when nifedipine was introduced which she has been tolerating without any side effects. I did not make any medication changes today. She needs urgent colonoscopy. Answered all questions. Follow-up appointment given Coding Level of Care Code Est Pt Level 4 (14685) Diagnoses Primary hypertension I10 Hypertension type: primary hypertension CKD stage 3a, GFR 45-59 ml/min N18.31
[2024-08-25 09:53] VITALS: BP 150/60; PULSE 72; O2SAT 97; BMI 29.1
--- OUTSIDE RECORDS SUMMARY | 2024-08-25 10:44 | XMS_ITS | Clinical Summary ---
Author Organization [facility] Address [address] [place] [address] Phone Care Team Providers Care Clinical Dietician Name Role Phone Torrey Rodriguez MD Primary Care Provider Allergies No known active allergies Medications acetaminophen [...] disorder 03/24/2012 Overview (09/28/2020): Hypertensive disorder Immunizations Immunization Administration Dates Next Due Pneumococcal Polysaccharide 07/10/2012 [...] Due Date Last Done Comments Pneumococcal Vaccine: 50+ Ye ars (2 of 2 - PCV) 07/10/2013 07/10/2012 Influenza Vaccine (Season Ended) 2025 Pneumococcal Vaccine: Peds ( 0 to 5 Years) and At-Risk Patients (6 to 49 Years) Discontinued 07/10/2012 Hepatitis B Vaccine Aged Out No longe r eligible based on patient's age to complete this topic [place] [address] Medicare [facility] Medicare Care Teams Clinical Dietician Relationship Specialty Start Date End Date Torrey Rodriguez MD [address] [place] PCP - General 05/22/20
== END 2024-08-25 10:30 | disposition home or self-care (01) ==
PROVIDERS: PCP Internal Medicine; Visit Provider Internal Medicine Nephrology
DX: I10 Essential (primary) hypertension (principal); N18.31 Chronic kidney disease, stage 3a
CPT/HCPCS: 99214

== ENCOUNTER → 2024-08-25 09:37 | Outpatient (BNVA) | payer MEDICARE, OTHER, SELFPAY | PROVIDERS: PCP Internal Medicine; Visit Provider Internal Medicine Nephrology | DX: I12.9 Hypertensive chronic kidney disease with stage 1 through stage 4 chronic kidney disease, or unspecified chronic kidney disease (principal); N18.31 Chronic kidney disease, stage 3a | CPT/HCPCS: 99212 ==

== ENCOUNTER 2024-08-27 10:16 | Outpatient (AMB) | payer MEDICARE, OTHER, SELFPAY ==
[2024-08-27 10:18] VITALS: BP 140/76; PULSE 80; TEMP 36.3; O2SAT 99; BMI 28.7
--- NOTE | 2024-08-27 10:18 | MHC.PC.OV ---
Vital Signs 08/27/24 10:18 Height 5 ft 3 in Weight 162 lb BMI 28.7 BP 140/76 H Blood Pressure Location Lt brachial Position Sitting Pulse 80 Pulse Source Pulse Oximeter Temp 97.4 F Temp Source Axillary Pulse Oximetry (%) 99 Oxygen Delivery Method Room Air Intake Visit Reasons: Review Labs Supervisor Pole Yard Required: No Followed by:: self Allergies No Known Allergies [No Known Allergies*] Allergy (Verified 08/27/24 10:19) Medication List - Last Reconciled 08/27/24 by Maeve Feldman MD acetaminophen (Tylenol Extra Strength) 500 mg PO Q6H PRN aspirin (Adult Aspirin Regimen) 81 mg PO DAILY atorvastatin 40 mg PO DAILY calcium carbonate (Calcium 600) 600 mg PO DAILY carboxymethylcellulose sodium 1% 2 drps ophthalmic (eye) TID PRN cholecalciferol (vitamin D3) 10 mcg PO DAILY clonidine HCl 0.1 mg PO BID cyclosporine 0.05% (Restasis) 1 drp ophthalmic-Right TID doxycycline monohydrate 50 mg PO DAILY erythromycin 0 mg ophthalmic-Right BEDTIME famotidine (Pepcid AC) 20 mg PO DAILY PRN fenofibrate 160 mg PO DAILY lisinopril 40 mg PO BID metoprolol succinate ER 75 mg (1.5 x 50 mg) PO BID pm-zjg-mqtqx-calcium carb-K1 400 mcg-500 mg calcium-20 mcg (Women's 50 Plus Multivitamin) 1 tab PO DAILY nifedipine ER 60 mg PO BID prednisolone acetate 1% 1 drp ophthalmic-Right DAILY Tobacco use date assessed: 08/27/24 Fall risk assessment: No Falls in past year Last assessed Fall Risk: 08/27/24 Dental Screening Dental Screen Date: 08/27/24 Did you have a dental visit in the last 12 months?: No Did you have a dental problem in the last 6 months where you did not have access to dental care?: No HPI HPI Comments History of Present Illness Details The patient is an 89 year old female with a past medical history of htn, hld, anemia, GERD, CKD, OA presenting for follow up. Anemia: Recent blood in stool-bright red-seen in urgent care. Hgb dropped to 10. Overdue for colonoscopy. Does endorse constipation. ~10 pound weight loss over the past year. Feels well, no shortness of breath. No further bleeding episodes CKD: Follows with nephrology, Dr Pierre. HTN, CKD is stable. 140/72. CV: b/l carotid artery disease. Last seen 2021 History of corneal transplant ROS CONSTITUTIONAL: Denies weight loss, fever and chills. HEENT: Denies changes in vision and hearing. RESPIRATORY: Denies SOB and cough. CV: Denies palpitations and CP GI: Denies abdominal pain, nausea, vomiting and diarrhea. : Denies dysuria and urinary frequency. MSK: Denies new myalgia and joint pain. SKIN: Denies rash and pruritus. NEUROLOGICAL: Denies headache PSYCHIATRIC: Denies recent changes in mood. PHYSICAL EXAM: GENERAL: Alert and oriented x 3. NAD EYES: EOMI. Anicteric. HENT: Moist mucous membranes. No scleral icterus. No cervical lymphadenopathy. LUNGS: Clear to auscultation bilaterally. CARDIOVASCULAR: Regular rate and rhythm. No murmur. No JVD. ABDOMEN: Soft, non-tender +bs EXTREMITIES: No edema. Non-tender. SKIN: No rashes or lesions. Warm. NEUROLOGIC: No focal neurological deficits. CN II-XII grossly intact PSYCHIATRIC: Cooperative. Appropriate mood and affect [facility] Medical History Bloody stool Arthritis Back pain Osteopenia Sciatica of left side Anemia Mild heartburn Diverticulosis Chronic renal disease Full dentures Hyperlipemia HTN (hypertension) Surgical History Hx of tonsillectomy Hx of cornea transplant Hx of right cataract extraction Hx of colonoscopy (~02/05/11) Hx of cornea transplant Family History Father No problems noted. Mother No problems noted. Brother No problems noted. Brother No problems noted. Brother No problems noted. Sister No problems noted. Sister No problems noted. Sister No problems noted. Sister No problems noted. Son No problems noted. Daughter No problems noted. Social History Household Members: Other Household Members Other:: son Housing: House Are you a primary health care assistant to a significant other at home: No Do you presently have visiting nurse or other home services: No Comment: aware of trip hazard Patient Tobacco Use Status: Former Tobacco user Tobacco use type: Cigarette e-Cigarette/Vaping Use: Former Use service: No Current occupational status: retired Cognitive needs: Yes (WALKER) Hearing needs: No Vision needs: No Questionnaire PHQ-9 Over the last 2 weeks, how often have you been bothered by any of the following problems? 1. Little interest or pleasure in doing things: not at all 2. Feeling down, depressed, or hopeless: not at all 3. Trouble falling or staying asleep, or sleeping too much: not at all 4. Feeling tired or having little energy: not at all 5. Poor appetite or overeating: not at all 6. Feeling bad about yourself - or that you are a failure or have let yourself or your family down: not at all 7. Trouble concentrating on things, such as reading the newspaper or watching television: not at all 8. Moving or speaking so slowly that other people could have noticed. Or the opposite - being so fidgety or restless that you have been moving around a lot more than usual: not at all 9. Thoughts that you would be better off or of hurting yourself in some way: not at all Total score: 0 Depression Screening Interpretation: Negative Depression Screening Done: Yes 96677 - PHQ-9 Billing: Yes Source: Developed by Drs. Rene Angelo, Ewa Carrasquillo, Tommy Billy and colleagues, with an educational nora from [employer]. Thrive Questionnaire Date Thrive assessed: 08/27/24 I am a: Patient Within the past 12 months, did the food you bought not last and you didn't have the money to get more?: Never true Within the past 12 months, did you worry whether your food would run out before you got money to buy more?: Never true Do you have trouble paying for medicines?: No Do you have trouble getting transportation to medical appointments?: No Do you have trouble paying your heating and electricity bill?: No Do you have trouble taking care of your child, family member or friend?: No Do you have trouble with day-to-day activities such as bathing, preparing meals, shopping, managing finances, etc.?: No Are you currently unemployed and looking for a job?: No Are you interested in more education?: No THRIVE Score: 0 AUDIT C Alcohol Use Questionnaire (AUDIT-C) 1. How often do you have a drink containing alcohol?: Monthly or less 2. How many drinks containing alcohol do you have on a typical day when you are drinking?: 1 or 2 3. How often do you have six or more drinks on one occasion?: Less than monthly Total Score: 2 MARITZA-7 AMB Questionnaire MARITZA-7 Date MARITZA - 7 assessed: 08/27/24 Feeling nervous, anxious, or on edge: 0 = Not at all Not being able to stop or control worryin = Not at all Worrying too much about different things: 0 = Not at all Trouble relaxin = Not at all Being so restless that it is hard to sit still: 0 = Not at all Becoming easily annoyed or irritable: 0 = Not at all Feeling afraid as if something awful might happen: 0 = Not at all Total MARITZA-7 score (0-4 normal; 5-9 mild; 10-14 moderate; 15-21 severe): 0 Source: Developed by Drs. Rene Angelo, Ewa Carrasquillo, Tommy Billy and colleagues, with an educational nora from [employer]. Physical exam (Primary Care) Vital Signs: Last Vital Signs Temp 97.4 F 08/27/24 10:18 Pulse 80 08/27/24 10:18 BP 140/76 H 08/27/24 10:18 Pulse Ox 99 08/27/24 10:18 Oxygen Delivery Method Room Air 08/27/24 10:18 BMI result Body Mass Index 28.7 Tobacco/Smoking Status: Tobacco use Status Tobacco use date assessed 08/27/24 08/27/24 10:20 Patient Tobacco Use Status Former Tobacco user 08/27/24 10:20 Tobacco use type Cigarette 08/27/24 10:20 e-Cigarette/Vaping Use Former Use 08/27/24 10:20 PHQ-9: PHQ-9 Score PHQ-9: Total score 0 08/27/24 10:20 Depression Screening Interpretation: Negative Thrive Assessment: Date of Thrive Assessment Date Thrive assessed 08/27/24 08/27/24 10:20 Coding Level of Care Code New Pt Level 4 (59943) Complex EM visit Add On G2211 Diagnoses Anemia, unspecified type D64.9 Anemia type: unspecified type Bloody stool K92.1 CKD stage 3a, GFR 45-59 ml/min N18.31 Bilateral carotid artery stenosis I65.23 Laterality: bilateral Additional Codes PHQ-9 - 25929 - PHQ-9 Billing: Yes ([id number]) Assessment & Plan Assessment & Plan (1) Anemia: Code(s): D64.9 - Anemia, unspecified Category: Medical Qualifiers: Anemia type: unspecified type Qualified Code(s): D64.9 - Anemia, unspecified (2) Bloody stool: Code(s): K92.1 - Melena Category: Medical (3) CKD stage 3a, GFR 45-59 ml/min: Code(s): N18.31 - Chronic kidney disease, stage 3a Category: Medical (4) Carotid artery stenosis: Code(s): I65.29 - Occlusion and stenosis of unspecified carotid artery Category: Medical Qualifiers: Laterality: bilateral Qualified Code(s): I65.23 - Occlusion and stenosis of bilateral carotid arteries Plan 89 y/o for worsening anemia, recent bright red blood in the stool Repeat CBC Referral to GI HTN-borderline. Seeing nephrology again in one month for follow up Vascular referral placed Orders: Orders Complete Blood Count Auto Diff Today D64.9 - Anemia, unspecified IRON PROFILE Today D64.9 - Anemia, unspecified Comprehensive Met. Panel Today D64.9 - Anemia, unspecified Referrals Vascular Surgery Referral I65.29 - Occlusion and stenosis of unspecified carotid artery Gastroenterology Referral K92.1 - Melena
--- OUTSIDE RECORDS SUMMARY | 2024-08-27 11:07 | XMS_ITS | Clinical Summary ---
Author Organization [facility] Address [address] [place] [address] Phone Care Team Providers Care News Operations Manager Name Role Phone Torrey Rodriguez MD Primary Care Provider [phone] Allergies No known active allergies Medications acetaminophen [...] patient's age to complete this topic [place] [address] Medicare [facility] Medicare Care Teams News Operations Manager Relationship Specialty Start Date End Date Torrey Rodriguez MD [id number] [place] PCP - General 05/22/20
== END 2024-08-27 10:43 | disposition home or self-care (01) ==
LOC: HO.HMCHD 10:17
PROVIDERS: PCP Internal Medicine; Visit Provider Internal Medicine
DX: D64.9 Anemia, unspecified (principal); K92.1 Melena; N18.31 Chronic kidney disease, stage 3a; I65.23 Occlusion and stenosis of bilateral carotid arteries

== ENCOUNTER → 2024-08-27 10:16 | Outpatient (BNVA) | payer MEDICARE, OTHER, SELFPAY | PROVIDERS: PCP Internal Medicine; Visit Provider Internal Medicine | DX: Z13.89 Encounter for screening for other disorder (principal) | CPT/HCPCS: 96127; 99202 ==

== ENCOUNTER 2024-08-27 10:50 | Outpatient (REF) | payer MEDICARE, OTHER, SELFPAY ==
--- OUTSIDE RECORDS SUMMARY | 2024-08-27 11:55 | XMS_ITS | Clinical Summary ---
Author Organization [facility] Address [address] [place] [address] Phone Care Team Providers Care Graves Registration Specialist Name Role Phone Torrey Rodriguez MD Primary Care Provider [phone] Allergies No known active allergies Medications acetaminophen [...] patient's age to complete this topic [place] [address] Medicare [facility] Medicare Care Teams Graves Registration Specialist Relationship Specialty Start Date End Date Torrey Rodriguez MD [address] [place] PCP - General 05/22/20
[2024-08-27 13:23] LABS: MANUAL DIFF FLAG NO
[2024-08-27 13:36] LABS: Basophils Absolute Auto 0.1 X10*3/uL (0.0-0.2); Basophils Percent Auto 0.8 % (0-2); Eosinophils Absolute Auto 0.2 X10*3/uL (0.0-0.4); Eosinophils Percent Auto 2.4 % (0-4); Hematocrit 33.4 % (37.0-47.0); Hemoglobin 10.5 g/dl (12.0-16.0); Imm Gran Abs Auto 0.02 X10*3/uL (0.00-0.03); Imm Gran Pct Auto 0.3 % (0.0-0.4); Lymphocytes Absolute Auto 1.6 X10*3/uL (1.2-4.9); Lymphocytes Percent Auto 25.8 % (20-40); Mean Corpuscular HGB Conc 31.4 g/dl (31.0-35.0); Mean Corpuscular Hemoglobin 31.6 pg (27.0-33.0); Mean Corpuscular Volume 100.6 fL (80.0-98.0); Mean Platelet Volume 11.9 fL (9.4-12.3); Monocytes Absolute Auto 0.7 X10*3/uL (0.1-1.2); Monocytes Percent Auto 11.8 % (2-11); Neutrophils Absolute Auto 3.6 x10*3/uL (2.0-8.3); Neutrophils Percent Auto 58.9 % (45-73); Platelet Count 317 X10*3/uL (160-400); Red Blood Count 3.32 X10*6/uL (4.20-5.50); Red Cell Distribution Width 12.9 % (11.0-16.0); White Blood Count 6.2 X10*3/uL (4.8-10.8)
[2024-08-27 14:05] LABS: Alanine Aminotransferase 14 U/L (0-31); Albumin Level 4.2 g/dL (3.5-5.0); Anion Gap 13 (12-20); Aspartate Amino Transferase 23 U/L (5-31); Bilirubin Total 0.4 mg/dL (0.0-1.0); Blood Urea Nitrogen 31 mg/dL (9-16); Calcium 9.9 mg/dL (8.4-10.2); Carbon Dioxide 22 mmol/L (22-29); Chloride 112 mmol/L (96-108); Estimated Glomerular Filt Rate 41; Glucose Random 112 mg/dL (60-115); Iron 90 mcg/dL (30-160); Percent Iron Saturation 24 % (15-50); Potassium 4.9 mmol/L (3.3-5.1); Sodium 142 mmol/L (135-145); Total Iron Binding Capacity 376 mcg/dL (228-428); Total Protein 7.4 g/dL (6.5-8.0); Unsaturated Iron Binding 286 ug/dL
[2024-08-27 19:45] LABS: Alkaline Phosphatase 45 U/L (39-117)
== END 2024-08-27 10:51 | disposition home or self-care (01) ==
LOC: HO.10HDL 10:50
PROVIDERS: Visit Provider Internal Medicine
DX: D64.9 Anemia, unspecified (principal); K92.1 Melena; N18.31 Chronic kidney disease, stage 3a; I65.23 Occlusion and stenosis of bilateral carotid arteries
CPT/HCPCS: 36415; 80053; 83540; 85025; 96127; 99202

== ENCOUNTER 2024-09-09 09:10 | Outpatient (AMB) | payer MEDICARE, OTHER, SELFPAY ==
[2024-09-09 09:13] VITALS: BP 168/70; PULSE 79; O2SAT 98; BMI 28.2
--- NOTE | 2024-09-09 09:13 | A.OFFVIS_ITS ---
Vital Signs 09/09/24 09:13 Height 5 ft 3 in Weight 159 lb BMI 28.2 BP 168/70 H Blood Pressure Location Lt brachial Position Sitting Pulse 79 Pulse Oximetry (%) 98 Oxygen Delivery Method Room Air Intake Visit Reasons: Melena Intake Note: Patient new consult for Rectal bleeding. Patient cc: rectal bleeding for one date last week, abdominal bloating with constipation with some hard stool, acid reflux, almost of the time she is tired. Denies any other GI issues. Wastewater Operator Required: No Accompanied by: Self / Same As Patient Allergies No Known Allergies [No Known Allergies*] Allergy (Verified 09/09/24 09:12) Medication List - Last Reconciled 09/09/24 by Shruti Ennis CNP acetaminophen (Tylenol Extra Strength) 500 mg PO Q6H PRN aspirin (Adult Aspirin Regimen) 81 mg PO DAILY atorvastatin 40 mg PO DAILY calcium carbonate (Calcium 600) 600 mg PO DAILY carboxymethylcellulose sodium 1% 2 drps ophthalmic (eye) TID PRN cholecalciferol (vitamin D3) 10 mcg PO DAILY clonidine HCl 0.1 mg PO BID cyclosporine 0.05% (Restasis) 1 drp ophthalmic-Right TID doxycycline monohydrate 50 mg PO DAILY erythromycin 0 mg ophthalmic-Right BEDTIME famotidine (Pepcid AC) 20 mg PO DAILY PRN fenofibrate 160 mg PO DAILY lisinopril 40 mg PO BID metoprolol succinate ER 75 mg (1.5 x 50 mg) PO BID fo-aot-takvk-calcium carb-K1 400 mcg-500 mg calcium-20 mcg (Women's 50 Plus Multivitamin) 1 tab PO DAILY nifedipine ER 60 mg PO BID prednisolone acetate 1% 1 drp ophthalmic-Right DAILY HPI HPI Melena: Details: Patient is a 89-year-old female with PMH of hypertension, hyperlipidemia, arthritis, CKD and acid reflux. She was referred by PCP for further evaluation of blood in stools. Pt is here today for further evaluaiton of blood in stools. She reports one episode of bright red bleeding after loose stools approximately 3 weeks ago. She denies repeat episodes. Reports constipation with approx 3 BM/week, type 5-6 on [place] stool chart. She manages symptoms with 4oz of prune juice daily with increased in frequency to every other day. Associated symptoms:decreased appetite changes x 2 weeks. Patient denies: fever/chills, focal symptoms, n/v, unintentional wt loss, ab pain or dysphasia She reports onset of pyrosis approx 5-6 years ago. She reports episode occur approx 3x/week relieved with pepcid or a single OLIVIA. Reports 1-2 episode of nocturnal regurgitation since onset. last screening colonoscopy 2010. States prior screening was via stool testing in 2000 with suspected negative results. Reports recent elevation in BP above baseline. She had a visit with Nephrology last week and is scheduled to follow up with their office in three weeks. Common foods consumed: homemade vegetables soup beef, pasta, sauces some fruit water for hydration 36oz Social hx: 1 glass of wine 1x/year denies recreational drug use cessation 38 years ago -family hx as below -denies personal hx of CA -denies any other significant cardiopulmonary history -tolerated anesthesia in the past without difficulty. [facility], [facility] Medical History (Updated 09/09/24 @ 12:27 by Shruti Ennis CNP) Mild acid reflux Acid reflux Bloody stool Arthritis Back pain Osteopenia Sciatica of left side Anemia Mild heartburn Diverticulosis Chronic renal disease Full dentures Hyperlipemia HTN (hypertension) Surgical History Hx of tonsillectomy Hx of cornea transplant Hx of right cataract extraction Hx of colonoscopy (~02/05/11) Hx of cornea transplant Family History Father No problems noted. Mother No problems noted. Brother No problems noted. Brother No problems noted. Brother No problems noted. Sister No problems noted. Sister No problems noted. Sister No problems noted. Sister No problems noted. Son No problems noted. Daughter No problems noted. Social History Household Members: Other Household Members Other:: son Housing: House Are you a primary menagerie caretaker to a significant other at home: No Do you presently have visiting nurse or other home services: No Comment: aware of trip hazard Patient Tobacco Use Status: Former Tobacco user Tobacco use type: Cigarette e-Cigarette/Vaping Use: Former Use service: No Current occupational status: retired Cognitive needs: Yes (WALKER) Hearing needs: No Vision needs: No Review of Systems Const Reports as per HPI ENT Reports as per HPI Card Reports as per HPI Resp Reports as per HPI GI Reports as per HPI Reports as per HPI Physical Exam Vital Signs: Last Vital Signs Pulse 79 09/09/24 09:13 BP 168/70 H 09/09/24 09:13 Pulse Ox 98 09/09/24 09:13 Oxygen Delivery Method Room Air 09/09/24 09:13 BMI result Body Mass Index 28.2 Const General: healthy appearing, no acute distress and well developed Nutritional Appearance: well nourished Orientation/consciousness: patient oriented x3 HEENT Head: Yes normal to inspection, Yes normocephalic and Yes atraumatic Face and sinus: Yes normal facial exam Eyes General: appearance normal, both eyes and all related structures Neck Neck: Yes normal visual inspection Resp Effort & Inspection: normal respiratory effort, able to speak in complete sentences, no tracheal deviation and symmetric chest movement Auscultation: clear to auscultation bilaterally Cardio Jugular venous distension: no JVD Rate: regular rate Rhythm: regular rhythm Heart sounds: S1 normal heart sound present, S2 normal heart sound present, no gallops and no murmurs GI Inspection: Yes normal to inspection, No distended and Yes obesity Palpation (GI): Soft to palpation, not firm, nontender and No hepatosplenomegaly present Auscultation: normal bowel sounds Neuro General: patient oriented x3 Gait exam (Neuro): Normal gait present and Assisted gait required Gait assisted method: walker Psych Appearance: grossly normal Mental Status: mental status grossly normal Speech and movement: Normal speech and movement present Affect: normal affect Attitude: cooperative Thought process: Normal thought process present Thought content: Normal thought content present Insight: Good insight present (Psych) Judgement: Good judgement present (Psych) Results Reviewed Results Reviewed: Laboratory Tests 06/26/18 08/27/24 09:40 10:55 WBC 6.2 RBC 3.32 L Hgb 10.5 L Hct 33.4 L MCV 100.6 H MCH 31.6 MCHC 31.4 RDW 12.9 Plt Count 317 D Sodium 142 Potassium 4.9 Chloride 112 H Carbon Dioxide 22 Anion Gap 13 BUN 31 H Estimated GFR 41 Random Glucose 112 Calcium 9.9 Iron 90 TIBC 376 % Saturation 24 Unsat Iron Binding 286 Total Bilirubin 0.4 AST 23 ALT 14 Alkaline Phosphatase 45 Total Protein 7.4 Albumin 4.2 Vitamin B12 355 Results Pulled from historical: Colonoscopy 02/05/2011 ( age 76) Three diminutive polyps of distal rectum Diverticulosis primarily left-sided. Pathology: For portions of hyperplastic colonic mucosa, each with an intramucosal lymphoid nodule Assessment & Plan Assessment & Plan (1) Bloody stool: Comment: Colonoscopy 01/2011: Hyperplastic colonic mucosa with intramucosal lymphoid nodules + Diverticulosis primarily left-sided. Code(s): K92.1 - Melena Category: Medical Plan: Isolated episode. CBC with evidence of stable chronic macrocytic anemia as evident on 08/28/2023 labs (see above). Last colonoscopy 2010 hyperplastic polyps and diverticulosis. She is otherwise asymptomatic without any alarm features. However, we did discuss further evaluation with either imaging or colonoscopy. Kidney functions as above. She has some apprehension about proceeding with procedures given need for sedation. We discussed starting workup with imaging to evaluate for any including but not limited to renal lesions, obvious masses, small bowel etiology, spenomegaly. Although, after conferring with a colleague we will revisit conversation for plan to include CT AND endoscopic procedures-EGD/colonoscopy. Attempted [place] this afternoon to discuss update in plan, awaiting callback. 09/10/2024 1500: Spoke with Ary and after some education she was agreeable to endoscopic procedures. Reviewed prep and procedure expectations. She requested PEG Prep, Rx sent to preferred pharmacy. (2) Mild acid reflux: Code(s): K21.9 - Gastro-esophageal reflux disease without esophagitis Category: Medical Plan: fairly controlled with Pepcid as needed. We discussed obtaining EGD as above to r/o esophagitis, gastritis, or peptic ulcer disease. Education on GERD prevention : Advised against heavy meals; encouraged small, frequent meals instead of large ones. ? Instructed to remain upright for 2?3 hours after eating. ? Advised to avoid late-night meals, spicy foods, caffeine, alcohol, known dietary triggers, and tight-fitting clothing. ? Emphasis placed on gradual implementation of lifestyle changes to improve adherence and symptom control. Plan Follow-up in 3 weeks or sooner as needed. Time: I spent a total of 60 minutes on the date of encounter which includes: Preparing to see the patient (reviewed previous documentation, test results and medical history) Performing a medically appropriate exam and/or evaluation Ordering medications, tests, and procedures Documenting clinical information in the health record Orders: Orders CT abdomen pelvis w IV con Today K92.1 - Melena Medications: New bisacodyl Take all four tablets at 12 noon day of prep 5 mg PO ONCE 1 day 4 tabs 0RF barium sulfate 2%(w/v) (Readi-Cat 2) Day of CT scan: 2 hours before your appointment drink the 1st Bottle (450 ml) of the READI-CAT 2, 1 hour before your appointment drink the 2nd bottle (450 ml) of the READI-CAT 2 900 mL 0RF peg 3350-electrolytes 236-22.74-6.74 -5.86 gram Day of colonoscopy prep:4pm drink the first 2L, At 10 pm drink the second 2L, both should take 90-120 minutes to complete. 240 mL PO Q10M 4,000 mL 0RF simethicone (Gas Relief (simethicone)) Day of colonoscopy prep:12 noon take two tablets, At 10 pm take the last two tablets 4 caps 0RF abdominal distention Coding Level of Care Code New Pt New Pt Level 5 (12828) Patient Type New Diagnoses Bloody stool K92.1 Mild acid reflux K21.9
--- OUTSIDE RECORDS SUMMARY | 2024-09-09 09:54 | XMS_ITS | Clinical Summary ---
Author Organization [facility] Address [address] [place] [address] Phone Care Team Providers Care Locomotive Electrician Name Role Phone Torrey Rodriguez MD Primary Care Provider [phone] Allergies No known active allergies Medications acetaminophen [...] patient's age to complete this topic [place] [address] Medicare [facility] Medicare Care Teams Locomotive Electrician Relationship Specialty Start Date End Date Torrey Rodriguez MD [address] [place] PCP - General 05/22/20
== END 2024-09-09 10:26 | disposition home or self-care (01) ==
LOC: HO.HGI 09:11
PROVIDERS: PCP Internal Medicine; Visit Provider Nurse Practitioner Family
DX: K92.1 Melena (principal); K21.9 Gastro-esophageal reflux disease without esophagitis
CPT/HCPCS: 99205

== ENCOUNTER → 2024-09-09 09:10 | Outpatient (BNVA) | payer MEDICARE, OTHER, SELFPAY | PROVIDERS: PCP Internal Medicine; Visit Provider Nurse Practitioner Family | DX: K92.1 Melena (principal); K21.9 Gastro-esophageal reflux disease without esophagitis | CPT/HCPCS: 99202 ==

== ENCOUNTER 2024-09-22 08:43 | Outpatient (REF) | payer MEDICARE, OTHER, SELFPAY ==
--- OUTSIDE RECORDS SUMMARY | 2024-09-22 08:59 | XMS_ITS | Clinical Summary ---
Author Organization [facility] Address [address] [place] [address] Phone Care Team Providers Care Poultry Slaughterer Name Role Phone Torrey Rodriguez MD Primary Care Provider [phone] Allergies No known active allergies Medications acetaminophen [...] patient's age to complete this topic [place] [address] Medicare [facility] Medicare Care Teams Poultry Slaughterer Relationship Specialty Start Date End Date Torrey Rodriguez MD [address] [place] PCP - General 05/22/20
[2024-09-22 10:22] LABS: Anion Gap 14 (12-20); Blood Urea Nitrogen 23 mg/dL (9-16); Calcium 9.4 mg/dL (8.4-10.2); Carbon Dioxide 21 mmol/L (22-29); Chloride 111 mmol/L (96-108); Estimated Glomerular Filt Rate 37; Glucose Random 101 mg/dL (60-115); Potassium 4.6 mmol/L (3.3-5.1); Sodium 141 mmol/L (135-145)
== END 2024-09-22 08:44 | disposition home or self-care (01) ==
LOC: HO.10HDL 08:43
PROVIDERS: Visit Provider Nurse Practitioner Family
DX: N18.2 Chronic kidney disease, stage 2 (mild) (principal)
CPT/HCPCS: 36415; 80048

== ENCOUNTER 2024-09-29 11:28 | Outpatient (AMB) | payer MEDICARE, OTHER, SELFPAY ==
--- NOTE | 2024-09-29 12:10 | HO.NEPHOV ---
Vital Signs 09/29/24 12:14 Height 5 ft 3 in Weight 159 lb 2 oz BMI 28.2 BP 196/54 H Blood Pressure Location Rt brachial Position Sitting Pulse 70 Pulse Source Pulse Oximeter Pulse Oximetry (%) 99 Oxygen Delivery Method Room Air Intake Visit Reasons: 1mon follow-up No labs-LVM Scientific Research Manager Required: No Accompanied by: Self / Same As Patient Allergies No Known Allergies [No Known Allergies*] Allergy (Verified 09/29/24 12:14) HPI Comments Details: [place] was seen in follow-up for hypertension and mild chronic kidney disease. She is due to have endoscopy. Her BP remains labile and uncontrolled. 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 She does not have any orthostatic symptoms, chest pain, shortness of breath, paroxysmal nocturnal dyspnea, orthopnea, pedal edema, hematuria or any ongoing active systemic complaints. She is compliant with a low-sodium diet and her medications. She monitors her blood pressure at home and has not been at goal. She is known to have vascular disease. She has bilateral carotid artery stenosis which has been of closely followed up as well. [facility] Medical History (Updated 09/09/24 @ 12:27 by Shruti Ennis CNP) Mild acid reflux Acid reflux Bloody stool Arthritis Back pain Osteopenia Sciatica of left side Anemia Mild heartburn Diverticulosis Chronic renal disease Full dentures Hyperlipemia HTN (hypertension) Surgical History Hx of tonsillectomy Hx of cornea transplant Hx of right cataract extraction Hx of colonoscopy (~02/05/11) Hx of cornea transplant Family History Father No problems noted. Mother No problems noted. Brother No problems noted. Brother No problems noted. Brother No problems noted. Sister No problems noted. Sister No problems noted. Sister No problems noted. Sister No problems noted. Son No problems noted. Daughter No problems noted. Social History Household Members: Other Household Members Other:: son Housing: House Are you a primary hospice care transitions coordinator to a significant other at home: No Do you presently have visiting nurse or other home services: No Comment: aware of trip hazard Patient Tobacco Use Status: Former Tobacco user Tobacco use type: Cigarette e-Cigarette/Vaping Use: Former Use service: No Current occupational status: retired Cognitive needs: Yes (WALKER) Hearing needs: No Vision needs: No Review of Systems Const All systems reviewed & are unremarkable except as noted in HPI and below Physical Exam Vital Signs: Last Vital Signs Pulse 70 09/29/24 12:14 BP 196/54 H 09/29/24 12:14 Pulse Ox 99 09/29/24 12:14 Oxygen Delivery Method Room Air 09/29/24 12:14 BMI result Body Mass Index 28.2 Const General: comfortable and no acute distress Orientation/consciousness: patient oriented x3 HEENT Head: Yes normocephalic Mouth: Normal oral and palatal mucosa present Eyes EOM: EOMs intact bilaterally Neck Neck: Yes supple Resp Auscultation: clear to auscultation bilaterally Cardio Jugular venous distension: no JVD Rate: regular rate GI Palpation (GI): Soft to palpation Auscultation: normal bowel sounds General: Yes no CVA tenderness Back/Spine/Pelvis Back: no CVA tenderness Skin General skin exam: no rashes or lesions noted Neuro General: patient oriented x3 and moves all extremities Extrem General: Yes no pedal edema Results Reviewed Nephrology Results: Hgb 10.5 g/dl (12.0-16.0) L 08/27/24 WBC 6.2 X10*3/uL (4.8-10.8) 08/27/24 Plt Count 317 X10*3/uL (160-400) 08/27/24 Sodium 141 mmol/L (135-145) 09/22/24 Potassium 4.6 mmol/L (3.3-5.1) 09/22/24 Chloride 111 mmol/L (96-108) H 09/22/24 Carbon Dioxide 21 mmol/L (22-29) L 09/22/24 BUN 23 mg/dL (9-16) H 09/22/24 Creatinine 1.34 mg/dL (0.5-1.4) 09/22/24 Calcium 9.4 mg/dL (8.4-10.2) 09/22/24 Assessment & Plan Assessment & Plan (1) HTN (hypertension): Code(s): I10 - Essential (primary) hypertension Category: Medical Qualifiers: Hypertension type: primary hypertension Qualified Code(s): I10 - Essential (primary) hypertension (2) CKD stage 3a, GFR 45-59 ml/min: Code(s): N18.31 - Chronic kidney disease, stage 3a Category: Medical Plan [place] has longstanding hypertension which is not well controlled on current medication regimen. She is history of vascular disease. She has bilateral carotid artery stenosis. She checks her blood pressure at home. He has not known to have any proteinuria. Her renal functions are stable. She has no retinopathy, clinical signs of heart failure. She is on statins. Her serum potassium is normal. She does not consume excess sodium diet. She should maintain good hydration and minimize or avoid nonsteroidal anti-inflammatories. I ordered 24 hour ABPM today. I did not make any medication changes today but plan to initiate her on Spironolactone if her BP remains high on BPM. Answered all questions. Follow-up appointment given in 2 days Orders: Orders AMB 24 HR B/P Monitor PLACEMENT Today I10 - Essential (primary) hypertension Coding Level of Care Code Est Pt Level 4 (83161) Diagnoses Primary hypertension I10 Hypertension type: primary hypertension CKD stage 3a, GFR 45-59 ml/min N18.31
[2024-09-29 12:14] VITALS: BP 196/54; PULSE 70; O2SAT 99; BMI 28.2
--- OUTSIDE RECORDS SUMMARY | 2024-09-29 12:52 | XMS_ITS | Clinical Summary ---
Author Organization [facility] Address [address] [place] [address] Phone Care Team Providers Care Physical Geographer Name Role Phone Torrey Rodriguez MD Primary Care Provider [phone] Allergies No known active allergies Medications acetaminophen [...] patient's age to complete this topic [place] [address] Medicare [facility] Medicare Care Teams Physical Geographer Relationship Specialty Start Date End Date Torrey Rodriguez MD [address] [place] PCP - General 05/22/20
== END 2024-09-29 12:31 | disposition home or self-care (01) ==
LOC: HO.HKA 11:30
PROVIDERS: PCP Internal Medicine; Visit Provider Internal Medicine Nephrology
DX: I10 Essential (primary) hypertension (principal); N18.31 Chronic kidney disease, stage 3a
CPT/HCPCS: 99214

== ENCOUNTER → 2024-09-29 11:28 | Outpatient (BNVA) | payer MEDICARE, OTHER, SELFPAY | PROVIDERS: PCP Internal Medicine; Visit Provider Internal Medicine Nephrology | DX: I12.9 Hypertensive chronic kidney disease with stage 1 through stage 4 chronic kidney disease, or unspecified chronic kidney disease (principal); N18.31 Chronic kidney disease, stage 3a | CPT/HCPCS: 99212 ==

== ENCOUNTER → 2024-09-30 11:36 | Outpatient (BNVA) | payer MEDICARE, OTHER, SELFPAY | PROVIDERS: PCP Internal Medicine; Visit Provider Internal Medicine Nephrology | DX: I10 Essential (primary) hypertension (principal) | CPT/HCPCS: 93786; 93788 ==

== ENCOUNTER 2024-10-01 08:47 | Outpatient (REF) | payer MEDICARE, OTHER, SELFPAY ==
--- NOTE | ~2024-10-01 | CT_ITS ---
EXAMINATION: CT ABDOMEN AND PELVIS WITH CONTRAST CLINICAL INFORMATION: Bloody stool. COMPARISON: None available. TECHNIQUE: Multidetector volumetric images were obtained from the superior aspect of the liver through the pubic symphysis following administration 85 mL of Omnipaque 350 intravenous contrast. Sagittal and coronal reformatted images were obtained on the technologist's workstation. Oral contrast: No This CT examination was performed using dose optimization techniques as appropriate, variously including the following: *Automated exposure control *Adjustment of mA and/or kV according to patient size (this includes techniques or standardized protocols for targeted exams where dose is matched to indication/reason for exam; i.e. extremities or head) *Use of iterative reconstruction technique DLP: 361 mGy centimeter. FINDINGS: LUNG BASES: No acute airspace disease. Centrilobular emphysematous type changes. LIVER, GALLBLADDER, AND BILIARY TREE: Liver measures 13 cm. Nodular surface. Decreased enhancement pattern. No focal mass. Dystrophic calcification adjacent to the falciform ligament. Portal veins, hepatic veins and intrahepatic portion of the IVC are patent. Intraluminal hyperdensity in a contracted gallbladder. No pericholecystic fluid collection or gallbladder wall thickening. Common bile duct measures 8 mm. No intrahepatic biliary ductal dilatation. PANCREAS: No focal lesion. No peripancreatic fluid collection. No main pancreatic ductal dilatation. SPLEEN: 8 cm. No focal lesion. ADRENAL GLANDS: There is a 1.4 cm hypodense nodule in the left adrenal gland. No nodular lesion right adrenal gland. KIDNEYS AND URETERS: Bilateral renal cortical thinning. Multifocal small cystic lesions throughout the renal parenchyma, bilaterally. No gross hydronephrosis or nephrolithiasis. BLADDER: Fluid-filled. GASTROINTESTINAL TRACT: Hiatal hernia, small to moderate-sized containing retained contrast in the distal esophagus. Abundant stool throughout the large intestine. Scattered diverticula in the left hemicolon. No intestinal obstruction pattern. No pneumatosis intestinalis. The appendix appears normal. No concentric wall thickening. No ascites. No pneumoperitoneum. No peripheral enhancing fluid collection, peritoneal cavity. ABDOMINAL WALL: Small fat-containing umbilical hernia. LYMPH NODES: Nonspecific prominent mesenteric and retroperitoneum. VASCULAR: Mixed plaques throughout the descending thoracic aorta abdominal aorta and iliac arteries without aneurysm or dissection. Segmental areas of narrowing/stenosis involving distal abdominal aorta with the Complete occlusion into the right common iliac artery. Calcified plaques in the origin of the mesenteric arteries and the main renal arteries. Calcified plaques in the coronary arteries no fully included in the [id number]. PELVIC VISCERA: No gross masses. OSSEOUS STRUCTURES: S-shaped curvature of the thoracolumbar spine. Multilevel spondylosis resulting in grade 1 anterolisthesis L4-5 with the central spinal canal and bilateral neuroforamina stenosis. Grade 1 retrolisthesis L5-S1. Focal 6 mm sclerotic lesion left hemisacrum, nonspecific. Osteopenia versus osteoporosis. No acute fracture. CT/CT abdomen pelvis w IV con IMPRESSION: Abundant stool within the large intestine. The exam is limited in detecting intraluminal pathology. Diverticular disease. Probable cholelithiasis. Concerning medical renal disease. Coronary artery disease and atherosclerosis disease. 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 1.4 cm nodular lesion left adrenal gland. Bilateral renal cysts. Hiatal hernia. Fleischner guidelines were followed. Electronically signed by: Arvin Mari MD 10/01/2024 09:57 AM EDT
--- OUTSIDE RECORDS SUMMARY | 2024-10-01 09:05 | XMS_ITS | Clinical Summary ---
Author Organization [facility] Address [address] [place] [address] Phone Care Team Providers Care Cryptographic Technician Name Role Phone Torrey Rodriguez MD Primary Care Provider [phone] Allergies No known active allergies Medications acetaminophen [...] patient's age to complete this topic [place] [address] Medicare [facility] Medicare Care Teams Cryptographic Technician Relationship Specialty Start Date End Date Torrey Rodriguez MD [address] [place] PCP - General 05/22/20
[2024-10-01] MEDS: iohexoL 350 MG/ML 100 ML INFUS..BTL IV (09:35)
== END 2024-10-01 08:48 | disposition home or self-care (01) ==
LOC: HO.CT 08:47
PROVIDERS: PCP Internal Medicine; Visit Provider Nurse Practitioner Family
DX: K52.1 Toxic gastroenteritis and colitis (principal); I12.9 Hypertensive chronic kidney disease with stage 1 through stage 4 chronic kidney disease, or unspecified chronic kidney disease; N18.31 Chronic kidney disease, stage 3a
CPT/HCPCS: 74177; 99212; Q9967

== ENCOUNTER → 2024-10-01 09:00 | Outpatient (BNV) | payer MEDICARE, OTHER, SELFPAY | PROVIDERS: PCP Internal Medicine; Visit Provider Radiology Diagnostic Radiology | DX: K57.31 Diverticulosis of large intestine without perforation or abscess with bleeding (principal) | CPT/HCPCS: 74177 ==

== ENCOUNTER 2024-10-01 09:32 | Outpatient (AMB) | payer MEDICARE, OTHER, SELFPAY ==
--- NOTE | 2024-10-01 09:38 | HO.NEPHOV_ITS ---
Vital Signs 10/01/24 09:39 Height 5 ft 3 in Weight 161 lb 6 oz BMI 28.6 BP 160/60 H Blood Pressure Location Rt brachial Position Sitting Pulse 84 Pulse Source Pulse Oximeter Pulse Oximetry (%) 97 Oxygen Delivery Method Room Air Intake Visit Reasons: BPM Results Manager Of Operations Required: No Accompanied by: Self / Same As Patient Allergies No Known Allergies [No Known Allergies*] Allergy (Verified 10/01/24 09:39) HPI Comments Details: [place] was seen in follow-up for hypertension and mild chronic kidney disease. She is due to have endoscopy. Her BP remains labile and uncontrolled. 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 She does not have any orthostatic sympt oms, chest pain, shortness of breath, paroxysmal nocturnal dyspnea, orthopnea, pedal edema, hematuria or any ongoing active systemic complaints. She is compliant with a low-sodium diet and her medications. She monitors her blood pressure at home and has not been at goal. She is known to have vascular disease. She has bilateral carotid artery stenosis which has been of closely followed up as well. She had a 24 hour BP monitor which showed uncontrolled BP [facility] Medical History (Updated 09/09/24 @ 12:27 by Shruti Ennis CNP) Mild acid reflux Acid reflux Bloody stool Arthritis Back pain Osteopenia Sciatica of left side Anemia Mild heartburn Diverticulosis Chronic renal disease Full dentures Hyperlipemia HTN (hypertension) Surgical History Hx of tonsillectomy Hx of cornea transplant Hx of right cataract extraction Hx of colonoscopy (~02/05/11) Hx of cornea transplant Family History Father No problems noted. Mother No problems noted. Brother No problems noted. Brother No problems noted. Brother No problems noted. Sister No problems noted. Sister No problems noted. Sister No problems noted. Sister No problems noted. Son No problems noted. Daughter No problems noted. Social History Household Members: Other Household Members Other:: son Housing: House Are you a primary healthcare financial analyst to a significant other at home: No Do you presently have visiting nurse or other home services: No Comment: aware of trip hazard Patient Tobacco Use Status: Former Tobacco user Tobacco use type: Cigarette e-Cigarette/Vaping Use: Former Use service: No Current occupational status: retired Cognitive needs: Yes (WALKER) Hearing needs: No Vision needs: No Review of Systems Const All systems reviewed & are unremarkable except as noted in HPI and below Physical Exam Vital Signs: Last Vital Signs Pulse 84 10/01/24 09:39 BP 160/60 H 10/01/24 09:39 Pulse Ox 97 10/01/24 09:39 Oxygen Delivery Method Room Air 10/01/24 09:39 BMI result Body Mass Index 28.6 Const General: comfortable and no acute distress Orientation/consciousness: patient oriented x3 HEENT Head: Yes normocephalic Mouth: Normal oral and palatal mucosa present Eyes EOM: EOMs intact bilaterally Neck Neck: Yes supple Resp Auscultation: clear to auscultation bilaterally Cardio Jugular venous distension: no JVD Rate: regular rate GI Palpation (GI): Soft to palpation Auscultation: normal bowel sounds General: Yes no CVA tenderness Back/Spine/Pelvis Back: no CVA tenderness Skin General skin exam: no rashes or lesions noted Neuro General: patient oriented x3 and moves all extremities Extrem General: Yes no pedal edema Results Reviewed Nephrology Results: Hgb 10.5 g/dl (12.0-16.0) L 08/27/24 WBC 6.2 X10*3/uL (4.8-10.8) 08/27/24 Plt Count 317 X10*3/uL (160-400) 08/27/24 Sodium 141 mmol/L (135-145) 09/22/24 Potassium 4.6 mmol/L (3.3-5.1) 09/22/24 Chloride 111 mmol/L (96-108) H 09/22/24 Carbon Dioxide 21 mmol/L (22-29) L 09/22/24 BUN 23 mg/dL (9-16) H 09/22/24 Creatinine 1.34 mg/dL (0.5-1.4) 09/22/24 Calcium 9.4 mg/dL (8.4-10.2) 09/22/24 Assessment & Plan Assessment & Plan (1) HTN (hypertension): Code(s): I10 - Essential (primary) hypertension Category: Medical Qualifiers: Hypertension type: primary hypertension Qualified Code(s): I10 - Essential (primary) hypertension (2) CKD stage 3a, GFR 45-59 ml/min: Code(s): N18.31 - Chronic kidney disease, stage 3a Category: Medical Plan [place] has longstanding hypertension which is not well controlled on current medication regimen. She is history of vascular disease. She has bilateral carotid artery stenosis. She checks her blood pressure at home. He has not known to have any proteinuria. Her renal functions are stable. She has no retinopathy, clinical signs of heart failure. She is on statins. Her serum potassium is normal. She does not consume excess sodium diet. She should maintain good hydration and minimize or avoid nonsteroidal anti-inflammatories. Her 24 hour ABPM showed uncontrolled BP I ordered Doppler of renal arteries. I started Spironolactone 12.5 mg daily and dropped clonidine to once a day at night. I ordered F/U labs in 2 weeks. I did not make any other medication changes today. Answered all questions. Orders: Orders US renal BI 1 Week I10 - Essential (primary) hypertension, N18.31 - Chronic kidney disease, stage 3a US renal doppler 1 Week I10 - Essential (primary) hypertension, N18.31 - Chronic kidney disease, stage 3a Creatinine 2 Weeks I10 - Essential (primary) hypertension, N18.31 - Chronic kidney disease, stage 3a Blood Urea Nitrogen 2 Weeks I10 - Essential (primary) hypertension, N18.31 - Chronic kidney disease, stage 3a Electrolytes 2 Weeks I10 - Essential (primary) hypertension, N18.31 - Chronic kidney disease, stage 3a Medications: New spironolactone 12.5 mg (1/2 x 25 mg) PO DAILY 30 days 15 tabs 3RF Coding Level of Care Code Est Pt Level 4 (97905) Diagnoses Primary hypertension I10 Hypertension type: primary hypertension CKD stage 3a, GFR 45-59 ml/min N18.31
[2024-10-01 09:39] VITALS: BP 160/60; PULSE 84; O2SAT 97; BMI 28.6
== END 2024-10-01 10:21 | disposition home or self-care (01) ==
LOC: HO.HKA 09:32
PROVIDERS: PCP Internal Medicine; Visit Provider Internal Medicine Nephrology
DX: I12.9 Hypertensive chronic kidney disease with stage 1 through stage 4 chronic kidney disease, or unspecified chronic kidney disease (principal); N18.31 Chronic kidney disease, stage 3a
CPT/HCPCS: 93790; 99214

== ENCOUNTER 2024-10-07 07:25 | Outpatient (REF) | payer MEDICARE, OTHER, SELFPAY ==
--- OUTSIDE RECORDS SUMMARY | 2024-10-07 07:27 | XMS_ITS | Clinical Summary ---
Author Organization [facility] Address [address] [place] [address] Phone Care Team Providers Care Spray Ii Painter Name Role Phone Torrey Rodriguez MD Primary Care Provider [phone] Allergies No known active allergies Medications acetaminophen [...] patient's age to complete this topic [place] [address] Medicare [facility] Medicare Care Teams Spray Ii Painter Relationship Specialty Start Date End Date Torrey Rodriguez MD [address] [place] PCP - General 05/22/20
[2024-10-07 10:25] LABS: Anion Gap 14 (12-20); Blood Urea Nitrogen 25 mg/dL (9-16); Carbon Dioxide 21 mmol/L (22-29); Chloride 113 mmol/L (96-108); Estimated Glomerular Filt Rate 38; Potassium 4.7 mmol/L (3.3-5.1); Sodium 143 mmol/L (135-145)
== END 2024-10-07 07:26 | disposition home or self-care (01) ==
LOC: HO.10HDL 07:25
PROVIDERS: Visit Provider Internal Medicine Nephrology
DX: N18.31 Chronic kidney disease, stage 3a (principal); I10 Essential (primary) hypertension; K21.9 Gastro-esophageal reflux disease without esophagitis; K59.09 Other constipation; R93.89 Abnormal findings on diagnostic imaging of other specified body structures
CPT/HCPCS: 36415; 80051; 82565; 84520; 99212

== ENCOUNTER 2024-10-07 10:39 | Outpatient (AMB) | payer MEDICARE, OTHER, SELFPAY ==
--- NOTE | 2024-10-07 10:42 | MHC.OFFVIS ---
Vital Signs 10/07/24 11:00 Height 5 ft 3 in Weight 156 lb 8.451 oz BMI 27.7 BP 147/78 H Blood Pressure Location Lt brachial Position Sitting Pulse 80 Intake Visit Reasons: ct scan results Intake Note: Vishnu presents in the office as a follow up for her CT scans. CC: States that she is just here for the results. Allergies No Known Allergies [No Known Allergies*] Allergy (Verified 10/07/24 10:45) HPI HPI ct scan results: Details: Patient is a 89-year-old female with PMH of hypertension, hyperlipidemia, arthritis, CKD and acid reflux. She presents today to follow up on CT. The scan revealed an abundance of stool, making it hard to view the colon clearly to identify any source of bleeding. [place] reported a single episode of rectal bleeding during our last visit and is currently experiencing constipation, which she manages with prune juice. She denies abdominal pain, nausea, or vomiting associated with constipation. [place] has a history of acid reflux, managed intermittently with famotidine. CT also revealed evidence of arterial plaque and possible coronary artery disease. Pt has prior hx of hyperlipidemia and was previously evaluated by vascular surgery (Dr. Phillips) for carotid disease, which she reports no further f/u recommended. No hx of cardiology eval. Pt currently prefers to defer further vascular/cardiac workup until GI issues are addressed, citing appointment fatigue. No current cardiopulmonary or focal symptoms. BP remains elevated despite ongoing management with nephrology (Dr. Pierre). [facility] Medical History (Updated 10/07/24 @ 16:57 by Shruti Ennis CNP) Abnormal finding on imaging Chronic constipation Mild acid reflux Acid reflux Bloody stool Arthritis Back pain Osteopenia Sciatica of left side Anemia Mild heartburn Diverticulosis Chronic renal disease Full dentures Hyperlipemia HTN (hypertension) Surgical History Hx of tonsillectomy Hx of cornea transplant Hx of right cataract extraction Hx of colonoscopy (~02/05/11) Hx of cornea transplant Family History Father No problems noted. Mother No problems noted. Brother No problems noted. Brother No problems noted. Brother No problems noted. Sister No problems noted. Sister No problems noted. Sister No problems noted. Sister No problems noted. Son No problems noted. Daughter No problems noted. Social History Household Members: Other Household Members Other:: son Housing: House Are you a primary team primary care physician to a significant other at home: No Do you presently have visiting nurse or other home services: No Comment: aware of trip hazard Patient Tobacco Use Status: Former Tobacco user Tobacco use type: Cigarette e-Cigarette/Vaping Use: Former Use service: No Current occupational status: retired Cognitive needs: Yes (WALKER) Hearing needs: No Vision needs: No Review of Systems Const Reports as per HPI ENT Reports as per HPI Card Reports as per HPI Resp Reports as per HPI GI Reports as per HPI, Denies abdominal pain, Denies nausea and Denies vomiting Reports as per HPI Physical Exam Vital Signs: BMI result Body Mass Index 27.7 Const General: healthy appearing, no acute distress and well developed Nutritional Appearance: well nourished Orientation/consciousness: patient oriented x3 HEENT Head: Yes normal to inspection, Yes normocephalic and Yes atraumatic Face and sinus: Yes normal facial exam Eyes General: appearance normal, both eyes and all related structures Neck Neck: Yes normal visual inspection Resp Effort & Inspection: normal respiratory effort, able to speak in complete sentences, no tracheal deviation and symmetric chest movement Auscultation: clear to auscultation bilaterally Cardio Jugular venous distension: no JVD Rate: regular rate Rhythm: regular rhythm Heart sounds: S1 normal heart sound present, S2 normal heart sound present, no gallops and no murmurs GI Inspection: Yes normal to inspection and No distended Palpation (GI): Soft to palpation, not firm, nontender and No hepatosplenomegaly present Auscultation: normal bowel sounds Neuro General: patient oriented x3 Gait exam (Neuro): Normal gait present Psych Appearance: grossly normal Mental Status: mental status grossly normal Speech and movement: Normal speech and movement present Affect: normal affect Attitude: cooperative Thought process: Normal thought process present Thought content: Normal thought content present Insight: Good insight present (Psych) Judgement: Good judgement present (Psych) Results Reviewed Results Reviewed: Date of Service: 10/01/24 Procedure(s): CT abdomen pelvis w IV con Accession Number(s): [id number] cc: Maeve Feldman MD; LoliShruti [facility]~ Report Number: [id number]: Total DLP = 361.00 mGy-cm EXAMINATION: CT ABDOMEN AND PELVIS WITH CONTRAST CLINICAL INFORMATION: Bloody stool. COMPARISON: None available. TECHNIQUE: Multidetector volumetric images were obtained from the superior aspect of the liver through the pubic symphysis following administration 85 mL of Omnipaque 350 intravenous contrast. Sagittal and coronal reformatted images were obtained on the technologist's workstation. Oral contrast: No This CT examination was performed using dose optimization techniques as appropriate, variously including the following: *Automated exposure control *Adjustment of mA and/or kV according to patient size (this includes techniques or standardized protocols for targeted exams where dose is matched to indication/reason for exam; i.e. extremities or head) *Use of iterative reconstruction technique DLP: 361 mGy centimeter. FINDINGS: LUNG BASES: No acute airspace disease. Centrilobular emphysematous type changes. LIVER, GALLBLADDER, AND BILIARY TREE: Liver measures 13 cm. Nodular surface. Decreased enhancement pattern. No focal mass. Dystrophic calcification adjacent to the falciform ligament. Portal veins, hepatic veins and intrahepatic portion of the IVC are patent. Intraluminal hyperdensity in a contracted gallbladder. No pericholecystic fluid collection or gallbladder wall thickening. Common bile duct measures 8 mm. No intrahepatic biliary ductal dilatation. PANCREAS: No focal lesion. No peripancreatic fluid collection. No main pancreatic ductal dilatation. SPLEEN: 8 cm. No focal lesion. ADRENAL GLANDS: There is a 1.4 cm hypodense nodule in the left adrenal gland. No nodular lesion right adrenal gland. KIDNEYS AND URETERS: Bilateral renal cortical thinning. Multifocal small cystic lesions throughout the renal parenchyma, bilaterally. No gross hydronephrosis or nephrolithiasis. BLADDER: Fluid-filled. GASTROINTESTINAL TRACT: Hiatal hernia, small to moderate-sized containing retained contrast in the distal esophagus. Abundant stool throughout the large intestine. Scattered diverticula in the left hemicolon. No intestinal obstruction pattern. No pneumatosis intestinalis. The appendix appears normal. No concentric wall thickening. No ascites. No pneumoperitoneum. No peripheral enhancing fluid collection, peritoneal cavity. ABDOMINAL WALL: Small fat-containing umbilical hernia. LYMPH NODES: Nonspecific prominent mesenteric and retroperitoneum. VASCULAR: Mixed plaques throughout the descending thoracic aorta abdominal aorta and iliac arteries without aneurysm or dissection. Segmental areas of narrowing/stenosis involving distal abdominal aorta with the Complete occlusion into the right common iliac artery. Calcified plaques in the origin of the mesenteric arteries and the main renal arteries. Calcified plaques in the coronary arteries no fully included in the [id number]. PELVIC VISCERA: No gross masses. OSSEOUS STRUCTURES: S-shaped curvature of the thoracolumbar spine. Multilevel spondylosis resulting in grade 1 anterolisthesis L4-5 with the central spinal canal and bilateral neuroforamina stenosis. Grade 1 retrolisthesis L5-S1. Focal 6 mm sclerotic lesion left hemisacrum, nonspecific. Osteopenia versus osteoporosis. No acute fracture. CT/CT abdomen pelvis w IV con IMPRESSION: Abundant stool within the large intestine. The exam is limited in detecting intraluminal pathology. Diverticular disease. Probable cholelithiasis. Concerning medical renal disease. Coronary artery disease and atherosclerosis disease. 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 1.4 cm nodular lesion left adrenal gland. Bilateral renal cysts. Hiatal hernia. Fleischner guidelines were followed. Electronically signed by: Arvin Mari MD 10/01/2024 09:57 AM EDT RP Assessment & Plan Assessment & Plan (1) Acid reflux: Code(s): K21.9 - Gastro-esophageal reflux disease without esophagitis Category: Medical Qualifiers: Esophagitis presence: esophagitis presence not specified Qualified Code(s): K21.9 - Gastro-esophageal reflux disease without esophagitis Plan: Intermittent sx, controlled with PRN famotidine. Additional Tests:proceed with endoscopy as previously discussed- upper endoscopy Medications: Continue famotidine PRN. Education on GERD prevention : -Advised against heavy meals; encouraged small, frequent meals instead of large ones. - Instructed to remain upright for 2?3 hours after eating. - Advised to avoid late-night meals, spicy foods, caffeine, alcohol, known dietary triggers, and tight-fitting clothing. - Emphasis placed on gradual implementation of lifestyle changes to improve adherence and symptom control. (2) Chronic constipation: Code(s): K59.09 - Other constipation Category: Medical Plan: Persistent stool burden on CT despite prune juice; ongoing symptoms. Additional Tests: proceed with endoscopy as previsouly discussed- upper endoscopy/colonoscopy Medications: Start Miralax daily; continue prune juice as tolerated (reduce if loose stools). Lifestyle Modifications: Encourage high-fiber diet, adequate hydration. (3) Abnormal finding on imaging: Code(s): R93.89 - Abnormal findings on diagnostic imaging of other specified body structures Category: Medical Plan: CT shows probable cholelithiasis, concerning medical renal disease, coronary artery disease and atherosclerosis disease, probable nearly complete occlusion right common iliac artery secondary to a calcified plaque, 1.4 cm nodular lesion left adrenal gland, Bilateral renal cysts. hx hyperlipidemia; no current cardiac sx. Established with nephrology with upcoming imaging/follow up Additional Tests: Cardiology/vascular referral discussed; pt prefers to defer until GI workup complete. In regards to probable cholelithiasis, shared decision to monitor symptoms closely given she is asymptomatic. Medications: Continue current regimen for hyperlipidemia/HTN. Lifestyle Modifications: Reinforce heart-healthy diet, medication adherence. Follow-Up: Coordinate with PCP (Dr. Feldman); revisit referral if sx develop or pt desires. (4) HTN (hypertension): Code(s): I10 - Essential (primary) hypertension Category: Medical Qualifiers: Hypertension type: primary hypertension Qualified Code(s): I10 - Essential (primary) hypertension Plan: Ongoing nephrology management; BP elevated in office. Additional Tests: Ongoing labs/monitoring per nephrology + as above Medications: Continue current antihypertensives. Lifestyle Modifications: As per nephrology. Follow-Up: Continue nephrology f/u. Plan Follow-up after procedure are sooner as needed Time: I spent a total of 45 minutes on the date of encounter which includes: Preparing to see the patient (reviewed previous documentation, test results and medical history) Performing a medically appropriate exam and/or evaluation Ordering medications, tests, and procedures Documenting clinical information in the health record Medications: New polyethylene glycol 3350 (Miralax) Take 17G (one cap full) daily with 8oz of water 17 grams PO DAILY 30 days 238 grams 2RF constipation Coding Level of Care Code Established Pt Est Pt Level 4 (48758) Patient Type Established Diagnoses Gastroesophageal reflux disease, unspecified whether esophagitis present K21.9 Esophagitis presence: esophagitis presence not specified Chronic constipation K59.09 Abnormal finding on imaging R93.89 Primary hypertension I10 Hypertension type: primary hypertension
[2024-10-07 11:00] VITALS: BP 147/78; PULSE 80; BMI 27.7
== END 2024-10-07 11:17 | disposition home or self-care (01) ==
LOC: HO.HGI 10:39
PROVIDERS: PCP Internal Medicine; Visit Provider Nurse Practitioner Family
DX: K21.9 Gastro-esophageal reflux disease without esophagitis (principal); K59.09 Other constipation; R93.89 Abnormal findings on diagnostic imaging of other specified body structures; I10 Essential (primary) hypertension
CPT/HCPCS: 99214

== ENCOUNTER 2024-10-12 09:34 | Outpatient (REF) | payer MEDICARE, OTHER, SELFPAY ==
--- NOTE | ~2024-10-12 | US_ITS ---
EXAMINATION: US RETROPERITONEAL LIMITED (RENAL ONLY) CLINICAL INFORMATION: Chronic kidney disease, stage 3a. Rule out renal artery stenosis. COMPARISON: None available. Correlation made with CT abdomen and pelvis 10/01/2024. TECHNIQUE: Ultrasound along with color Doppler imaging and spectral analysis was performed of the kidneys. FINDINGS: RENAL MEASUREMENTS: Right: 9.6 x 5.1 x 5.4 cm (Sag x AP x TV); diffuse mild renal cortical thinning. Small upper pole simple cyst measuring 1.2 cm. Left: 9.7 x 4.1 x 4.4 cm (Sag x AP x TV); diffuse mild renal cortical thinning. Numerous small upper and lower pole cysts, the largest measuring 0.8 cm in the lateral lower pole. 0.3 cm nonobstructing calculus in the midpole. No hydronephrosis. No suspicious masses. Spectral Doppler analysis: Right Kidney: -Peak systolic velocity in the proximal right renal artery = 45.2 cm/s. Normal waveforms. -Peak systolic velocity in the mid right renal artery = 294 cm/s. Normal waveforms. -Peak systolic velocity in the distal right renal artery = 186 cm/s. Normal waveforms. -Patent right renal vein. -Upper pole interlobar artery resistive index of 0.85. -Midpole interlobar artery resistive index of 0.78. -Lower pole interlobar artery resistive index of 0.87. RAR right = 6.1 Left Kidney: -Peak systolic velocity in the proximal left renal artery = 188 cm/s. Normal waveforms. -Peak systolic velocity in the mid left renal artery = 114 cm/s. Normal waveforms. -Peak systolic velocity in the distal left renal artery = 114 cm/s. Normal waveforms. -Patent left renal vein. -Upper pole interlobar artery resistive index of 0.83. -Mid pole interlobar artery resistive index of 0.84. -lower pole interlobar artery resistive index of 0.86. RAR left = 3.9 Aorta: -Peak systolic velocity = 48.1 cm/s. US/US renal doppler IMPRESSION: 1. Bilateral renal parenchymal thinning, with numerous tiny renal cysts left greater than right, and a 3 mm nonobstructing mid pole calculus in the left kidney. Findings suggest medical renal disease. No hydronephrosis or mass. 2. Bilateral renal artery stenosis, greater than 60% bilaterally, suggested based upon peak systolic velocities, hilar interlobar resistive indices, and elevated RAR's bilaterally. Electronically signed by: Silvestre Gordon MD 10/12/2024 10:39 AM EDT
--- OUTSIDE RECORDS SUMMARY | 2024-10-12 10:42 | XMS_ITS | Encounter Summary ---
Author Organization [facility] Address [address] [facility] [facility] [address] [place] [address] Phone Care Team Providers Care Welt Slasher Name Role Phone Torrey Rodriguez MD Primary Care Provider Reason for Visit * Reason Comments Med Refill Encounter Details Date Type Department Care Team (Late st Contact Info) Description 10/09/2024 Refill [facility] [address] [facility] [address] [place] [phone] Mohinder Aragon MD [address] [facility] [address] [place] [address] Social History Tobacco Use Types Packs/Day Years Used Date Smoking Tobacco: Never Smokeless Tobacco: Never Alcohol Use Standard Drinks/Week Comments No 0 (1 standard drink = 0.6 oz pur e alcohol) Comments Unknown Sex and Gender Information Value Date Recorded Sex Assigned at Not on file Legal Sex Female 5:09 PM EST Gender Identity Not on file Sexual Orientation Not on file documented as of this encounter Plan of Treatment Not on file documented as of this encounter Visit Diagnoses Not on filedocumented in this encounter Care Teams Welt Slasher Relationship Specialty Start Date End Date Torrey Rodriguez MD [address] [place] PCP - General 05/22/20 documented as of this encounter
== END 2024-10-12 09:35 | disposition home or self-care (01) ==
LOC: HO.US 09:34
PROVIDERS: PCP Internal Medicine; Visit Provider Internal Medicine Nephrology
DX: I12.9 Hypertensive chronic kidney disease with stage 1 through stage 4 chronic kidney disease, or unspecified chronic kidney disease (principal); N18.31 Chronic kidney disease, stage 3a; I70.1 Atherosclerosis of renal artery
CPT/HCPCS: 76775; 93975

== ENCOUNTER → 2024-10-12 09:38 | Outpatient (BNV) | payer MEDICARE, OTHER, SELFPAY | PROVIDERS: PCP Internal Medicine; Visit Provider Radiology Diagnostic Radiology | DX: I70.1 Atherosclerosis of renal artery (principal); N28.89 Other specified disorders of kidney and ureter; N28.1 Cyst of kidney, acquired; N18.6 End stage renal disease | CPT/HCPCS: 76775; 93975 ==

== ENCOUNTER 2024-10-13 11:33 | Outpatient (AMB) | payer MEDICARE, OTHER, SELFPAY ==
--- NOTE | 2024-10-13 11:48 | HO.NEPHOV ---
Vital Signs 10/13/24 11:49 Height 5 ft 3 in Weight 157 lb BMI 27.8 BP 170/60 H Blood Pressure Location Lt brachial Position Sitting Pulse 77 Pulse Source Pulse Oximeter Pulse Oximetry (%) 96 Oxygen Delivery Method Room Air Intake Visit Reasons: [address] Wilburn [employer] Shift Supervisor Required: No Accompanied by: Self / Same As Patient Allergies No Known Allergies [No Known Allergies*] Allergy (Verified 10/13/24 11:49) HPI Comments Details: [place] was seen in follow-up for hypertension and mild chronic kidney disease. Her BP remains labile . 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 She does not have any orthostatic symptoms, chest pain, shortness of breath, paroxysmal nocturnal dyspnea, orthopnea, pedal edema, hematuria or any ongoing active systemic complaints. She is compliant with a low-sodium diet and her medications. She monitors her blood pressure at home and has not been at goal. She is known to have vascular disease. She has bilateral carotid artery stenosis which has been of closely followed up as well. She had a 24 hour BP monitor which showed uncontrolled BP and medications has been adjusted [facility] Medical History (Updated 10/13/24 @ 14:34 by Maeve Feldman MD) Abnormal finding on imaging Chronic constipation Mild acid reflux Acid reflux Bloody stool Arthritis Back pain Osteopenia Sciatica of left side Anemia Mild heartburn Diverticulosis Chronic renal disease Full dentures Hyperlipemia HTN (hypertension) Surgical History Hx of tonsillectomy Hx of cornea transplant Hx of right cataract extraction Hx of colonoscopy (~02/05/11) Hx of cornea transplant Family History Father No problems noted. Mother No problems noted. Brother No problems noted. Brother No problems noted. Brother No problems noted. Sister No problems noted. Sister No problems noted. Sister No problems noted. Sister No problems noted. Son No problems noted. Daughter No problems noted. Social History Household Members: Other Household Members Other:: son Housing: House Are you a primary resident care aid to a significant other at home: No Do you presently have visiting nurse or other home services: No Comment: aware of trip hazard Patient Tobacco Use Status: Former Tobacco user Tobacco use type: Cigarette e-Cigarette/Vaping Use: Former Use service: No Current occupational status: retired Cognitive needs: Yes (WALKER) Hearing needs: No Vision needs: No Review of Systems Const All systems reviewed & are unremarkable except as noted in HPI and below Physical Exam Vital Signs: Last Vital Signs Pulse 77 10/13/24 11:49 BP 170/60 H 10/13/24 11:49 Pulse Ox 96 10/13/24 11:49 Oxygen Delivery Method Room Air 10/13/24 11:49 BMI result Body Mass Index 27.8 Const General: comfortable and no acute distress Orientation/consciousness: patient oriented x3 HEENT Head: Yes normocephalic Mouth: Normal oral and palatal mucosa present Eyes EOM: EOMs intact bilaterally Neck Neck: Yes supple Resp Auscultation: clear to auscultation bilaterally Cardio Jugular venous distension: no JVD Rate: regular rate GI Palpation (GI): Soft to palpation Auscultation: normal bowel sounds General: Yes no CVA tenderness Back/Spine/Pelvis Back: no CVA tenderness Skin General skin exam: no rashes or lesions noted Neuro General: patient oriented x3 and moves all extremities Extrem General: Yes no pedal edema Results Reviewed Nephrology Results: Sodium 143 mmol/L (135-145) 10/07/24 Potassium 4.7 mmol/L (3.3-5.1) 10/07/24 Chloride 113 mmol/L (96-108) H 10/07/24 Carbon Dioxide 21 mmol/L (22-29) L 10/07/24 BUN 25 mg/dL (9-16) H 10/07/24 Creatinine 1.31 mg/dL (0.5-1.4) 10/07/24 Renal US 10/12/24 Assessment & Plan Assessment & Plan (1) CKD stage 3a, GFR 45-59 ml/min: Code(s): N18.31 - Chronic kidney disease, stage 3a Category: Medical (2) HTN (hypertension): Code(s): I10 - Essential (primary) hypertension Category: Medical Qualifiers: Hypertension type: primary hypertension Qualified Code(s): I10 - Essential (primary) hypertension Plan [place] has longstanding hypertension which is better controlled on current medication regimen. She is history of vascular disease. She has bilateral carotid artery and B/L renal artery stenosis. She checks her blood pressure at home. He has not known to have any proteinuria. Her renal functions are stable. She has no retinopathy, clinical signs of heart failure. She is on statins. Her serum potassium is normal. She does not consume excess sodium diet. She should maintain good hydration and minimize or avoid nonsteroidal anti-inflammatories. I increased her Spironolactone to 25 mg daily. I ordered F/U labs. I did not make any other medication changes today. Answered all questions. Orders: Orders Electrolytes 2 Weeks N18.31 - Chronic kidney disease, stage 3a Medications: Changed From spironolactone 12.5 mg (1/2 x 25 mg) PO DAILY 30 days 15 tabs 3RF To spironolactone 25 mg PO DAILY 90 days 90 tabs 3RF From nifedipine ER 120 mg PO DAILY To nifedipine ER 120 mg (2 x 60 mg) PO DAILY 90 days 180 tabs 4RF Coding Level of Care Code Est Pt Level 4 (72270) Diagnoses CKD stage 3a, GFR 45-59 ml/min N18.31 Primary hypertension I10 Hypertension type: primary hypertension
[2024-10-13 11:49] VITALS: BP 170/60; PULSE 77; O2SAT 96; BMI 27.8
--- OUTSIDE RECORDS SUMMARY | 2024-10-13 12:27 | XMS_ITS | Encounter Summary ---
Author Organization [facility] Address [address] [facility] [address] [place] [address] Phone Care Team Providers Care Hot Braider Name Role Phone Torrey Rodriguez MD Primary Care Provider [phone] Reason for Visit * Reason Comments Med Refill Encounter Details Date Type Department Care Team (Late st Contact Info) Description 10/09/2024 Refill [facility] [address] [facility] [address] [place] [phone] Mohinder Aragon MD [address] [facility] [address] [place] [address] Social History Tobacco Use Types [...] on filedocumented in this encounter Care Teams Hot Braider Relationship Specialty Start Date End Date Torrey Rodriguez MD [address] [facility] [place] PCP - General 05/22/20 documented as of this encounter
== END 2024-10-13 12:14 | disposition home or self-care (01) ==
LOC: HO.HKA 11:34
PROVIDERS: PCP Internal Medicine; Visit Provider Internal Medicine Nephrology
DX: N18.31 Chronic kidney disease, stage 3a (principal); I10 Essential (primary) hypertension
CPT/HCPCS: 99214

== ENCOUNTER → 2024-10-13 11:33 | Outpatient (BNVA) | payer MEDICARE, OTHER, SELFPAY | PROVIDERS: PCP Internal Medicine; Visit Provider Internal Medicine Nephrology | DX: I12.9 Hypertensive chronic kidney disease with stage 1 through stage 4 chronic kidney disease, or unspecified chronic kidney disease (principal); N18.31 Chronic kidney disease, stage 3a | CPT/HCPCS: 99212 ==

== ENCOUNTER 2024-10-22 08:11 | Outpatient (REF) | payer MEDICARE, OTHER, SELFPAY ==
--- OUTSIDE RECORDS SUMMARY | 2024-10-22 08:14 | XMS_ITS | Encounter Summary ---
Author Organization [facility] Address [address] [facility] [address] [place] [address] Phone Care Team Providers Care Brake Lining Finisher Asbestos Name Role Phone Torrey Rodriguez MD Primary Care Provider [phone] Reason for Visit * Reason Comments Med Refill Encounter Details Date Type Department Care Team (Late st Contact Info) Description 10/09/2024 Refill [facility] [address] [facility] [address] [place] [phone] Mohinder Aragon MD [address] [facility] [address] [place] [address] Social History Tobacco Use Types [...] on filedocumented in this encounter Care Teams Brake Lining Finisher Asbestos Relationship Specialty Start Date End Date Torrey Rodriguez MD [address] [place] PCP - General 05/22/20 documented as of this encounter
[2024-10-22 11:09] LABS: Anion Gap 14 (12-20); Blood Urea Nitrogen 33 mg/dL (9-16); Calcium 10.1 mg/dL (8.4-10.2); Carbon Dioxide 19 mmol/L (22-29); Chloride 111 mmol/L (96-108); Estimated Glomerular Filt Rate 31; Sodium 139 mmol/L (135-145)
== END 2024-10-22 08:12 | disposition home or self-care (01) ==
LOC: HO.10HDL 08:11
PROVIDERS: Visit Provider Internal Medicine Nephrology
DX: I12.9 Hypertensive chronic kidney disease with stage 1 through stage 4 chronic kidney disease, or unspecified chronic kidney disease (principal); N18.2 Chronic kidney disease, stage 2 (mild)
CPT/HCPCS: 36415; 80051; 82310; 82565; 84520

== ENCOUNTER 2024-10-27 09:40 | Outpatient (AMB) | payer MEDICARE, OTHER, SELFPAY ==
--- NOTE | 2024-10-27 10:04 | HO.NEPHOV ---
Vital Signs 10/27/24 10:06 Height 5 ft 3 in Weight 155 lb 2 oz BMI 27.5 BP 174/70 H Blood Pressure Location Lt brachial Position Sitting Pulse 81 Pulse Source Pulse Oximeter Pulse Oximetry (%) 98 Oxygen Delivery Method Room Air Intake Visit Reasons: 2 weeks fu-[facility] Ammonia Refrigeration Worker Required: No Accompanied by: Self / Same As Patient Allergies No Known Allergies (No Known Allergies*) Allergy (Verified 10/27/24 10:06) HPI Comments Details: [place] was seen in follow-up for hypertension and mild chronic kidney disease. Her BP remains labile . 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 She does not have any orthostatic symptoms, chest pain, shortness of breath, paroxysmal nocturnal dyspnea, orthopnea, pedal edema, hematuria or any ongoing active systemic complaints. She is compliant with a low-sodium diet and her medications. She monitors her blood pressure at home and has not been at goal. She is known to have vascular disease. She has bilateral carotid artery stenosis which has been of closely followed up as well. She had a 24 hour BP monitor which showed uncontrolled BP and medications has been adjusted [facility] Medical History (Updated 10/13/24 @ 14:34 by Maeve Feldman MD) Abnormal finding on imaging Chronic constipation Mild acid reflux Acid reflux Bloody stool Arthritis Back pain Osteopenia Sciatica of left side Anemia Mild heartburn Diverticulosis Chronic renal disease Full dentures Hyperlipemia HTN (hypertension) Surgical History Hx of tonsillectomy Hx of cornea transplant Hx of right cataract extraction Hx of colonoscopy (~02/05/11) Hx of cornea transplant Family History Father No problems noted. Mother No problems noted. Brother No problems noted. Brother No problems noted. Brother No problems noted. Sister No problems noted. Sister No problems noted. Sister No problems noted. Sister No problems noted. Son No problems noted. Daughter No problems noted. Social History Household Members: Other Household Members Other:: son Housing: House Are you a primary progressive care unit registered nurse to a significant other at home: No Do you presently have visiting nurse or other home services: No Comment: aware of trip hazard Patient Tobacco Use Status: Former Tobacco user Tobacco use type: Cigarette e-Cigarette/Vaping Use: Former Use service: No Current occupational status: retired Cognitive needs: Yes (WALKER) Hearing needs: No Vision needs: No Review of Systems Const All systems reviewed & are unremarkable except as noted in HPI and below Physical Exam Const General: comfortable and no acute distress Orientation/consciousness: patient oriented x3 HEENT Head: Yes normocephalic Mouth: Normal oral and palatal mucosa present Eyes EOM: EOMs intact bilaterally Neck Neck: Yes supple Resp Auscultation: clear to auscultation bilaterally Cardio Jugular venous distension: no JVD Rate: regular rate GI Palpation (GI): Soft to palpation Auscultation: normal bowel sounds General: Yes no CVA tenderness Back/Spine/Pelvis Back: no CVA tenderness Skin General skin exam: no rashes or lesions noted Neuro General: patient oriented x3 and moves all extremities Extrem General: Yes no pedal edema Results Reviewed Nephrology Results: Sodium, (135-145) 139 mmol/L 10/22/24 Potassium, (3.3-5.1) 5.0 mmol/L 10/22/24 Chloride, (96-108) 111 mmol/L H 10/22/24 Carbon Dioxide, (22-29) 19 mmol/L L 10/22/24 BUN, (9-16) 33 mg/dL H 10/22/24 Creatinine, (0.5-1.4) 1.57 mg/dL H 10/22/24 Calcium, (8.4-10.2) 10.1 mg/dL Δ 10/22/24 Renal US 10/12/24 Assessment & Plan Assessment & Plan (1) HTN (hypertension): Code(s): I10 - Essential (primary) hypertension Category: Medical Qualifiers: Hypertension type: primary hypertension Qualified Code(s): I10 - Essential (primary) hypertension (2) Adrenal nodule: Code(s): E27.9 - Disorder of adrenal gland, unspecified Category: Medical (3) CKD stage 3a, GFR 45-59 ml/min: Code(s): N18.31 - Chronic kidney disease, stage 3a Category: Medical Plan Virginia has longstanding hypertension which is better controlled on current medication regimen. She is history of vascular disease. She has bilateral carotid artery and B/L renal artery stenosis. She checks her blood pressure at home. He has not known to have any proteinuria. Her renal functions are stable. She has no retinopathy, clinical signs of heart failure. She is on statins. Her serum potassium is normal. She does not consume excess sodium diet. She should maintain good hydration and minimize or avoid nonsteroidal anti-inflammatories. I ordered F/U labs. She may be a candidate for renal vein ablation study or B/L renal artery stenting. I shall decide on this with subsequent visits. I did not make any other medication changes today. Answered all questions. Orders: Orders Creatinine 1 Month E27.9 - Disorder of adrenal gland, unspecified, I10 - Essential (primary) hypertension, N18.31 - Chronic kidney disease, stage 3a Blood Urea Nitrogen 1 Month E27.9 - Disorder of adrenal gland, unspecified, I10 - Essential (primary) hypertension, N18.31 - Chronic kidney disease, stage 3a Electrolytes 1 Month E27.9 - Disorder of adrenal gland, unspecified, I10 - Essential (primary) hypertension, N18.31 - Chronic kidney disease, stage 3a Medications: Changed From clonidine HCl 0.1 mg PO ONCE To clonidine HCl 0.1 mg PO ONCE 90 tabs 3RF 90 days Refilled spironolactone 25 mg PO DAILY 90 tabs 3RF 90 days Coding Level of Care Code Est Pt Level 4 (46925) Diagnoses Primary hypertension I10 Hypertension type: primary hypertension Adrenal nodule E27.9 CKD stage 3a, GFR 45-59 ml/min N18.31
[2024-10-27 10:06] VITALS: BP 174/70; PULSE 81; O2SAT 98; BMI 27.5
--- OUTSIDE RECORDS SUMMARY | 2024-10-27 10:40 | XMS_ITS | Encounter Summary ---
Author Organization [facility] Address [address] [facility] [address] [place] [address] Phone Care Team Providers Care Seafood And Service Meat Manager Name Role Phone Torrey Rodriguez MD Primary Care Provider [phone] Reason for Visit * Reason Comments Med Refill Encounter Details Date Type Department Care Team (Late st Contact Info) Description 10/09/2024 Refill [facility] [address] [facility] [address] [place] [phone] Mohinder Aragon MD [address] [facility] [address] [place] [address] Social History Tobacco Use Types [...] on filedocumented in this encounter Care Teams Seafood And Service Meat Manager Relationship Specialty Start Date End Date Torrey Rodriguez MD [address] [place] PCP - General 05/22/20 documented as of this encounter
== END 2024-10-27 10:27 | disposition home or self-care (01) ==
LOC: HO.HKA 09:41
PROVIDERS: PCP Internal Medicine; Visit Provider Internal Medicine Nephrology
DX: I10 Essential (primary) hypertension (principal); E27.9 Disorder of adrenal gland, unspecified; N18.31 Chronic kidney disease, stage 3a
CPT/HCPCS: 99214

== ENCOUNTER → 2024-10-27 09:40 | Outpatient (BNVA) | payer MEDICARE, OTHER, SELFPAY | PROVIDERS: PCP Internal Medicine; Visit Provider Internal Medicine Nephrology | DX: I12.9 Hypertensive chronic kidney disease with stage 1 through stage 4 chronic kidney disease, or unspecified chronic kidney disease (principal); N18.31 Chronic kidney disease, stage 3a; E27.9 Disorder of adrenal gland, unspecified | CPT/HCPCS: 99212 ==

== ENCOUNTER 2024-11-16 08:05 | Outpatient (REF) | payer MEDICARE, OTHER, SELFPAY ==
--- OUTSIDE RECORDS SUMMARY | 2024-11-16 08:11 | XMS_ITS | Encounter Summary ---
Author Organization [facility] Address [address] [facility] [address] [place] [address] Phone Care Team Providers Care Escrow Manager Name Role Phone Torrey Rodriguez MD Primary Care Provider [phone] Reason for Visit * Reason Comments Med Refill Encounter Details Date Type Department Care Team (Late st Contact Info) Description 10/09/2024 Refill [facility] [address] [facility] [address] [place] [phone] Mohinder Aragon MD [address] [facility] [address] [place] [address] Social History Tobacco Use Types [...] on filedocumented in this encounter Care Teams Escrow Manager Relationship Specialty Start Date End Date Torrey Rodriguez MD [address] [place] PCP - General 05/22/20 documented as of this encounter
[2024-11-16 10:25] LABS: Anion Gap 13 (12-20); Blood Urea Nitrogen 39 mg/dL (9-16); Carbon Dioxide 19 mmol/L (22-29); Chloride 112 mmol/L (96-108); Estimated Glomerular Filt Rate 32; Potassium 4.4 mmol/L (3.3-5.1); Sodium 140 mmol/L (135-145)
== END 2024-11-16 08:06 | disposition home or self-care (01) ==
LOC: HO.10HDL 08:05
PROVIDERS: Visit Provider Internal Medicine Nephrology
DX: I12.9 Hypertensive chronic kidney disease with stage 1 through stage 4 chronic kidney disease, or unspecified chronic kidney disease (principal); N18.31 Chronic kidney disease, stage 3a; E27.9 Disorder of adrenal gland, unspecified
CPT/HCPCS: 36415; 80051; 82565; 84520

== ENCOUNTER 2024-11-24 09:46 | Outpatient (AMB) | payer MEDICARE, OTHER, SELFPAY ==
--- NOTE | 2024-11-24 09:59 | HO.NEPHOV ---
Vital Signs 11/24/24 10:00 Height 5 ft 3 in Weight 155 lb BMI 27.5 BP 134/60 Blood Pressure Location Rt brachial Position Sitting Pulse 78 Pulse Source Pulse Oximeter Pulse Oximetry (%) 98 Oxygen Delivery Method Room Air Intake Visit Reasons: 1 mo fu w/ labs-Conf Veterinary Receptionist Required: No Accompanied by: Self / Same As Patient Allergies No Known Allergies (No Known Allergies*) Allergy (Verified 11/24/24 10:00) HPI Comments Details: [place] was seen in follow-up for hypertension and mild chronic kidney disease. Her BP is better controlled now . 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 She does not have any orthostatic symptoms, chest pain, shortness of breath, paroxysmal nocturnal dyspnea, orthopnea, pedal edema, hematuria or any ongoing active systemic complaints. She is compliant with a low-sodium diet and her medications. She monitors her blood pressure at home and has not been at goal. She is known to have vascular disease. She has bilateral carotid artery stenosis which has been of closely followed up as well. She had a 24 hour BP monitor which showed uncontrolled BP and medications has been adjusted [facility] Medical History (Updated 10/13/24 @ 14:34 by Maeve Feldman MD) Abnormal finding on imaging Chronic constipation Mild acid reflux Acid reflux Bloody stool Arthritis Back pain Osteopenia Sciatica of left side Anemia Mild heartburn Diverticulosis Chronic renal disease Full dentures Hyperlipemia HTN (hypertension) Surgical History Hx of tonsillectomy Hx of cornea transplant Hx of right cataract extraction Hx of colonoscopy (~02/05/11) Hx of cornea transplant Family History Father No problems noted. Mother No problems noted. Brother No problems noted. Brother No problems noted. Brother No problems noted. Sister No problems noted. Sister No problems noted. Sister No problems noted. Sister No problems noted. Son No problems noted. Daughter No problems noted. Social History Household Members: Other Household Members Other:: son Housing: House Are you a primary acute care assistant to a significant other at home: No Do you presently have visiting nurse or other home services: No Comment: aware of trip hazard Patient Tobacco Use Status: Former Tobacco user Tobacco use type: Cigarette e-Cigarette/Vaping Use: Former Use service: No Current occupational status: retired Cognitive needs: Yes (WALKER) Hearing needs: No Vision needs: No Review of Systems Const All systems reviewed & are unremarkable except as noted in HPI and below Physical Exam Vital Signs: Last Vital Signs Pulse 78 11/24/24 10:00 BP 176/60 H 11/24/24 10:00 Pulse Ox 98 11/24/24 10:00 Oxygen Delivery Method Room Air 11/24/24 10:00 BMI result Body Mass Index 27.5 Const General: comfortable and no acute distress Orientation/consciousness: patient oriented x3 HEENT Head: Yes normocephalic Mouth: Normal oral and palatal mucosa present Eyes EOM: EOMs intact bilaterally Neck Neck: Yes supple Resp Auscultation: clear to auscultation bilaterally Cardio Jugular venous distension: no JVD Rate: regular rate GI Palpation (GI): Soft to palpation Auscultation: normal bowel sounds General: Yes no CVA tenderness Back/Spine/Pelvis Back: no CVA tenderness Skin General skin exam: no rashes or lesions noted Neuro General: patient oriented x3 and moves all extremities Extrem General: Yes no pedal edema Results Reviewed Nephrology Results: Sodium, (135-145) 140 mmol/L 11/16/24 Potassium, (3.3-5.1) 4.4 mmol/L 11/16/24 Chloride, (96-108) 112 mmol/L H 11/16/24 Carbon Dioxide, (22-29) 19 mmol/L L 11/16/24 BUN, (9-16) 39 mg/dL H 11/16/24 Creatinine, (0.5-1.4) 1.54 mg/dL H 11/16/24 Calcium, (8.4-10.2) 10.1 mg/dL Δ 10/22/24 Renal US 10/12/24 Assessment & Plan Assessment & Plan (1) HTN (hypertension): Code(s): I10 - Essential (primary) hypertension Category: Medical Qualifiers: Hypertension type: primary hypertension Qualified Code(s): I10 - Essential (primary) hypertension (2) CKD stage 3a, GFR 45-59 ml/min: Code(s): N18.31 - Chronic kidney disease, stage 3a Category: Medical Plan [place] has longstanding hypertension which is better controlled on current medication regimen. She is history of vascular disease. She has bilateral carotid artery and B/L renal artery stenosis. She checks her blood pressure at home. He has not known to have any proteinuria. Her renal functions are stable. She has no retinopathy, clinical signs of heart failure. She is on statins. Her serum potassium is normal. She does not consume excess sodium diet. She should maintain good hydration and minimize or avoid nonsteroidal anti-inflammatories. I increased her Spironolactone to 50 mg daily. I ordered F/U labs. She may be a candidate for renal vein ablation study or B/L renal artery stenting. I shall decide on this with subsequent visits. I did not make any other medication changes today. Answered all questions. Orders: Orders Electrolytes 1 Month I10 - Essential (primary) hypertension, N18.31 - Chronic kidney disease, stage 3a Blood Urea Nitrogen 1 Month I10 - Essential (primary) hypertension, N18.31 - Chronic kidney disease, stage 3a Creatinine 1 Month I10 - Essential (primary) hypertension, N18.31 - Chronic kidney disease, stage 3a Medications: Changed From spironolactone 25 mg PO DAILY 90 days 90 tabs 3RF To spironolactone 50 mg PO DAILY 90 tabs 3RF 90 days Coding Level of Care Code Est Pt Level 4 (81742) Diagnoses Primary hypertension I10 Hypertension type: primary hypertension CKD stage 3a, GFR 45-59 ml/min N18.31
[2024-11-24 10:00] VITALS: BP 134/60; PULSE 78; O2SAT 98; BMI 27.5
--- OUTSIDE RECORDS SUMMARY | 2024-11-24 10:21 | XMS_ITS | Encounter Summary ---
Author Organization [facility] Address [address] [facility] [address] [place] [address] Phone Care Team Providers Care Tank House Operator Helper Name Role Phone Torrey Rodriguez MD Primary Care Provider [phone] Reason for Visit * Reason Comments Med Refill Encounter Details Date Type Department Care Team (Late st Contact Info) Description 10/09/2024 Refill [facility] [address] [facility] [address] [place] [phone] Mohinder Aragon MD [address] [facility] [address] [place] [address] Social History Tobacco Use Types [...] on filedocumented in this encounter Care Teams Tank House Operator Helper Relationship Specialty Start Date End Date Torrey Rodriguez MD [address] [place] PCP - General 05/22/20 documented as of this encounter
== END 2024-11-24 10:25 | disposition home or self-care (01) ==
LOC: HO.HKA 09:47
PROVIDERS: PCP Internal Medicine; Visit Provider Internal Medicine Nephrology
DX: I10 Essential (primary) hypertension (principal); N18.31 Chronic kidney disease, stage 3a
CPT/HCPCS: 99214

== ENCOUNTER → 2024-11-24 09:46 | Outpatient (BNVA) | payer MEDICARE, OTHER, SELFPAY | PROVIDERS: PCP Internal Medicine; Visit Provider Internal Medicine Nephrology | DX: I12.9 Hypertensive chronic kidney disease with stage 1 through stage 4 chronic kidney disease, or unspecified chronic kidney disease (principal); N18.31 Chronic kidney disease, stage 3a | CPT/HCPCS: 99212 ==

== ENCOUNTER 2024-12-20 08:11 | Outpatient (REF) | payer MEDICARE, OTHER, SELFPAY ==
--- OUTSIDE RECORDS SUMMARY | 2024-12-20 08:26 | XMS_ITS | Clinical Summary ---
Author Organization [facility] Address [address] [place] [address] Phone Care Team Providers Care Printing Estimator Name Role Phone Torrey Rodriguez MD Primary Care Provider [phone] Allergies No known active allergies Medications acetaminophen [...] Hypertensive disorder 03/24/2012 Overview (09/28/2020): Hypertensive disorder Encounters Date Type Department Care Team Description 10/09/2024 Refill [facility] [address] [facility] [address] [place] [address] Mohinder Aragon MD from Last 3 Months Immunizations Immunization Administration Dates Next Due Pneumococcal [...] 2 - PCV) 07/10/2013 07/10/2012 Influenza Vaccine (#1) 2025 Pneumococcal Vaccine: Peds ( 0 to 5 Years) and At-Risk Patients (6 to 49 Years) Discontinued 07/10/2012 Hepatitis B Vaccine Aged Out No longe r eligible based on patient's age to complete this topic Insurance Member Subscriber Plan / Payer (Ef fective 2015-Present) Name:Virginia Aguilar Relation to Subscriber:Self Name:Virginia Aguilar Payer ID:Not on file Type:Not on file Address: [address] [id number] Medicare [place] [id number] [place] [id number] Care Teams Printing Estimator Relationship Specialty Start Date End Date Torrey Rodriguez MD [address] [place] [address] [address] [place] PCP - General 05/22/20
[2024-12-20 10:31] LABS: Anion Gap 11 (12-20); Blood Urea Nitrogen 37 mg/dL (9-16); Carbon Dioxide 20 mmol/L (22-29); Chloride 113 mmol/L (96-108); Estimated Glomerular Filt Rate 33; Potassium 5.1 mmol/L (3.3-5.1); Sodium 139 mmol/L (135-145)
== END 2024-12-20 08:12 | disposition home or self-care (01) ==
LOC: HO.10HDL 08:11
PROVIDERS: Visit Provider Internal Medicine Nephrology
DX: I12.9 Hypertensive chronic kidney disease with stage 1 through stage 4 chronic kidney disease, or unspecified chronic kidney disease (principal); N18.31 Chronic kidney disease, stage 3a
CPT/HCPCS: 36415; 80051; 82565; 84520

== ENCOUNTER 2024-12-29 10:47 | Outpatient (AMB) | payer MEDICARE, OTHER, SELFPAY ==
--- NOTE | 2024-12-29 10:55 | HO.NEPHOV ---
Vital Signs 12/29/24 10:57 Height 5 ft 3 in Weight 151 lb 6 oz BMI 26.8 BP 170/60 H Blood Pressure Location Rt brachial Position Sitting Pulse 77 Pulse Source Pulse Oximeter Pulse Oximetry (%) 98 Oxygen Delivery Method Room Air Intake Visit Reasons: 1 MO FU-Confirmed Transportation Broker Required: No Accompanied by: Self / Same As Patient Allergies No Known Allergies (No Known Allergies*) Allergy (Verified 12/29/24 10:57) HPI Comments Details: Virginia was seen in follow-up for hypertension and mild chronic kidney disease. Her BP is better controlled now . 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 She does not have any orthostatic symptoms, chest pain, shortness of breath, paroxysmal nocturnal dyspnea, orthopnea, pedal edema, hematuria or any ongoing active systemic complaints. She is compliant with a low-sodium diet and her medications. She monitors her blood pressure at home and has not been at goal. She is known to have vascular disease. She has bilateral carotid artery stenosis which has been of closely followed up as well. She had a 24 hour BP monitor which showed uncontrolled BP and medications has been adjusted with major improvement in BP at home. She is having colonoscopy tomorrow [facility] Medical History (Updated 12/28/24 @ 08:42 by Georgia Marques RN) Chronic constipation Acid reflux Bloody stool Arthritis Back pain Osteopenia Sciatica of left side Anemia Diverticulosis Chronic renal disease Full dentures Hyperlipemia HTN (hypertension) Surgical History Hx of bilateral cataract extraction Hx of tonsillectomy Hx of colonoscopy (~02/05/11) Hx of cornea transplant Family History Father No problems noted. Mother No problems noted. Brother No problems noted. Brother No problems noted. Brother No problems noted. Sister No problems noted. Sister No problems noted. Sister No problems noted. Sister No problems noted. Son No problems noted. Daughter No problems noted. Social History Household Members: Other Household Members Other:: son Housing: House Are you a primary ostomy care nurse to a significant other at home: No Do you presently have visiting nurse or other home services: No Comment: aware of trip hazard Patient Tobacco Use Status: Former Tobacco user Tobacco use type: Cigarette e-Cigarette/Vaping Use: Former Use service: No Current occupational status: retired Cognitive needs: Yes (WALKER) Hearing needs: No Vision needs: No Review of Systems Const All systems reviewed & are unremarkable except as noted in HPI and below Physical Exam Vital Signs: Last Vital Signs Pulse 77 12/29/24 10:57 BP 170/60 H 12/29/24 10:57 Pulse Ox 98 12/29/24 10:57 Oxygen Delivery Method Room Air 12/29/24 10:57 BMI result Body Mass Index 26.8 Const General: comfortable and no acute distress Orientation/consciousness: patient oriented x3 HEENT Head: Yes normocephalic Mouth: Normal oral and palatal mucosa present Eyes EOM: EOMs intact bilaterally Neck Neck: Yes supple Resp Auscultation: clear to auscultation bilaterally Cardio Jugular venous distension: no JVD Rate: regular rate GI Palpation (GI): Soft to palpation Auscultation: normal bowel sounds General: Yes no CVA tenderness Back/Spine/Pelvis Back: no CVA tenderness Skin General skin exam: no rashes or lesions noted Neuro General: patient oriented x3 and moves all extremities Extrem General: Yes no pedal edema Results Reviewed Nephrology Results: Sodium, (135-145) 139 mmol/L 12/20/24 Potassium, (3.3-5.1) 5.1 mmol/L 12/20/24 Chloride, (96-108) 113 mmol/L H 12/20/24 Carbon Dioxide, (22-29) 20 mmol/L L 12/20/24 BUN, (9-16) 37 mg/dL H 12/20/24 Creatinine, (0.5-1.4) 1.49 mg/dL H 12/20/24 Calcium, (8.4-10.2) 10.1 mg/dL Δ 10/22/24 Renal US 10/12/24 Assessment & Plan Assessment & Plan (1) HTN (hypertension): Code(s): I10 - Essential (primary) hypertension Category: Medical Qualifiers: Hypertension type: primary hypertension Qualified Code(s): I10 - Essential (primary) hypertension (2) CKD stage 3a, GFR 45-59 ml/min: Code(s): N18.31 - Chronic kidney disease, stage 3a Category: Medical Plan Virginia has longstanding hypertension which is better controlled on current medication regimen. She is history of vascular disease. She has bilateral carotid artery and B/L renal artery stenosis. She checks her blood pressure at home. He has not known to have any proteinuria. Her renal functions are stable. She has no retinopathy, clinical signs of heart failure. She is on statins. Her serum potassium is high normal. She does not consume excess sodium diet. She should maintain good hydration and minimize or avoid nonsteroidal anti-inflammatories. She can continue Spironolactone 50 mg daily. I ordered F/U labs. She may be a candidate for renal vein ablation study or B/L renal artery stenting. I shall decide on this with subsequent visits. I did not make any other medication changes today. Answered all questions. Orders: Orders Blood Urea Nitrogen 2 Months I10 - Essential (primary) hypertension, N18.31 - Chronic kidney disease, stage 3a Creatinine 2 Months I10 - Essential (primary) hypertension, N18.31 - Chronic kidney disease, stage 3a Electrolytes 2 Months I10 - Essential (primary) hypertension, N18.31 - Chronic kidney disease, stage 3a Coding Level of Care Code Est Pt Level 4 (68841) Diagnoses Primary hypertension I10 Hypertension type: primary hypertension CKD stage 3a, GFR 45-59 ml/min N18.31
[2024-12-29 10:57] VITALS: BP 170/60; PULSE 77; O2SAT 98; BMI 26.8
--- OUTSIDE RECORDS SUMMARY | 2024-12-29 12:09 | XMS_ITS | Clinical Summary ---
Author Organization [facility] Address [address] [place] [address] Phone Care Team Providers Care Histology Teacher Name Role Phone Torrey Rodriguez MD Primary Care Provider [phone] Allergies No known active allergies Medications acetaminophen [...] [facility] [address] [facility] [address] [facility] [facility] [address] [place] [address] Mohinder Aragon MD from Last 3 Months [...] ID:Not on file Type:Not on file Address: [address] [id number] Medicare [place] [id number] [place] [address] Care Teams Histology Teacher Relationship Specialty Start Date End Date Torrey Rodriguez MD [address] [place] [address] [id number] [place] PCP - General 05/22/20
== END 2024-12-29 11:18 | disposition home or self-care (01) ==
LOC: HO.HKA 10:48
PROVIDERS: PCP Internal Medicine; Visit Provider Internal Medicine Nephrology
DX: I10 Essential (primary) hypertension (principal); N18.31 Chronic kidney disease, stage 3a
CPT/HCPCS: 99214

== ENCOUNTER → 2024-12-29 10:47 | Outpatient (BNVA) | payer MEDICARE, OTHER, SELFPAY | PROVIDERS: PCP Internal Medicine; Visit Provider Internal Medicine Nephrology | DX: I12.9 Hypertensive chronic kidney disease with stage 1 through stage 4 chronic kidney disease, or unspecified chronic kidney disease (principal); N18.31 Chronic kidney disease, stage 3a | CPT/HCPCS: 99212 ==

== ENCOUNTER 2024-12-30 07:23 | Day surgery (SDC) | payer MEDICARE, OTHER, SELFPAY ==
[2024-12-28 08:51] VITALS: BMI 27.5
--- NOTE | 2024-12-29 09:35 | HO.ANESPROP2 ---
Documented by User: Cece Mercedes NP 12/29/24 09:39 HPI - Anesthesia Eval Consult details Narrative: 89yo F for Colonoscopy Previously followed [facility] Vascular for carotid stenosis, but 0-49% bilat and rec'd no further f/u or imaging if asymptomatic as of 2021 [facility] Active Problems Active Problems: All Active Problems Adrenal nodule (Acute) Carotid artery stenosis (Acute) CKD stage 3a, GFR 45-59 ml/min (Acute) CKD (chronic kidney disease) stage 2, GFR 60-89 ml/min (Acute) Carotid stenosis, bilateral (Acute) Abnormal finding on imaging (Acute) Chronic constipation (Acute) Mild acid reflux (Acute) Acid reflux (Acute) Anemia (Acute) Bloody stool (Acute) HTN (hypertension) (Acute) Past Medical History Medical History Chronic constipation Acid reflux Bloody stool Arthritis Back pain Osteopenia Sciatica of left side Anemia Diverticulosis Chronic renal disease Full dentures Hyperlipemia HTN (hypertension) Family History Family History Father No problems noted. Mother No problems noted. Brother No problems noted. Brother No problems noted. Brother No problems noted. Sister No problems noted. Sister No problems noted. Sister No problems noted. Sister No problems noted. Son No problems noted. Daughter No problems noted. Family history of problems with anesthesia: No Surgical History Surgical History Hx of bilateral cataract extraction Hx of tonsillectomy Hx of colonoscopy (~02/05/11) Hx of cornea transplant History of Problems with Anesthesia: No Social History Social History Household Members: Other Household Members Other:: son Housing: House Are you a primary career and technology education teacher to a significant other at home: No Do you presently have visiting nurse or other home services: No Comment: aware of trip hazard Patient Tobacco Use Status: Former Tobacco user Tobacco use type: Cigarette e-Cigarette/Vaping Use: Former Use Use of substances other than those prescribed or required for medical reasons: No Are you DNR?: No Advance Directives: No Advance Directives Information Provided: Yes service: No Current occupational status: retired Cognitive needs: Yes (WALKER) Hearing needs: No Vision needs: No Meds Allergies Allergy/AdvReac Type Severity Reaction Status Date / Time No Known Allergies (No Known Allergy Verified 12/30/24 08:01 Allergies*) Home Medications ?Medication ?Instructions ?Recorded ?Confirmed ?Last Taken ?Type cyclosporine 0.05 % eye drops in a 1 drp ophthalmic-Right TID 01/02/21 12/28/24 Unknown History dropperette (Restasis) doxycycline monohydrate 50 mg 50 mg PO DAILY 01/02/21 12/28/24 Unknown History capsule erythromycin 5 mg/gram (0.5 %) eye 5 mg ophthalmic-Right BEDTIME 01/02/21 12/28/24 Unknown History ointment fenofibrate 160 mg tablet 160 mg PO DAILY 01/02/21 12/28/24 Unknown History lisinopril 40 mg tablet 40 mg PO BID 01/02/21 12/28/24 Unknown History prednisolone acetate 1 % eye 1 drp ophthalmic-Right DAILY 01/02/21 12/28/24 Unknown History drops,suspension acetaminophen 500 mg tablet 500 mg PO Q6H PRN Pain 04/18/22 12/28/24 12/30/24 05:30 History (Tylenol Extra Strength) aspirin 81 mg tablet,delayed 81 mg PO DAILY 04/18/22 12/28/24 12/16/24 History release (Adult Aspirin Regimen) cholecalciferol (vitamin D3) 10 10 mcg PO DAILY 04/18/22 12/28/24 Unknown History mcg (400 unit) capsule ddhzweet-irc-vbrtn ac 400 1 tab PO DAILY 04/18/22 12/28/24 Unknown History mcg-calcium carb 500 mg-vit K1 20 mcg tablet (Women's 50 Plus Multivitamin) calcium carbonate (Calcium 600) 600 mg PO DAILY 05/26/23 12/28/24 Unknown History famotidine 20 mg tablet (Pepcid AC) 20 mg PO DAILY PRN Heartburn 06/25/23 12/28/24 Unknown History Exam Height,Weight and Vital Signs: Height 5 ft 3 in Weight 70.307 kg Narrative Narrative: US carotid duplex BI 2021 IMPRESSION: 1. RIGHT: Minimal, non-hemodynamically significant stenosis of the proximal right internal carotid artery corresponding to a 0-49% stenosis by velocity criteria. 2. LEFT: Minimal, non-hemodynamically significant stenosis of the proximal left internal carotid artery corresponding to a 0-49% stenosis by velocity criteria. Assessment and Plan Assessment Anesthesia Assessment: Chart Reviewed Final Anesthetic Review Family History of Problems with Anesthesia: No History of Problems with Anesthesia: No Documented by User: Jonny Sanabria MD 12/30/24 09:00 [facility] Past Medical History Medical History Chronic constipation Acid reflux Bloody stool Arthritis Back pain Osteopenia Sciatica of left side Anemia Diverticulosis Chronic renal disease Full dentures Hyperlipemia HTN (hypertension) Family History Family History Father No problems noted. Mother No problems noted. Brother No problems noted. Brother No problems noted. Brother No problems noted. Sister No problems noted. Sister No problems noted. Sister No problems noted. Sister No problems noted. Son No problems noted. Daughter No problems noted. Surgical History Surgical History Hx of bilateral cataract extraction Hx of tonsillectomy Hx of colonoscopy (~02/05/11) Hx of cornea transplant Social History Social History Household Members: Other Household Members Other:: son Housing: House Are you a primary career and technology education teacher to a significant other at home: No Do you presently have visiting nurse or other home services: No Comment: aware of trip hazard Patient Tobacco Use Status: Former Tobacco user Tobacco use type: Cigarette e-Cigarette/Vaping Use: Former Use Use of substances other than those prescribed or required for medical reasons: No Are you DNR?: No Advance Directives: No Advance Directives Information Provided: Yes service: No Current occupational status: retired Cognitive needs: Yes (WALKER) Hearing needs: No Vision needs: No Meds Allergies Allergy/AdvReac Type Severity Reaction Status Date / Time No Known Allergies (No Known Allergy Verified 12/30/24 08:01 Allergies*) Home Medications ?Medication ?Instructions ?Recorded ?Confirmed ?Last Taken ?Type cyclosporine 0.05 % eye drops in a 1 drp ophthalmic-Right TID 01/02/21 12/28/24 Unknown History dropperette (Restasis) doxycycline monohydrate 50 mg 50 mg PO DAILY 01/02/21 12/28/24 Unknown History capsule erythromycin 5 mg/gram (0.5 %) eye 5 mg ophthalmic-Right BEDTIME 01/02/21 12/28/24 Unknown History ointment fenofibrate 160 mg tablet 160 mg PO DAILY 01/02/21 12/28/24 Unknown History lisinopril 40 mg tablet 40 mg PO BID 01/02/21 12/28/24 Unknown History prednisolone acetate 1 % eye 1 drp ophthalmic-Right DAILY 01/02/21 12/28/24 Unknown History drops,suspension acetaminophen 500 mg tablet 500 mg PO Q6H PRN Pain 04/18/22 12/28/24 12/30/24 05:30 History (Tylenol Extra Strength) aspirin 81 mg tablet,delayed 81 mg PO DAILY 04/18/22 12/28/24 12/16/24 History release (Adult Aspirin Regimen) cholecalciferol (vitamin D3) 10 10 mcg PO DAILY 04/18/22 12/28/24 Unknown History mcg (400 unit) capsule ezvujmho-ify-lttao ac 400 1 tab PO DAILY 04/18/22 12/28/24 Unknown History mcg-calcium carb 500 mg-vit K1 20 mcg tablet (Women's 50 Plus Multivitamin) calcium carbonate (Calcium 600) 600 mg PO DAILY 05/26/23 12/28/24 Unknown History famotidine 20 mg tablet (Pepcid AC) 20 mg PO DAILY PRN Heartburn 06/25/23 12/28/24 Unknown History Exam Airway Mallampati Class: II TM Dist: >3cm Neck ROM: Full Denture: Upper and Lower Heart: ok Lungs: ok Assessment and Plan Assessment Anesthesia Assessment: Anesthesia Plan Discussed Final Anesthetic Review NPO: Yes ASA Class: III Final Preanesthetic Review: No Changes in Pt Med Stat, Meds/Allgs Chart Reviewed, Consent Obtained/Reviewed and Anes Risks/Benef Reviewed Patient Risk: Intermediate Procedure Risk: Low Anesthetic Plan Anesthetic Plan: MAC: and Agree w/ Assess. and Plan Disposition: Standard PACU
[2024-12-30 08:01] VITALS: BP 148/52; PULSE 73; RESP 16; TEMP 36.1; O2SAT 97; BMI 25.5
[2024-12-30] MEDS: Lactated Ringers 1,000 ML 100 ML IVCONT (08:15)
--- NOTE | 2024-12-30 09:16 | MHC.SHP ---
Pre-Procedural Eval Section A - 24 Hr Update-Section A only Date of Service: 12/30/24 Section B - Complete if H&P > 30 days Chief Complaint: Rectal bleeding Details of Present Illness: Abnormal finding on imaging Chronic constipation Mild acid reflux Acid reflux Bloody stool Arthritis Back pain Osteopenia Sciatica of left side Anemia Mild heartburn Diverticulosis Chronic renal disease Full dentures Hyperlipemia HTN (hypertension) Surgical History Hx of tonsillectomy Hx of cornea transplant Hx of right cataract extraction Hx of colonoscopy (~02/05/11) Hx of cornea transplant Present Medications: see Short Stay Collaborative assessment Allergies: Allergies Allergy/AdvReac Type Severity Reaction Status Date / Time No Known Allergies (No Known Allergy Verified 12/30/24 08:01 Allergies*) Review of Systems Review of Systems Comment: 10 point ROS negative Exam Exam Comment: Gen appear: No acute distress HEENT: no icterus Chest: No overt resp distress Abd: soft, nontender, nondistended Psych: Stable affect, answering questions appropriately Neuro: A/Ox3 noted to move all extremities spontaneously Ext: no peripheral edema Plan Diagnosis/Plan: Unchanged I have reviewed the history and physical and performed a pertinent physical examination on my patient. No changes have occurred unless specified. Time Spent With Patient Time: Total time managing care of this patient today ____ minutes.
--- NOTE | 2024-12-30 09:40 | P.OPN-COLO_ITS ---
Colonoscopy Operative Note Operative Note Date of Service: 12/30/24 Narrative: Procedure: Colonoscopy Indication: Rectal bleeding Endoscopist: Niki Beck MD Anesthesia Provider: Dr Jonny Sanabria Anesthesia type: MAC Instrument: Olympus [id number]-H190L Consent: Indication, risks vs benefits, and alternatives were discussed with the patient who gave written informed consent to proceed. EKG, pulse, pulse oximetry and blood pressure were monitored throughout the procedure. Please see anesthesia flowsheet. Procedure: The patient was brought to the procedure room and placed in the left lateral decubitus position. IV medications were administered by the anesthesia provider in attendance. A digital rectal exam was performed which was abnormal for external hemorrhoids. A distal attachment cap was affixed to the tip of the colonoscope which was then inserted through the anus and advanced through the colon to the cecum at 75 cm,and terminal ileum. Appendiceal orifice and ileocecal valve were identified. Mucosa was carefully examined under high definition white light as the instrument was slowly withdrawn in a retrograde panoramic fashion. Retroflexion was performed in rectum. The procedure was not difficult. There were no immediate obvious complications. The quality of the prep was BBPS: 3+3+3 = adequate Withdrawal time 6 minutes. Limitations: No limitations. Findings: Mucosa: Normal to cecum and terminal ileum. Protruding lesions: * Large internal hemorrhoids without stigmata of recent bleeding. Excavated lesions: * Moderate diverticulosis of left sided colon and a few small mouthed diverticula were noted in terminal ileum as well. Impression: 1. Normal colon and terminal ileum mucosa 2. Diverticulosis 3. External and internal hemorrhoids Recommendations: - One time episode of rectal bleeding was likely secondary to hemorrhoids. - Routine colonoscopy in future not indicated due to age
[2024-12-30 09:46] VITALS: BP 100/42; PULSE 60; RESP 19; TEMP 36.3; O2SAT 98
[2024-12-30 10:01] VITALS: BP 124/40; PULSE 65; RESP 19; TEMP 36.6; O2SAT 98
--- NOTE | 2024-12-30 11:42 | HO.POSTANES ---
Post Anesthesia Evaluation Post Anesthesia Evaluation Date of Service: 12/30/24 Vital Signs: Vital Signs Temp Pulse Resp BP Pulse Ox O2 Del Method 12/30/24 10:01 98 F 65 19 124/40 L 98 Room Air 12/30/24 09:46 97.4 F 60 19 100/42 L 98 Room Air 12/30/24 08:01 97.0 F 73 16 148/52 H 97 Room Air Anesthesia: Monitored Mental Status: Awake Pain Control: Satisfactory Nausea/Vomiting: None Hydration: Adequate Anesthesia-Related Issues: No Anes. Related Issues
== END 2024-12-30 10:24 | disposition home or self-care (01) ==
PROVIDERS: PCP Internal Medicine; Visit Provider Internal Medicine
PROC: 0DJD8ZZ Inspection of Lower Intestinal Tract, Via Natural or Artificial Opening Endoscopic (ICD-10-PCS; CPT 45378; principal; 2024-12-30 09:00)
DX: K62.5 Hemorrhage of anus and rectum (principal); K57.30 Diverticulosis of large intestine without perforation or abscess without bleeding; K64.8 Other hemorrhoids; K64.4 Residual hemorrhoidal skin tags; I12.9 Hypertensive chronic kidney disease with stage 1 through stage 4 chronic kidney disease, or unspecified chronic kidney disease; N18.30 Chronic kidney disease, stage 3 unspecified; D64.9 Anemia, unspecified; Z87.891 Personal history of nicotine dependence
CPT/HCPCS: G0121; J2003; J2704

== ENCOUNTER → 2024-12-30 07:23 | Outpatient (BNV) | payer MEDICARE, OTHER, SELFPAY | PROVIDERS: PCP Internal Medicine; Visit Provider Internal Medicine | DX: K62.5 Hemorrhage of anus and rectum (principal); K57.90 Diverticulosis of intestine, part unspecified, without perforation or abscess without bleeding; K64.8 Other hemorrhoids | CPT/HCPCS: 45378 ==

== ENCOUNTER 2025-01-03 12:50 | Outpatient (AMB) | payer MEDICARE, OTHER, SELFPAY ==
[2025-01-03 13:42] VITALS: BP 148/50; PULSE 76; TEMP 36.4; O2SAT 98; BMI 26.7
--- NOTE | 2025-01-03 13:42 | AM.OFFWIN_ITS ---
Intake Vital Signs 01/03/25 13:42 Height 5 ft 3 in Weight 151 lb BMI 26.7 BP 148/50 H Blood Pressure Location Rt brachial Position Sitting Pulse 76 Pulse Source Pulse Oximeter Temp 97.5 F Temp Source Oral Pulse Oximetry (%) 98 Oxygen Delivery Method Room Air Intake Visit Reasons: EP contact still in eye?? Intake Note: pt presents with concern for possible hard contact (blue in color) stuck in right eye Patient Tobacco Use Status: Former Tobacco user Allergies No Known Allergies (No Known Allergies*) Allergy (Verified 01/03/25 13:44) Do you need a note to return to daycare/school/sports/work: No HPI HPI Comments History of Present Illness Details 89 y/o Female patient who presents to [facility] in clinic with c/o Contact lens stuck inside eye. She does wear one Hard Lens on right eye after Cornea Transplant (~ 20 years ago). Yesterday night while taking the contact lens out for Bed, she felt the lens moving inside eye but when she went to remove it was not inside eye or on her fingers. She thinks either lens is still inside eye or fell on the ground. Pt has an City Assessor - Dr. Madsen, his Office is closed on Mondays. Reports feeling the contact lens inside right upper eyelid. Reports that the Hard Lens is Blue in color. [facility] Medical History (Updated 01/03/25 @ 15:33 by Antonia Vale NP) Contact lens stuck Chronic constipation Acid reflux Bloody stool Arthritis Back pain Osteopenia Sciatica of left side Anemia Diverticulosis Chronic renal disease Full dentures Hyperlipemia HTN (hypertension) Surgical History Hx of bilateral cataract extraction Hx of tonsillectomy Hx of colonoscopy (~02/05/11) Hx of cornea transplant Family History Father No problems noted. Mother No problems noted. Brother No problems noted. Brother No problems noted. Brother No problems noted. Sister No problems noted. Sister No problems noted. Sister No problems noted. Sister No problems noted. Son No problems noted. Daughter No problems noted. Social History Household Members: Other Household Members Other:: son Housing: House Are you a primary career development coordinator to a significant other at home: No Do you presently have visiting nurse or other home services: No Comment: aware of trip hazard Patient Tobacco Use Status: Former Tobacco user Tobacco use type: Cigarette e-Cigarette/Vaping Use: Former Use service: No Current occupational status: retired Cognitive needs: Yes (WALKER) Hearing needs: No Vision needs: No Review of Systems Const All systems reviewed & are unremarkable except as noted in HPI and below Physical Exam Vital Signs: Last Vital Signs Temp 97.5 F 01/03/25 13:42 Pulse 76 01/03/25 13:42 BP 148/50 H 01/03/25 13:42 Pulse Ox 98 01/03/25 13:42 Oxygen Delivery Method Room Air 01/03/25 13:42 BMI result Body Mass Index 26.7 Const General: no acute distress Nutritional Appearance: well nourished Orientation/consciousness: patient oriented x3 Eyes Other: Lifted right upper eyelid but unable to see any Lens Eyelids: Yes eyelids normal Conjunctivae: conjunctivae normal Neuro General: patient oriented x3, gait normal and moves all extremities Psych Speech and movement: Normal speech and movement present Assessment & Plan Assessment & Plan (1) Contact lens stuck: Code(s): H57.89 - Other specified disorders of eye and adnexa Plan: Unable to see any contact lens inside eye. Advised to call Dr. Madsen tomorrow Coding Level of Care Code Est Pt Level 4 (98006) Diagnoses Contact lens stuck H57.89 Time Spent (min) 20
--- OUTSIDE RECORDS SUMMARY | 2025-01-03 13:57 | XMS_ITS | Clinical Summary ---
Author Organization [facility] Address [address] [place] [address] Phone Care Team Providers Care Journeyman Millwright Name Role Phone Torrey Rodriguez MD Primary Care Provider [phone] Allergies No known active allergies Medications acetaminophen [...] [facility] [address] [facility] [address] [place] [address] Mohinder Aragon MD from Last 3 Months [...] ID:Not on file Type:Not on file Address: [address] [id number] Medicare [place] [id number] [place] [address] Care Teams Journeyman Millwright Relationship Specialty Start Date End Date Torrey Rodriguez MD [address] [place] [address] [id number] [place] PCP - General 05/22/20
== END 2025-01-03 14:54 | disposition home or self-care (01) ==
PROVIDERS: PCP Internal Medicine; Visit Provider Nurse Practitioner Family
DX: H57.89 Other specified disorders of eye and adnexa (principal)

== ENCOUNTER → 2025-01-03 12:50 | Outpatient (BNVA) | payer MEDICARE, OTHER, SELFPAY | PROVIDERS: PCP Internal Medicine; Visit Provider Nurse Practitioner Family | DX: H57.89 Other specified disorders of eye and adnexa (principal) | CPT/HCPCS: 99212 ==

== ENCOUNTER 2025-01-07 10:33 | Outpatient (AMB) | payer MEDICARE, OTHER, SELFPAY ==
--- NOTE | 2025-01-07 10:36 | MHC.OFFVIS ---
Vital Signs 01/07/25 10:46 Height 5 ft 3 in Weight 149 lb BMI 26.4 BP 157/68 H Blood Pressure Location Lt brachial Position Sitting Pulse 60 Intake Visit Reasons: colonoscopy results Intake Note: Patient follow up for Colonoscopy results. Patient denies any GI issues. Generation Technologist Required: No Accompanied by: Spouse Allergies No Known Allergies (No Known Allergies*) Allergy (Verified 01/07/25 10:37) Medication List - Last Reconciled 01/07/25 by Shruti Ennis CNP acetaminophen (Tylenol Extra Strength) 500 mg PO Q6H PRN aspirin (Adult Aspirin Regimen) 81 mg PO DAILY atorvastatin 40 mg PO DAILY calcium carbonate (Calcium 600) 600 mg PO DAILY carboxymethylcellulose sodium 0.5% (Refresh Tears) 1 drp ophthalmic (eye) BID cholecalciferol (vitamin D3) 10 mcg PO DAILY clonidine HCl 0.1 mg PO ONCE 90 days cyclosporine 0.05% (Restasis) 1 drp ophthalmic-Right TID doxycycline monohydrate 50 mg PO DAILY erythromycin 5 mg ophthalmic-Right BEDTIME famotidine (Pepcid AC) 20 mg PO DAILY PRN fenofibrate 160 mg PO DAILY lisinopril 40 mg PO BID methylcellulose (laxative) (Citrucel) 500 mg PO DAILY metoprolol succinate ER 75 mg (1.5 x 50 mg) PO BID tx-zcd-nrgxm-calcium carb-K1 400 mcg-500 mg calcium-20 mcg (Women's 50 Plus Multivitamin) 1 tab PO DAILY nifedipine ER 120 mg (2 x 60 mg) PO DAILY 90 days polyethylene glycol 3350 (Miralax) 17 grams PO DAILY PRN prednisolone acetate 1% 1 drp ophthalmic-Right DAILY spironolactone 50 mg PO DAILY 90 days HPI HPI colonoscopy results: Details: Patient is a 89-year-old female with PMH of hypertension, hyperlipidemia, arthritis, CKD and acid reflux. Follow-up post-colonoscopy performed on 12-30-2024 due to reported blood in stools. She present with her son. She shares resolution of constipation, which was previously addressed with Miralax. Currently, bowel movements are regular without straining. No current concerns or issues with hemorrhoids; denies pain, itching, or bleeding. Patient recently started taking OTC fiber gummies daily (~3 days ago) and reports this is helping maintain regular bowel function. No additional GI symptoms reported, and no hospitalizations, urgent care visits, or symptom flares since the last visit. Patient denies need for ongoing Miralax use, given improvement in symptoms. [facility] Medical History (Updated 01/07/25 @ 11:11 by Shruti Ennis CNP) Hemorrhoids Contact lens stuck Chronic constipation Acid reflux Bloody stool Arthritis Back pain Osteopenia Sciatica of left side Anemia Diverticulosis Chronic renal disease Full dentures Hyperlipemia HTN (hypertension) Surgical History Hx of bilateral cataract extraction Hx of tonsillectomy Hx of colonoscopy (~02/05/11) Hx of cornea transplant Family History Father No problems noted. Mother No problems noted. Brother No problems noted. Brother No problems noted. Brother No problems noted. Sister No problems noted. Sister No problems noted. Sister No problems noted. Sister No problems noted. Son No problems noted. Daughter No problems noted. Social History Household Members: Other Household Members Other:: son Housing: House Are you a primary pharmacist critical care to a significant other at home: No Do you presently have visiting nurse or other home services: No Comment: aware of trip hazard Patient Tobacco Use Status: Former Tobacco user Tobacco use type: Cigarette e-Cigarette/Vaping Use: Former Use service: No Current occupational status: retired Cognitive needs: Yes (WALKER) Hearing needs: No Vision needs: No Review of Systems Const Reports as per HPI ENT Reports as per HPI Card Reports as per HPI Resp Reports as per HPI GI Reports as per HPI Reports as per HPI Physical Exam Vital Signs: Oxygen Delivery Method Room Air 01/07/25 10:38 BMI result Body Mass Index 26.2 Const General: healthy appearing, no acute distress and well developed Nutritional Appearance: average body habitus Orientation/consciousness: patient oriented x3 HEENT Head: Yes normal to inspection, Yes normocephalic and Yes atraumatic Face and sinus: Yes normal facial exam Eyes General: appearance normal, both eyes and all related structures Neck Neck: Yes normal visual inspection Resp Effort & Inspection: normal respiratory effort, able to speak in complete sentences, no tracheal deviation and symmetric chest movement GI Auscultation: normal bowel sounds Neuro General: patient oriented x3 Gait exam (Neuro): Normal gait present Psych Appearance: grossly normal Mental Status: mental status grossly normal Speech and movement: Normal speech and movement present Affect: normal affect Attitude: cooperative Thought process: Normal thought process present Thought content: Normal thought content present Insight: Good insight present (Psych) Judgement: Good judgement present (Psych) Results Reviewed Results Reviewed: Operative Note Date of Service: 12/30/24 Narrative: Procedure: Colonoscopy Indication: Rectal bleeding Endoscopist: Niki Beck MD Anesthesia Provider: Dr Jonny Sanabria Anesthesia type: MAC Instrument: Olympus [id number]-H190L Consent: Indication, risks vs benefits, and alternatives were discussed with the patient who gave written informed consent to proceed. EKG, pulse, pulse oximetry and blood pressure were monitored throughout the procedure. Please see anesthesia flowsheet. Procedure: The patient was brought to the procedure room and placed in the left lateral decubitus position. IV medications were administered by the anesthesia provider in attendance. A digital rectal exam was performed which was abnormal for external hemorrhoids. A distal attachment cap was affixed to the tip of the colonoscope which was then inserted through the anus and advanced through the colon to the cecum at 75 cm,and terminal ileum. Appendiceal orifice and ileocecal valve were identified. Mucosa was carefully examined under high definition white light as the instrument was slowly withdrawn in a retrograde panoramic fashion. Retroflexion was performed in rectum. The procedure was not difficult. There were no immediate obvious complications. The quality of the prep was BBPS: 3+3+3 = adequate Withdrawal time 6 minutes. Limitations: No limitations. Findings: Mucosa: Normal to cecum and terminal ileum. Protruding lesions: Large internal hemorrhoids without stigmata of recent bleeding. Excavated lesions: Moderate diverticulosis of left sided colon and a few small mouthed diverticula were noted in terminal ileum as well. Impression: 1. Normal colon and terminal ileum mucosa 2. Diverticulosis 3. External and internal hemorrhoids Recommendations: - One time episode of rectal bleeding was likely secondary to hemorrhoids. - Routine colonoscopy in future not indicated due to age Assessment & Plan Assessment & Plan (1) Bloody stool: Comment: 12/30/24 colonoscopy complete with adequate prep-normal mucosa throughout, external/internal hemorrhoids, Moderate diverticulosis (left side and TI) 01/2011 Colonoscopy-Hyperplastic colonic mucosa with intramucosal lymphoid nodules + Diverticulosis primarily left-sided. Code(s): K92.1 - Melena Category: Medical Plan: resolved. Suspect secondary to hemorrhoids. See below. (2) Hemorrhoids: Code(s): K64.9 - Unspecified hemorrhoids Category: Medical Qualifiers: Hemorrhoid type: other Qualified Code(s): K64.8 - Other hemorrhoids Plan: Stable and asymptomatic. Patient educated on use of Miralax as needed for constipation prevention. Additional Testing: None required. Medications: -Miralax directed for PRN use if constipation develops. -OTC fiber gummies added to medication list for daily use (patient-initiated, started ~3 days prior). Lifestyle Recommendations: Continue fiber gummies and optimize dietary fiber/hydration intake to prevent straining during bowel movements. Follow-Up Plan: No follow-up scheduled unless future symptoms arise (e.g., bleeding, hemorrhoid flare-ups). (3) Diverticulosis: Code(s): K57.90 - Diverticulosis of intestine, part unspecified, without perforation or abscess without bleeding Category: Medical Plan: Stable; no concerning symptoms or complications reported since colonoscopy. Repeat screening colonoscopy not indicated based on above findings and age. Additional Testing: None indicated at this time. Medications: as above Lifestyle Recommendations: Promote high-fiber diet and hydration to reduce risk of diverticulitis and to maintain bowel regularity. Follow-Up Plan: Routine care; return to clinic as needed for changes in symptoms. Plan Follow-up as needed Time: I spent a total of 15 minutes on the date of encounter which includes: Preparing to see the patient (reviewed previous documentation, test results and medical history) Performing a medically appropriate exam and/or evaluation Ordering medications, tests, and procedures Documenting clinical information in the health record Coding Level of Care Code Established Pt New Pt Level 2 (53569) Patient Type Established Diagnoses Bloody stool K92.1 Other hemorrhoids K64.8 Hemorrhoid type: other Diverticulosis K57.90
[2025-01-07 10:46] VITALS: BP 157/68; PULSE 60; BMI 26.4
--- OUTSIDE RECORDS SUMMARY | 2025-01-07 11:12 | XMS_ITS | Clinical Summary ---
Author Organization [facility] Address [address] [place] [address] Phone Care Team Providers Care Business Line Controller Name Role Phone Torrey Rodriguez MD Primary Care Provider [phone] Allergies No known active allergies Medications acetaminophen [...] [facility] [address] [facility] [address] [place] [address] Mohinder Aragon MD from Last 3 Months [...] ID:Not on file Type:Not on file Address: [address] [id number] Medicare [place] [id number] [place] [address] Care Teams Business Line Controller Relationship Specialty Start Date End Date Torrey Rodriguez MD [address] [place] [address] [address] [place] PCP - General 05/22/20
--- OUTSIDE RECORDS SUMMARY | 2025-01-07 11:12 | XMS_ITS | Clinical Summary ---
Author Organization [facility] Address [address] [place] [address] Phone Care Team Providers Care Ocular Care Technologist Name Role Phone Torrey Rodriguez MD Primary Care Provider Allergies No known active allergies Medications acetaminophen (TYLENOL) 500 mg capsule Take by mouth. Active ATENOLOL ORAL Take by mouth. Active CALCIUM CARBONATE/VITAMI N D3 (CALCIUM 600 + D,3, ORAL) Take by mouth. Active CLONIDINE HCL ORAL Take by mouth. Active FENOFIBRATE ORAL Take by mouth. Active ATORVASTATIN CALCIUM (LIPITOR ORAL) Take by mouth. Active LISINOPRIL ORAL Take by mouth. Active MULTIVITAMIN ORAL Take by mouth. Active NIFEDIPINE ORAL Take by mouth. Active polyvinyl alcohol-povidone , PF, (REFRESH CLASSIC) 1.4-0.6 % Dpet Place 1 drop into the right eye 3 (three) times a day as needed. Active cloNIDine (PLPVLNTW-NYV-3) 0.2 mg/[address] 1 patch onto the skin once a week. Active CHOLECALCIFEROL, VITAMIN D3, (VITAMIN D3 ORAL) Take by mouth. Active METOPROLOL SUCCINATE ORAL Take by mouth. Active prednisoLONE acetate (PRED FORTE) 1 % ophthalmic suspension Place 1 drop into the right eye daily. 10 mL 12 4 Active cycloSPORINE (RESTASIS) 0.05 % suspension Place 1 drop into the right eye 3 (three) times a day. DISPENSE BRAND NAME ONLY. 60 each 5 Active doxycycline monohydrate (MONODOX) 50 MG capsule TAKE 1 CAPSULE BY MOUTH EVERY MORNING 60 capsule 3 5 Active erythromycin (ROMYCIN) ophthalmic ointmentIndicati ons:History of corneal transplant Place 0.5 inches into the right eye 2 (two) times a day. 3.5 g 6 5 Active Active Problems Problem Noted Date Diagnosed Date Elevated cholesterol 08/30/2014 Overview (04/18/2015): Hypercholesterolemia Hypertensive disorder 03/24/2012 Overview (07/02/2014): Hypertensive disorder Family History Medical History Relation Comments Hypertension Father hypertension Type 2 Diabetes Father diabetes mellitu s type 2 Uncoded Family History Father elevated cholesterol Relation Status Comments Father Social History Tobacco Use Types Packs/Day Years Used Date Smoking Tobacco: Never Smokeless Tobacco: Never Alcohol Use Standard Drinks/Week Comments No 0 (1 standard drink = 0.6 oz pur e alcohol) seldom Education Answer Date Recorded Are you interested in more education? Not on subha e 09/05/2022 Are you concerned about learning? Not on file 09/05/2022 No 09/05/2022 No 09/05/2022 Digital Access Answer Date Recorded No 10/06/2022 No 10/06/2022 Reliable internet access at home? Not on file 10/06/2022 Device with a working camera? Not on file Comments Unknown Sex and Gender Information Value Date Recorded Sex Assigned at Not on file Legal Sex Female 5:29 PM EST Gender Identity Not on file Sexual Orientation Not on file Plan of Treatment Upcoming Encounters Date Type Department Care Team (Late st Contact Info) Description 05/24/2025 11:20 AM EST Office Visit [facility] Cornea [address] [address] Jaun Aragon MD,MPH,MSc [address] [place] [phone] [email or web address] 05/24/2025 1:00 PM EST Office Visit [facility] Optometry [address] [address] Eve Asencio, OD [address] [place] [phone] [email or web address] Health Maintenance Due Date Last Done Comments Adult Td,Tdap Booster 1935 CREATININE LEVEL 1937 POTASSIUM LEVEL 1937 DEPRESSION SCREENING 1949 PNEUMOCOCCAL VACCINES (50+ y ears) (1 of 1 - PCV) 1987 ZOSTER VACCINES (1 of 2) 1987 OSTEOPOROSIS SCREENING INITI AL (ONE-TIME) 2002 RSV VACCINE (1 - 1-dose 75+ series) 01/17/2012 COVID-19 VACCINE (2 - 2023-2 5 season) 2024 07/13/2020 HEPATITIS A VACCINES Aged Out No long er eligible based on patient's age to complete this topic HIB VACCINES Aged Out No longer eligi ble based on patient's age to complete this topic MENINGOCOCCAL VACCINES (ACWY) Aged Out No longer eligible based on patient's age to complete this topic MENINGOCOCCAL VACCINES (B) Aged Out N o longer eligible based on patient's age to complete this topic Medical Devices Not on file Insurance MEDICARE PART A & B [facility] MEDICARE SUPPLEMENT MEDICARE PART A & B Member Subscriber Plan / Payer (Ef fective 2002-) Name:Virginia Perez Member ID:[id number] Relation to Subscriber:Self Name:Virginia Perez Subscriber ID:[id number] Payer ID:[id number] Group ID:Not on file Type:Medicare Address: [employer] [address] [place] [address] MEDICARE SUPPLEMENT MEDICARE PART A & B Member Subscriber Plan / Payer (Ef fective 2002-Present) Name:Virginia Perez Member ID:[id number] Relation to Subscriber:Self Name:Virginia Perez Subscriber ID:[id number] Payer ID:[id number] Group ID:Not on file Type:Medicare Address: [employer] [address] [place] [address] MEDICARE SUPPLEMENT MEDICARE PART A & B [facility] MEDICARE SUPPLEMENT MEDICARE PART A & B Member Subscriber Plan / Payer (Ef fective 2002-Present) Name:Virginia Perez Member ID:[id number] Relation to Subscriber:Self Name:Virginia Perez Subscriber ID:[id number] Payer ID:[id number] Group ID:Not on file Type:Medicare Address: [employer] [address] MEDICARE SUPPLEMENT MEDICARE PART A & B Member Subscriber Plan / Payer ( fective 2002-) Name:Virginia Perez Member ID:[id number] Relation to Subscriber:Self Name:Virginia Perez Subscriber ID:[id number] Payer ID:[id number] Group ID:Not on file Type:Medicare Address: [employer] [address] [place] [address] MEDICARE SUPPLEMENT MEDICARE PART A & B Member Subscriber Plan / Payer ( fective 2002-) Name:Virginia Perez Member ID:[id number] Relation to Subscriber:Self Name:Virginia Perez Subscriber ID:[id number] Payer ID:[id number] Group ID:Not on file Type:Medicare Address: [facility] [employer] [address] MEDICARE SUPPLEMENT MEDICARE PART A & B Member Subscriber Plan / Payer ( fective 2002-) Name:Virginia Perez Member ID:[id number] Relation to Subscriber:Self Name:Virginia Perez Subscriber ID:[id number] Payer ID:[id number] Group ID:Not on file Type:Medicare Address: [employer] [address] [place] [id number] [facility] MEDICARE SUPPLEMENT [place] PART [place] [phone] [facility] MEDICARE SUPPLEMENT Care Teams Ocular Care Technologist Relationship Specialty Start Date End Date Torrey Rodriguez MD [address] [place] [address] [address] [place] [address] PCP - General Internal Medicine 08/22/15 Additional Source Comments The information contained in this document represents components of the legal health record. It is not the complete legal health record.[facility]
== END 2025-01-07 11:00 | disposition home or self-care (01) ==
LOC: HO.HGI 10:34
PROVIDERS: PCP Internal Medicine; Visit Provider Nurse Practitioner Family
DX: K92.1 Melena (principal); K64.8 Other hemorrhoids; K57.90 Diverticulosis of intestine, part unspecified, without perforation or abscess without bleeding
CPT/HCPCS: 99212

== ENCOUNTER → 2025-01-07 10:33 | Outpatient (BNVA) | payer MEDICARE, OTHER, SELFPAY | PROVIDERS: PCP Internal Medicine; Visit Provider Nurse Practitioner Family | DX: K92.1 Melena (principal); K64.8 Other hemorrhoids; K57.90 Diverticulosis of intestine, part unspecified, without perforation or abscess without bleeding | CPT/HCPCS: 99212 ==

== ENCOUNTER 2025-01-27 08:13 | Outpatient (REF) | payer MEDICARE, OTHER, SELFPAY ==
[2025-01-27 09:55] LABS: Hematocrit 34.1 % (37.0-47.0); Hemoglobin 10.6 g/dl (12.0-16.0); Mean Corpuscular HGB Conc 31.1 g/dl (31.0-35.0); Mean Corpuscular Hemoglobin 31.4 pg (27.0-33.0); Mean Corpuscular Volume 100.9 fL (80.0-98.0); NRBC Abs Auto 0.000 X10*3/uL (0.0-0.012); NRBC Pct Auto 0.0 /100WBC (0.0-0.2); Platelet Count 277 X10*3/uL (160-400); Red Blood Count 3.38 X10*6/uL (4.20-5.50); White Blood Count 5.9 X10*3/uL (4.8-10.8)
[2025-01-27 10:17] LABS: Iron 103 mcg/dL (30-160); Percent Iron Saturation 30 % (15-50); Total Iron Binding Capacity 338 mcg/dL (228-428); Unsaturated Iron Binding 235 ug/dL
[2025-01-27 10:38] LABS: Ferritin 137 ng/mL (10-250)
== END 2025-01-27 08:14 | disposition home or self-care (01) ==
LOC: HO.10HDL 08:13
PROVIDERS: Visit Provider Physician Assistant Medical
DX: R53.83 Other fatigue (principal); D64.9 Anemia, unspecified
CPT/HCPCS: 36415; 82728; 83540; 84443; 85027

== ENCOUNTER 2025-02-16 08:18 | Outpatient (REF) | payer MEDICARE, OTHER, SELFPAY ==
[2025-02-16 09:40] LABS: Anion Gap 11 (12-20); Blood Urea Nitrogen 46 mg/dL (9-16); Carbon Dioxide 18 mmol/L (22-29); Chloride 118 mmol/L (96-108); Estimated Glomerular Filt Rate 33; Potassium 5.7 mmol/L (3.3-5.1); Sodium 141 mmol/L (135-145)
== END 2025-02-16 08:19 | disposition home or self-care (01) ==
LOC: HO.10HDL 08:18
PROVIDERS: Visit Provider Internal Medicine Nephrology
DX: I12.9 Hypertensive chronic kidney disease with stage 1 through stage 4 chronic kidney disease, or unspecified chronic kidney disease (principal); N18.31 Chronic kidney disease, stage 3a
CPT/HCPCS: 36415; 80051; 82565; 84520

== ENCOUNTER 2025-02-23 11:33 | Outpatient (AMB) | payer MEDICARE, OTHER, SELFPAY ==
--- NOTE | 2025-02-23 12:05 | HO.NEPHOV_ITS ---
Vital Signs 02/23/25 12:06 Height 5 ft 3 in Weight 150 lb 6 oz BMI 26.6 BP 150/50 H Blood Pressure Location Rt brachial Position Sitting Pulse 70 Pulse Source Pulse Oximeter Pulse Oximetry (%) 98 Oxygen Delivery Method Room Air Intake Visit Reasons: 2mon f/u w/labs Electrician Chief Required: No Accompanied by: Self / Same As Patient Allergies No Known Allergies (No Known Allergies*) Allergy (Verified 02/23/25 12:06) HPI Comments Details: Virginia was seen in follow-up for hypertension and mild chronic kidney disease. Her BP is better controlled now . 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 She does not have any orthostatic symptoms, chest pain, shortness of br eath, paroxysmal nocturnal dyspnea, orthopnea, pedal edema, hematuria or any ongoing active systemic complaints. She is compliant with a low-sodium diet and her medications. She monitors her blood pressure at home and has not been at goal. She is known to have vascular disease. She has bilateral carotid artery stenosis which has been of closely followed up as well. She had a 24 hour BP monitor which showed uncontrolled BP and medications has been adjusted with major improvement in BP at home. [facility] Medical History (Updated 02/23/25 @ 12:[address] Wilburn MD) Osteoarthritis of knees, bilateral Low back pain Fatigue Hemorrhoids Contact lens stuck Chronic constipation Acid reflux Bloody stool Arthritis Back pain Osteopenia Sciatica of left side Anemia Diverticulosis Chronic renal disease Full dentures Hyperlipemia HTN (hypertension) Surgical History Hx of bilateral cataract extraction Hx of tonsillectomy Hx of colonoscopy (~02/05/11) Hx of cornea transplant Family History Father No problems noted. Mother No problems noted. Brother No problems noted. Brother No problems noted. Brother No problems noted. Sister No problems noted. Sister No problems noted. Sister No problems noted. Sister No problems noted. Son No problems noted. Daughter No problems noted. Social History Household Members: Other Household Members Other:: son Housing: House Are you a primary before and after school daycare worker to a significant other at home: No Do you presently have visiting nurse or other home services: No Comment: aware of trip hazard Patient Tobacco Use Status: Former Tobacco user Tobacco use type: Cigarette e-Cigarette/Vaping Use: Former Use service: No Current occupational status: retired Cognitive needs: Yes (WALKER) Hearing needs: No Vision needs: No Review of Systems Const All systems reviewed & are unremarkable except as noted in HPI and below Physical Exam Vital Signs: Last Vital Signs Pulse 70 02/23/25 12:06 BP 150/50 H 02/23/25 12:06 Pulse Ox 98 02/23/25 12:06 Oxygen Delivery Method Room Air 02/23/25 12:06 BMI result Body Mass Index 26.6 Const General: comfortable and no acute distress Orientation/consciousness: patient oriented x3 HEENT Head: Yes normocephalic Mouth: Normal oral and palatal mucosa present Eyes EOM: EOMs intact bilaterally Neck Neck: Yes supple Resp Auscultation: clear to auscultation bilaterally Cardio Jugular venous distension: no JVD Rate: regular rate GI Palpation (GI): Soft to palpation Auscultation: normal bowel sounds General: Yes no CVA tenderness Back/Spine/Pelvis Back: no CVA tenderness Skin General skin exam: no rashes or lesions noted Neuro General: patient oriented x3 and moves all extremities Extrem General: Yes no pedal edema Results Reviewed Nephrology Results: Hgb, (12.0-16.0) 10.6 g/dl L 01/27/25 WBC, (4.8-10.8) 5.9 X10*3/uL 01/27/25 Plt Count, (160-400) 277 X10*3/uL 01/27/25 Sodium, (135-145) 141 mmol/L 02/16/25 Potassium, (3.3-5.1) 5.7 mmol/L H 02/16/25 Chloride, (96-108) 118 mmol/L H 02/16/25 Carbon Dioxide, (22-29) 18 mmol/L L 02/16/25 BUN, (9-16) 46 mg/dL H 02/16/25 Creatinine, (0.5-1.4) 1.51 mg/dL H 02/16/25 Renal US 10/12/24 Assessment & Plan Assessment & Plan (1) HTN (hypertension): Comment: BP today was 140/72 Code(s): I10 - Essential (primary) hypertension Category: Medical Qualifiers: Hypertension type: primary hypertension Qualified Code(s): I10 - Essential (primary) hypertension (2) CKD stage 3a, GFR 45-59 ml/min: Code(s): N18.31 - Chronic kidney disease, stage 3a Category: Medical (3) Hyperkalemia: Code(s): E87.5 - Hyperkalemia Category: Medical Plan Virginia has longstanding hypertension which is better controlled on current medication regimen. She is history of vascular disease. She has bilateral carotid artery and B/L renal artery stenosis. She checks her blood pressure at home. He has not known to have any proteinuria. Her renal functions are stable. She has no retinopathy, clinical signs of heart failure. She is on statins. Her serum potassium is high & I started her on Kionex 30 Gram once a week. She does not consume excess sodium diet. She should maintain good hydration and minimize or avoid nonsteroidal anti-inflammatories. She can continue Spironolactone 50 mg daily for now. I ordered F/U labs. She may be a candidate for renal vein ablation study or B/L renal artery stenting. I shall decide on this with subsequent visits. I did not make any other medication changes today. Answered all questions. Orders: Orders Blood Urea Nitrogen 6 Weeks E87.5 - Hyperkalemia, I10 - Essential (primary) hypertension, N18.31 - Chronic kidney disease, stage 3a Creatinine 6 Weeks E87.5 - Hyperkalemia, I10 - Essential (primary) hypertension, N18.31 - Chronic kidney disease, stage 3a Electrolytes 6 Weeks E87.5 - Hyperkalemia, I10 - Essential (primary) hype rtension, N18.31 - Chronic kidney disease, stage 3a Medications: New sodium polystyrene sulfonate 30 grams PO .once a week 453.6 grams 6RF Coding Level of Care Code Est Pt Level 4 (40726) Diagnoses Primary hypertension I10 Hypertension type: primary hypertension CKD stage 3a, GFR 45-59 ml/min N18.31 Hyperkalemia E87.5
[2025-02-23 12:06] VITALS: BP 150/50; PULSE 70; O2SAT 98; BMI 26.6
== END 2025-02-23 12:19 | disposition home or self-care (01) ==
LOC: HO.HKA 11:34
PROVIDERS: PCP Internal Medicine; Visit Provider Internal Medicine Nephrology
DX: I10 Essential (primary) hypertension (principal); N18.31 Chronic kidney disease, stage 3a; E87.5 Hyperkalemia
CPT/HCPCS: 99214

== ENCOUNTER → 2025-02-23 11:33 | Outpatient (BNVA) | payer MEDICARE, OTHER, SELFPAY | PROVIDERS: PCP Internal Medicine; Visit Provider Internal Medicine Nephrology | DX: I10 Essential (primary) hypertension (principal); N18.31 Chronic kidney disease, stage 3a; E87.5 Hyperkalemia | CPT/HCPCS: 99212 ==

== ENCOUNTER 2025-04-19 08:50 | Outpatient (REF) | payer MEDICARE, OTHER, SELFPAY ==
[2025-04-19 10:40] LABS: Anion Gap 12 (12-20); Blood Urea Nitrogen 36 mg/dL (9-16); Carbon Dioxide 20 mmol/L (22-29); Chloride 114 mmol/L (96-108); Estimated Glomerular Filt Rate 37; Potassium 5.4 mmol/L (3.3-5.1); Sodium 141 mmol/L (135-145)
== END 2025-04-19 08:51 | disposition home or self-care (01) ==
LOC: HO.10HDL 08:50
PROVIDERS: Visit Provider Internal Medicine Nephrology
DX: I12.9 Hypertensive chronic kidney disease with stage 1 through stage 4 chronic kidney disease, or unspecified chronic kidney disease (principal); N18.31 Chronic kidney disease, stage 3a; E87.5 Hyperkalemia
CPT/HCPCS: 36415; 80051; 82565; 84520

== ENCOUNTER 2025-05-06 11:32 | Outpatient (AMB) | payer MEDICARE, OTHER, SELFPAY ==
--- OUTSIDE RECORDS SUMMARY | 2025-05-06 11:35 | XMS_ITS | Clinical Summary ---
Author Organization [facility] Address [address] [place] [address] Phone Care Team Providers Care Tag Clerk Name Role Phone Torrey Rodriguez MD Primary Care Provider [phone] Allergies No known active allergies Medications acetaminophen [...] patient's age to complete this topic [place] [address] Medicare [facility] Medicare Care Teams Tag Clerk Relationship Specialty Start Date End Date Torrey Rodriguez MD [address] [place] PCP - General 05/22/20
--- OUTSIDE RECORDS SUMMARY | 2025-05-06 11:35 | XMS_ITS | Clinical Summary ---
Author Organization [facility] Address [address] [place] [address] Phone Care Team Providers Care Commercial Leasing Agent Name Role Phone Torrey Rodriguez MD Primary [...] times a day as needed. Active cloNIDine (MDGKKHUR-XWB-5) 0.2 mg/[address] 1 patch onto [...] BRAND NAME ONLY. 60 each 5 Active erythromycin (ROMYCIN) ophthalmic ointmentIndicati ons:History of corneal transplant Place 0.5 inches into the right eye 2 (two) times a day. 3.5 g 6 5 Active doxycycline monohydrate (MONODOX) 50 MG capsule TAKE 1 CAPSULE BY MOUTH EVERY DAY IN THE MORNING 60 capsule 3 5 Active Active Problems Problem Noted Date Diagnosed Date Elevated cholesterol 08/30/2014 Overview (04/18/2015): Hypercholesterolemia Hypertensive disorder 03/24/2012 Overview (07/02/2014): Hypertensive disorder Encounters Date Type Department Care Team Description 03/20/2025 Refill [facility] [address] [place], [place] [id number] Johan Dow MD Medication Refill from Last 3 Months Family History Medical History Relation Comments Hypertension [...] Description 05/24/2025 11:20 AM EST Office Visit [facility] [address] [place] [address] Jaun Aragon MD,MPH,MSc [address] [place] [address] [email or web address] 05/24/2025 1:00 PM EST Office Visit [facility] [address] [address] Eve Asencio OD [address] [place] [address] [email or web address] Health Maintenance Due Date Last Done Comments Adult Td,Tdap Booster 1937 CREATININE LEVEL 1937 POTASSIUM LEVEL 1937 DEPRESSION SCREENING 1949 PNEUMOCOCCAL VACCINES (50+ years) (1 of 1 - PCV) 1987 ZOSTER VACCINES (1 of 2) 1987 OSTEOPOROSIS SCREENING INITI AL (ONE-TIME) 2002 RSV VACCINE (1 - 1-dose 75+ series) 01/17/2012 INFLUENZA VACCINE (#1) 2024 0, 02/15/2019, 02/14/2017 COVID-19 VACCINE (2 - 2024-2 6 season) 2025 07/13/2020 HEPATITIS A VACCINES Aged Out No [...] file Insurance MEDICARE PART A & [place] [address] [place] [address] MEDICARE SUPPLEMENT MEDICARE PART A & B MEDICARE SUPPLEMENT MEDICARE PART A & B Member Subscriber Plan / Payer ( fective 2002-) Name:Virginia Perez Member ID:[id number] Relation to Subscriber:Self Name:Virginia Perez Subscriber ID:[id number] Payer ID:[id number] Group ID:Not on file Type:Medicare Address: [employer] [address] MEDICARE SUPPLEMENT MEDICARE PART A & B MEDICARE SUPPLEMENT MEDICARE PART A & B MEDICARE SUPPLEMENT MEDICARE PART A & B [id number] MEDICARE SUPPLEMENT MEDICARE PART A & B MEDICARE SUPPLEMENT MEDICARE PART A & B MEDICARE SUPPLEMENT MEDICARE PART A & B [facility] MEDICARE SUPPLEMENT Care Teams Commercial Leasing Agent Relationship Specialty Start Date End Date Torrey Rodriguez MD [address] [place] [address] [place] [address] PCP - General Internal Medicine 08/22/15 Additional Source Comments The information contained in this document represents components of the legal health record. It is not the complete legal health record.[facility]
--- NOTE | 2025-05-06 11:51 | HO.NEPHOV ---
Vital Signs 05/06/25 11:52 Height 5 ft 3 in Weight 149 lb BMI 26.4 BP 130/60 Blood Pressure Location Rt brachial Position Sitting Pulse 75 Pulse Source Pulse Oximeter Pulse Oximetry (%) 97 Oxygen Delivery Method Room Air Intake Visit Reasons: 2 mo f/u w/ labs-LVM Male Infertility Specialist Required: No Accompanied by: Self / Same As Patient Allergies No Known Allergies (No Known Allergies*) Allergy (Verified 05/06/25 11:54) HPI Comments Details: Virginia was seen in follow-up for hypertension and mild chronic kidney disease. Her BP is better controlled now . 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 She does not have any orthostatic symptoms, chest pain, shortness of breath, paroxysmal nocturnal dyspnea, orthopnea, pedal edema, hematuria or any ongoing active systemic complaints. She is compliant with a low-sodium diet and her medications. She monitors her blood pressure at home and has not been at goal. She is known to have vascular disease. She has bilateral carotid artery stenosis which has been of closely followed up as well. She had a 24 hour BP monitor which showed uncontrolled BP and medications has been adjusted with major improvement in BP at home. [facility] Medical History Osteoarthritis of knees, bilateral Low back pain Fatigue Hemorrhoids Contact lens stuck Chronic constipation Acid reflux Bloody stool Arthritis Back pain Osteopenia Sciatica of left side Anemia Diverticulosis Chronic renal disease Full dentures Hyperlipemia HTN (hypertension) Surgical History Hx of bilateral cataract extraction Hx of tonsillectomy Hx of colonoscopy (~02/05/11) Hx of cornea transplant Family History Father No problems noted. Mother No problems noted. Brother No problems noted. Brother No problems noted. Brother No problems noted. Sister Mental health disorder Sister No problems noted. Sister No problems noted. Sister No problems noted. Son No problems noted. Daughter No problems noted. Social History Household Members: Other Household Members Other:: son Housing: House Are you a primary workforce investment act career manager to a significant other at home: No Do you presently have visiting nurse or other home services: No Comment: aware of trip hazard Patient Tobacco Use Status: Former Tobacco user Tobacco use type: Cigarette e-Cigarette/Vaping Use: Former Use service: No Current occupational status: retired Cognitive needs: Yes (WALKER) Hearing needs: No Vision needs: Yes (rx glasses) Review of Systems Const All systems reviewed & are unremarkable except as noted in HPI and below Physical Exam Vital Signs: Last Vital Signs Pulse 75 05/06/25 11:52 BP 162/60 H 05/06/25 11:52 Pulse Ox 97 05/06/25 11:52 Oxygen Delivery Method Room Air 05/06/25 11:52 BMI result Body Mass Index 26.4 Const General: comfortable and no acute distress Orientation/consciousness: patient oriented x3 HEENT Head: Yes normocephalic Mouth: Normal oral and palatal mucosa present Eyes EOM: EOMs intact bilaterally Neck Neck: Yes supple Resp Auscultation: clear to auscultation bilaterally Cardio Jugular venous distension: no JVD Rate: regular rate GI Palpation (GI): Soft to palpation Auscultation: normal bowel sounds General: Yes no CVA tenderness Back/Spine/Pelvis Back: no CVA tenderness Skin General skin exam: no rashes or lesions noted Neuro General: patient oriented x3 and moves all extremities Extrem General: Yes no pedal edema Results Reviewed Nephrology Results: Hgb, (12.0-16.0) 10.6 g/dl L 01/27/25 WBC, (4.8-10.8) 5.9 X10*3/uL 01/27/25 Plt Count, (160-400) 277 X10*3/uL 01/27/25 Sodium, (135-145) 141 mmol/L 04/19/25 Potassium, (3.3-5.1) 5.4 mmol/L H 04/19/25 Chloride, (96-108) 114 mmol/L H 04/19/25 Carbon Dioxide, (22-29) 20 mmol/L L 04/19/25 BUN, (9-16) 36 mg/dL H 04/19/25 Creatinine, (0.5-1.4) 1.34 mg/dL 04/19/25 Renal US 10/12/24 Assessment & Plan Assessment & Plan (1) HTN (hypertension): Comment: BP today was 160/74 and 150/64 Code(s): I10 - Essential (primary) hypertension Category: Medical Qualifiers: Hypertension type: primary hypertension Qualified Code(s): I10 - Essential (primary) hypertension (2) CKD stage 3a, GFR 45-59 ml/min: Code(s): N18.31 - Chronic kidney disease, stage 3a Category: Medical Plan Virginia has longstanding hypertension which is better controlled on current medication regimen. She is history of vascular disease. She has bilateral carotid artery and B/L renal artery stenosis. She checks her blood pressure at home. He has not known to have any proteinuria. Her renal functions are stable. She has no retinopathy, clinical signs of heart failure. She is on statins. Her serum potassium is high & I started her on Kionex 30 Gram once a week. She does not consume excess sodium diet. She should maintain good hydration and minimize or avoid nonsteroidal anti-inflammatories. She can continue Spironolactone 50 mg daily for now. I ordered F/U labs. She may be a candidate for renal vein ablation study or B/L renal artery stenting. I shall decide on this with subsequent visits. I did not make any other medication changes today. Answered all questions. Orders: Orders Electrolytes 3 Months I10 - Essential (primary) hypertension Blood Urea Nitrogen 3 Months I10 - Essential (primary) hypertension Creatinine 3 Months I10 - Essential (primary) hypertension Medications: Changed From sodium polystyrene sulfonate 30 grams PO .once a week 453.6 grams 6RF To sodium polystyrene sulfonate 30 grams PO .twice a week 453.6 grams 6RF Refilled metoprolol succinate ER 75 mg (1.5 x 50 mg) PO BID 270 tabs 3RF Coding Level of Care Code Est Pt Level 4 (89406) Diagnoses Primary hypertension I10 Hypertension type: primary hypertension CKD stage 3a, GFR 45-59 ml/min N18.31
[2025-05-06 11:52] VITALS: BP 130/60; PULSE 75; O2SAT 97; BMI 26.4
== END 2025-05-06 12:19 | disposition home or self-care (01) ==
LOC: HO.HKA 11:33
PROVIDERS: PCP Internal Medicine; Visit Provider Internal Medicine Nephrology
DX: I10 Essential (primary) hypertension (principal); N18.31 Chronic kidney disease, stage 3a
CPT/HCPCS: 99214

== ENCOUNTER → 2025-05-06 11:32 | Outpatient (BNVA) | payer MEDICARE, OTHER, SELFPAY | PROVIDERS: PCP Internal Medicine; Visit Provider Internal Medicine Nephrology | DX: I12.9 Hypertensive chronic kidney disease with stage 1 through stage 4 chronic kidney disease, or unspecified chronic kidney disease (principal); N18.31 Chronic kidney disease, stage 3a; Z87.891 Personal history of nicotine dependence | CPT/HCPCS: 99212 ==